=== PATIENT | female | born 1945 | race Caucasian/White ===

== ENCOUNTER 2016-09-24 19:54 | Emergency (ER) | payer OTHER, MEDICARE ==
[~2016-09-24] VITALS: Ht 157.5 cm; Wt 79.6 kg
[~2016-09-24 19:54] MED LIST: ASCA500 PO; ASPCH81 PO; CALCTAB5 PO; HYDR25TA5 PO; LISI-725 PO; LPT40 PO; MULT-506 PO; PLV75 PO; PRT/40 PO; VITA400C15 PO
[2016-09-24 20:00] VITALS: TEMP 36.4; Ht 157.5 cm; Wt 79.6 kg
[2016-09-24] MEDS ORDERED: SODIUM CHLORIDE 0.9% 1000ML 1,000 ML IV SCH (20:15)
[2016-09-24 20:25] VITALS: O2SAT 98
[2016-09-24 20:59] LABS: BASO % 0.5 %; BASO ABS # 0.03 K/uL (0-0.2); COMPLETE YES; EOS % 3.1 %; HEMATOCRIT 34.8 % (37-47); IG% 0.2 %; LYMPH % 27.2 %; LYMPH ABS # 1.51 K/uL (1.2-3.4); MEAN CELL VOLUME 88.8 fL (80-100); MEAN CORPUSCULAR HEMOGLOBIN 31.1 pg (25-34); MEAN CORPUSCULAR HGB CONC 35.1 g/dl (32-36); MEAN PLATELET VOLUME 9.2 fL (7.4-10.4); MONO % 11.9 %; NEUT % 57.1 %; PLATELET COUNT 200 K/uL (130-400); RED BLOOD COUNT 3.92 M/uL (4.2-5.4); WHITE BLOOD COUNT 5.56 K/uL (4.8-10.8)
[2016-09-24 21:12] LABS: INR 0.9 (0.9-1.1); PARTIAL THROMBOPLASTIN RATIO 0.9
[2016-09-24 21:17] LABS: BLOOD UREA NITROGEN 23 mg/dl (7-18); BUN/CREATININE RATIO 24.4 (10-20); CALCIUM 8.7 mg/dl (8.5-10.1); CARBON DIOXIDE 26 mmol/L (21-32); CHLORIDE 105 mmol/L (98-107); CREATININE 0.96 mg/dl (0.60-1.20); GLUCOSE 143 mg/dl (70-99); POTASSIUM 3.4 mmol/L (3.5-5.1); SODIUM 141 mmol/L (136-145)
--- NOTE | 2016-09-24 21:17 | DIAGNOSTIC IMAGING REPORT ---
HEAD CT NONCONTRAST CT DOSE: 601.98 mGy.cm HISTORY: Stroke symptoms. TECHNIQUE: Multiaxial CT images of the head were performed without the use of intravenous contrast. Automated exposure control was utilized for this study. Comparison: Head CT and brain MRI 09/06/2016. Findings: A few partially opacified ethmoid air cells. No fluid levels within the paranasal sinuses. The mastoid air cells are clear. The calvarium and skull base are intact. There is no mass, hematoma, midline shift, acute infarct. White matter hypodensity is nonspecific but suggestive of microvascular ischemic change. The ventricles and sulci demonstrate mild age-related involutional changes. Old small infarct seen within the left cerebellar hemisphere and right ospina radiata. These remain unchanged. Impression: No significant change compared to the prior study. No acute intracranial abnormality. Old small infarcts as described above. Electronically signed by: Aung Glover M.D. 09/24/2016 9:15 PM Dictated Date/Time: 09/24/2016 9:09 PM
[2016-09-24 21:22] LABS: CKMB/CK RATIO 1.4 (0-3.0)
--- NOTE | 2016-09-24 21:40 | EMERGENCY ROOM VISIT NOTE ---
History Report prepared by Donte: Campbell Foreman Under the Supervision of: Dr. Ramesh Moncada M.D. First contact with patient: 20:15 Chief Complaint: NEURO SYMPTOMS Stated Complaint: NECK PAIN,NUMBNESS IN FINGERS,TWINGE IN HEAD History of Present Illness The patient is a 71 year old female who presents to the Emergency Room with complaints of constant neurologic symptoms beginning 2.5 hours ago. She has a history of multiple ischemic strokes, and has had two diagnosed within the past month. The first stroke was diagnosed with MRI on August 25, and the second by MRI on September 06. She complained of left arm, hand and face weakness and numbness at the time of her most recent stroke. The patient's current symptoms include intermittent left sided neck pain, constant left third and fourth finger pain and numbness, and an episode of a "fluttering" pain sensation in the left side of her scalp. She denies any weakness. She states that her current symptoms feel different from her previous strokes. The patient is on Plavix and Aspirin. She has no history of narrowing arteries in her neck. She notes that she was helping her friend move today, and may have strained her muscles doing this. Source of History: patient Onset: 2.5 hours ago Position: head (left scalp), neck (left side), finger(s) (left third and fourth) Quality: other (neurologic symptoms ) Associated Symptoms: + neck pain (intermittent left side), + numbness (left third and fourth), No weakness Note: The patient has associated episode of "fluttering" pain in the left scalp. Review of Systems See HPI for pertinent positives & negatives. A total of 10 systems reviewed and were otherwise negative. Past Medical & Surgical Medical Problems: (1) Acute gallstone pancreatitis (2) Hypertension (3) Indigestion (4) Left hand weakness (5) Numbness and tingling in left arm (6) Stroke Family History Diabetes mellitus Gallbladder disease Heart disease Hypertension Social History Smoking Status: Former Smoker Alcohol Use: occasionally Drug Use: none Marital Status: in relationship Housing Status: lives with family Occupation Status: unemployed Current/Historical Medications Scheduled Ascorbic Acid (Vitamin C), 500 MG PO DAILY Aspirin (Aspirin Low Strength), 81 MG PO QAM Atorvastatin (Atorvastatin Calcium), 40 MG PO QAM Calcium (Caltrate), 600 MG PO DAILY Clopidogrel Bisulfate (Clopidogrel), 75 MG PO QAM Hydrochlorothiazide (Hydrochlorothiazide), 25 MG PO QAM Lisinopril (Zestril), 20 MG PO DAILY Multivitamin (Multivitamin), 1 TAB PO DAILY Pantoprazole (Pantoprazole Sodium), 40 MG PO DAILY Tocopheryl Acet,Dl-Alpha (Vitamin E), 400 INTER.UNIT PO DAILY Allergies Coded Allergies: Codeine (Verified Allergy, Unknown, UPSET STOMACH/NAUSEA, 09/24/16) Physical Exam Vital Signs Date Time Temp Pulse Resp B/P Pulse Ox O2 Delivery O2 Flow Rate FiO2 09/24/16 23:46 72 20 129/67 97 Room Air 09/24/16 22:52 79 18 117/73 98 Room Air 09/24/16 21:55 78 20 120/60 98 Room Air 09/24/16 20:25 98 Room Air 09/24/16 20:25 77 09/24/16 20:00 36.4 85 18 157/73 99 Room Air Physical Exam GENERAL: Patient is in no acute distress. HEENT: No acute trauma, normocephalic atraumatic, mucous membranes moist, no nasal congestion, no scleral icterus. NECK: No stridor, no adenopathy, no meningismus, trachea is midline. Tender along the left posterior and lateral neck musculature. No bruits heard. Equal carotid upstrokes. LUNGS: Clear to auscultation bilaterally, no wheeze, no rhonchi, breath sounds equal. HEART: Without murmurs gallops or rubs, regular rate and rhythm. ABDOMEN: Soft, nontender, bowel sounds positive, no hernias, no peritonitis. EXTREMITIES: No cyanosis or edema, full range of motion of all the joints without pain or difficulty, no signs for acute trauma. Strong left radial pulse felt. NEUROLOGIC: Oriented x 3, no acute motor or sensory deficits, no focal weakness. No cerebellar dysfunction or pronator drift. No speech slur or facial droop. SKIN: No rash, no jaundice, no diaphoresis. Medical Decision & Procedures ER Provider Diagnostic Interpretation: CT/US results as stated below per my review and radiologist interpretation: HEAD CT NONCONTRAST Findings: A few partially opacified ethmoid air cells. No fluid levels within the paranasal sinuses. The mastoid air cells are clear. The calvarium and skull base are intact. There is no mass, hematoma, midline shift, acute infarct. White matter hypodensity is nonspecific but suggestive of microvascular ischemic change. The ventricles and sulci demonstrate mild age-related involutional changes. Old small infarct seen within the left cerebellar hemisphere and right ospina radiata. These remain unchanged. Impression: No significant change compared to the prior study. No acute intracranial abnormality. Old small infarcts as described above. Electronically signed by: Aung Glover M.D. BILATERAL CAROTID DOPPLER STUDY FINDINGS: Antegrade flow is seen in the left vertebral artery. No significant flow within the right vertebral artery. The brachial pressures are hemodynamically similar. Mild calcified plaque within the bilateral carotid arteries. The peak systolic velocity within the right ICA is 88 cm/s. The right systolic ratio is 0.9. The peak systolic velocity within the left ICA is 116 centers per second. The left systolic ratio is 1.3. IMPRESSION: No hemodynamically significant stenosis seen within the carotid arteries. No significant flow within the right vertebral artery. This corresponds to the prior neck CTA/MRA findings. Electronically signed by: Aung Glover M.D. Laboratory Results 09/24/16 20:47 Red Blood Count 3.92, Mean Corpuscular Volume 88.8, Mean Corpuscular Hemoglobin 31.1, Mean Corpuscular Hemoglobin Concent 35.1, Mean Platelet Volume 9.2, Neutrophils (%) (Auto) 57.1, Lymphocytes (%) (Auto) 27.2, Monocytes (%) (Auto) 11.9, Eosinophils (%) (Auto) 3.1, Basophils (%) (Auto) 0.5, Neutrophils # (Auto ) 3.18, Lymphocytes # (Auto) 1.51, Monocytes # (Auto) 0.66, Eosinophils # (Auto ) 0.17, Basophils # (Auto) 0.03 09/24/16 20:47 Test 09/24/16 20:47 White Blood Count 5.56 K/uL (4.8-10.8) Red Blood Count 3.92 M/uL (4.2-5.4) Hemoglobin 12.2 g/dL (12.0-16.0) Hematocrit 34.8 % (37-47) Mean Corpuscular Volume 88.8 fL (80-100) Mean Corpuscular Hemoglobin 31.1 pg (25-34) Mean Corpuscular Hemoglobin Concent 35.1 g/dl (32-36) Platelet Count 200 K/uL (130-400) Mean Platelet Volume 9.2 fL (7.4-10.4) Neutrophils (%) (Auto) 57.1 % Lymphocytes (%) (Auto) 27.2 % Monocytes (%) (Auto) 11.9 % Eosinophils (%) (Auto) 3.1 % Basophils (%) (Auto) 0.5 % Neutrophils # (Auto) 3.18 K/uL (1.4-6.5) Lymphocytes # (Auto) 1.51 K/uL (1.2-3.4) Monocytes # (Auto) 0.66 K/uL (0.11-0.59) Eosinophils # (Auto) 0.17 K/uL (0-0.5) Basophils # (Auto) 0.03 K/uL (0-0.2) RDW Standard Deviation 41.2 fL (36.4-46.3) RDW Coefficient of Variation 12.8 % (11.5-14.5) Immature Granulocyte % (Auto) 0.2 % Immature Granulocyte # (Auto) 0.01 K/uL (0.00-0.02) Prothrombin Time 10.0 SECONDS (9.0-12.0) Prothromb Time International Ratio 0.9 (0.9-1.1) Activated Partial Thromboplast Time 24.6 SECONDS (21.0-31.0) Partial Thromboplastin Ratio 0.9 Anion Gap 10.0 mmol/L (3-11) Est Creatinine Clear Calc Drug Dose 54.1 ml/min Estimated GFR () 69.9 Estimated GFR (Non- 60.3 BUN/Creatinine Ratio 24.4 (10-20) Calcium Level 8.7 mg/dl (8.5-10.1) Total Creatine Kinase 76 U/L (26-192) Creatine Kinase MB 1.1 ng/ml (0.5-3.6) Creatine Kinase MB Ratio 1.4 (0-3.0) Troponin I < 0.015 ng/ml (0-0.045) Laboratory results reviewed by me. Medications Administered Medications (Trade) Dose Ordered Sig/Sushil Route Start Time Stop Time Status Last Admin Dose Admin Sodium Chloride (Nss 1000ml) 1,000 ml @ 50 mls/hr Q20H IV 09/24/16 20:15 10/24/16 20:14 09/24/16 20:56 50 MLS/HR ECG Indication: other (neuro symptoms) Rate (beats per minute): 76 Rhythm: normal sinus Findings: no acute ischemic change, no ectopy, other (Poor R-wave progression) ED Course 2014: Ordered NSS 1000 mL @ 50 mL/hr IV. 2022: The patient was evaluated in room B10. A complete history and physical exam was performed. 2130: I checked in on the patient. She is resting comfortably. 5: Reevaluated the patient. Discussed results and discharge instructions: she verbalized understanding and agreement. The patient is ready for discharge. Medical Decision The patient is a 71 year old female who presents to the ED with complaints of intermittent left neck pain, and constant left third and fourth finger numbness and pain. Differential diagnoses considered include stroke, carotid dissection, musculoskeletal pain, nerve impingement, electrolyte imbalance, neurovascular compromise, anemia, and cervical disc disease. There is no leukocytosis or concerning anemia. No significant electrolyte abnormality, kidney failure. EKG shows a normal sinus rhythm, no acute ischemia. Cardiac enzyme testing times one is not suggestive of acute cardiac injury. Brain CT shows some older infarcts, no acute bleed or mass effect. Carotid ultrasound shows no carotid dissection, the findings appear stable compared to her recent testing. On my exam, the patient had no focal neurologic deficits. She was not toxic. The patient presents with some left neck, left shoulder discomfort as well as some left third and fourth finger discomfort. She has no focal neurologic deficits on exam. The left neck pain is reproducible and I think musculoskeletal. She has been doing some lifting today and certainly, she may have aggravated this musculature. I find no evidence for acute stroke. The patient was reassured. She is being discharged home with conservative measures. Impression Primary Impression: Neck pain on left side Additional Impressions: Left hand pain, History of CVA (cerebrovascular accident) Scribe Attestation The scribe's documentation has been prepared under my direction and personally reviewed by me in its entirety. I confirm that the note above accurately reflects all work, treatment, procedures, and medical decision making performed by me. Departure Information Dispostion Home / Self-Care Referrals Tom Pineda M.D. (PCP) Forms HOME CARE DOCUMENTATION FORM, IMPORTANT VISIT INFORMATION, WORK / SCHOOL INSTRUCTIONS Patient Instructions A Signature Page, My [facility] Additional Instructions all meds as before massage to the left neck and muscles may help use tylenol for pain ice to the area for 30 minutes at a time into tomorrow, switch to using heat tomorrow afternoon return for worsening symptoms
--- NOTE | 2016-09-24 23:17 | DIAGNOSTIC IMAGING REPORT ---
BILATERAL CAROTID DOPPLER STUDY HISTORY: Left arm weakness and numbness. poss dissec, left neck COMPARISON: Neck MRA 09/06/2016. TECHNIQUE: Real-time, grayscale, and color Doppler sonography of the carotid arteries was performed. Imaging reviewed in the transverse and longitudinal planes. All measurements were calculated based on NASCET criteria. FINDINGS: Antegrade flow is seen in the left vertebral artery. No significant flow within the right vertebral artery. The brachial pressures are hemodynamically similar. Mild calcified plaque within the bilateral carotid arteries. The peak systolic velocity within the right ICA is 88 cm/s. The right systolic ratio is 0.9. The peak systolic velocity within the left ICA is 116 centers per second. The left systolic ratio is 1.3. IMPRESSION: No hemodynamically significant stenosis seen within the carotid arteries. No significant flow within the right vertebral artery. This corresponds to the prior neck CTA/MRA findings. Electronically signed by: Aung Glover M.D. 09/24/2016 11:15 PM Dictated Date/Time: 09/24/2016 11:08 PM
[2016-09-24 23:46] VITALS: BP 129/67; PULSE 72; O2SAT 97
== END 2016-09-25 00:04 | disposition home or self-care (01) ==
LOC: C.EDB 19:55
DX: M54.2 Cervicalgia (principal); M79.642 Pain in left hand; Z86.73 Personal history of transient ischemic attack (TIA), and cerebral infarction without residual deficits; I10 Essential (primary) hypertension; Z87.891 Personal history of nicotine dependence; Z83.3 Family history of diabetes mellitus; Z82.49 Family history of ischemic heart disease and other diseases of the circulatory system; Z79.02 Long term (current) use of antithrombotics/antiplatelets; Z79.82 Long term (current) use of aspirin; Z79.899 Other long term (current) drug therapy

== ENCOUNTER 2017-02-20 19:35 | Emergency (ER) | payer OTHER, MEDICARE ==
[~2017-02-20] VITALS: Ht 165.1 cm; Wt 2.0 kg
[~2017-02-20 19:35] MED LIST changes: +PANT40TA2 PO; -PRT/40 PO
[2017-02-20 19:40] VITALS: TEMP 36.5; Ht 165.1 cm; Wt 2.0 kg
[2017-02-20 20:58] LABS: BASO % 0.4 %; BASO ABS # 0.02 K/uL (0-0.2); COMPLETE YES; EOS % 1.3 %; HEMATOCRIT 36.9 % (37-47); IG% 0.2 %; LYMPH % 29.4 %; LYMPH ABS # 1.61 K/uL (1.2-3.4); MEAN CORPUSCULAR HEMOGLOBIN 31.9 pg (25-34); MEAN CORPUSCULAR HGB CONC 34.7 g/dl (32-36); MEAN PLATELET VOLUME 9.1 fL (7.4-10.4); MONO % 12.8 %; NEUT % 55.9 %; PLATELET COUNT 225 K/uL (130-400); RED BLOOD COUNT 4.01 M/uL (4.2-5.4); WHITE BLOOD COUNT 5.48 K/uL (4.8-10.8)
[2017-02-20 21:02] LABS: URINE APPEARANCE CLEAR (CLEAR); URINE BILIRUBIN NEG (NEG); URINE COLOR YELLOW; URINE NITRITE NEG (NEG); URINE SPECIFIC GRAVITY 1.018 (1.000-1.030); UROBILINOGEN NEG (NEG)
[2017-02-20 21:03] LABS: MANUAL MICROSCOPIC REQUIRED? NO; REVIEW REQ? NO
[2017-02-20 21:07] LABS: POINT OF CARE TROPONIN I 0.01 ng/ml (0-0.045)
[2017-02-20 21:14] LABS: INR 0.9 (0.9-1.1); PROTHROMBIN TIME (PATIENT) 9.7 SECONDS (9.0-12.0)
[2017-02-20 21:27] LABS: BUN/CREATININE RATIO 19.6 (10-20); CREATININE 0.94 mg/dl (0.60-1.20); POTASSIUM 3.8 mmol/L (3.5-5.1)
--- NOTE | 2017-02-20 21:28 | DIAGNOSTIC IMAGING REPORT ---
LEFT RIBS UNILATERAL WITH PA CHEST CLINICAL HISTORY: left sided pain eval for pna/fx/ptx pain COMPARISON STUDY: None FINDINGS: Negative left ribs. Cortical margins are intact. Lungs are clear. No evidence for focal infiltrate. IMPRESSION: 1. Negative left ribs. 2. Negative chest Electronically signed by: Ankit Felton M.D. 02/20/2017 9:27 PM Dictated Date/Time: 02/20/2017 9:24 PM
[2017-02-20] MEDS ORDERED: KETOROLAC TROMETHAMINE 30 MG/ML VIAL IV STA (21:46)
[2017-02-20 22:00] LABS: CALCIUM 8.7 mg/dl (8.5-10.1)
[2017-02-20 22:15] VITALS: BP 137/72; PULSE 66; O2SAT 95
--- NOTE | 2017-02-21 01:54 | EMERGENCY ROOM VISIT NOTE ---
History Report prepared by Donte: Ashley Aparicio Under the Supervision of: Dr. Peter Thompson M.D. First contact with patient: 20:14 Chief Complaint: BACK PAIN Stated Complaint: CHEST PAIN History of Present Illness The patient is a 71 year old female who presents to the Emergency Room with complaints of persistent back pain starting yesterday. Two days ago, she did some gardening work. She spent some time yanking on the cord to start a roto- tiller which would not start. The next day, she started having pain in her mid back on the left side. She thought it might be muscle pain from her work the previous day. Today the pain spread around her left side and under her breast. She describes the pain as sharp and jabbing. The pain worsens with movement. She has had looser stools since she had her gallbladder removed. She denies any worsening diarrhea. She has left sided numbness from a stroke. The numbness is mostly in her left fingers, but has spread up into her hand yesterday. She denies any cough, SOB, fever, vomiting, abdominal pain, difficulty urinating, hematuria, black or bloody stools, arm pain, leg pain, or swelling in the legs. She took her blood pressure medications today. She notes that she used to get spasms in her neck which feels similar to her current pain. Source of History: patient Onset: yesterday Position: back Quality: sharp, other (jabbing) Timing: other (persistent) Modifying Factors (Worsening): movement Associated Symptoms: + numbness, No fevers, No cough, No SOB, No vomiting, No abdominal pain, No melena, No hematochezia, No urinary symptoms Note: Pt denies arm pain, leg swelling, leg pain. Review of Systems See HPI for pertinent positives & negatives. A total of 10 systems reviewed and were otherwise negative. Past Medical & Surgical Medical Problems: (1) Acute gallstone pancreatitis (2) Hypertension (3) Indigestion (4) Left hand weakness (5) Numbness and tingling in left arm (6) Stroke Family History Diabetes mellitus Gallbladder disease Heart disease Hypertension Social History Smoking Status: Never Smoker Alcohol Use: occasionally Drug Use: none Marital Status: in relationship Housing Status: lives with family Occupation Status: unemployed Current/Historical Medications Scheduled Ascorbic Acid (Vitamin C), 500 MG PO DAILY Aspirin (Aspirin Low Strength), 81 MG PO QAM Atorvastatin (Atorvastatin Calcium), 40 MG PO QAM Calcium (Caltrate), 600 MG PO DAILY Clopidogrel Bisulfate (Clopidogrel), 75 MG PO QAM Hydrochlorothiazide (Hydrochlorothiazide), 25 MG PO QAM Lisinopril (Zestril), 20 MG PO DAILY Multivitamin (Multivitamin), 1 TAB PO DAILY Pantoprazole (Pantoprazole Sodium), 40 MG PO DAILY Tocopheryl Acet,Dl-Alpha (Vitamin E), 400 INTER.UNIT PO DAILY Allergies Coded Allergies: Codeine (Verified Adverse Reaction, Unknown, UPSET STOMACH/NAUSEA, 01/11/17 ) Physical Exam Vital Signs Date Time Temp Pulse Resp B/P (MAP) Pulse Ox O2 Delivery O2 Flow Rate FiO2 02/20/17 22:15 66 137/72 95 Room Air 02/20/17 21:51 67 02/20/17 20:37 71 20 147/61 98 Room Air 02/20/17 19:57 70 02/20/17 19:40 36.5 72 18 159/88 98 Room Air Physical Exam Constitutional: Vital signs reviewed. Eyes: Pupils are equal round reactive to light. Conjunctiva are noninjected. ENT: Pharynx is clear without erythema or exudate. Mucous membranes are moist. Neck supple without meningeal signs. Respiratory: Clear to auscultation bilaterally. Breath sounds are equal bilaterally. Cardiovascular: Regular rate and rhythm. No rubs or gallops. GI: Soft, nondistended with minimal left upper quadrant tenderness to palpation. Bowel sounds are present. Musculoskeletal: No peripheral edema. No lower extremity tenderness. Integumentary: No cyanosis. Neurological: The patient is awake and alert. Cranial nerves II-XII are intact. Motor is 5 out of 5 all extremities. Sensation is intact to light touch all extremities. No loss of sensation or diminished sensation in the left hand. Normal speech. No pronator drift. No limb ataxia. Psychiatric: Normal affect. Medical Decision & Procedures ER Provider Diagnostic Interpretation: X-ray results as stated below per interpretation by me and the radiologist: LEFT RIBS UNILATERAL WITH PA CHEST CLINICAL HISTORY: left sided pain eval for pna/fx/ptx pain COMPARISON STUDY: None FINDINGS: Negative left ribs. Cortical margins are intact. Lungs are clear. No evidence for focal infiltrate. IMPRESSION: 1. Negative left ribs. 2. Negative chest Electronically signed by: Ankit Felton M.D. 02/20/2017 9:27 PM Dictated Date/Time: 02/20/2017 9:24 PM Laboratory Results 02/20/17 20:45 Red Blood Count 4.01, Mean Corpuscular Volume 92.0, Mean Corpuscular Hemoglobin 31.9, Mean Corpuscular Hemoglobin Concent 34.7, Mean Platelet Volume 9.1, Neutrophils (%) (Auto) 55.9, Lymphocytes (%) (Auto) 29.4, Monocytes (%) (Auto) 12.8, Eosinophils (%) (Auto) 1.3, Basophils (%) (Auto) 0.4, Neutrophils # (Auto ) 3.07, Lymphocytes # (Auto) 1.61, Monocytes # (Auto) 0.70, Eosinophils # (Auto ) 0.07, Basophils # (Auto) 0.02 02/20/17 20:45 Test 02/20/17 20:30 02/20/17 20:45 02/20/17 20:47 Urine Color YELLOW Urine Appearance CLEAR (CLEAR) Urine pH 5.0 (4.5-7.5) Urine Specific [place] 1.018 (1.000-1.030) Urine Protein NEG (NEG) Urine Glucose (UA) NEG (NEG) Urine Ketones NEG (NEG) Urine Occult Blood NEG (NEG) Urine Nitrite NEG (NEG) Urine Bilirubin NEG (NEG) Urine Urobilinogen NEG (NEG) Urine Leukocyte Esterase SMALL (NEG) Urine WBC (Auto) 1-5 /hpf (0-5) Urine RBC (Auto) 0-4 /hpf (0-4) Urine Hyaline Casts (Auto) 1-5 /lpf (0-5) Urine Epithelial Cells (Auto) 10-20 /lpf (0-5) Urine Bacteria (Auto) NEG (NEG) White Blood Count 5.48 K/uL (4.8-10.8) Red Blood Count 4.01 M/uL (4.2-5.4) Hemoglobin 12.8 g/dL (12.0-16.0) Hematocrit 36.9 % (37-47) Mean Corpuscular Volume 92.0 fL (80-100) Mean Corpuscular Hemoglobin 31.9 pg (25-34) Mean Corpuscular Hemoglobin Concent 34.7 g/dl (32-36) Platelet Count 225 K/uL (130-400) Mean Platelet Volume 9.1 fL (7.4-10.4) Neutrophils (%) (Auto) 55.9 % Lymphocytes (%) (Auto) 29.4 % Monocytes (%) (Auto) 12.8 % Eosinophils (%) (Auto) 1.3 % Basophils (%) (Auto) 0.4 % Neutrophils # (Auto) 3.07 K/uL (1.4-6.5) Lymphocytes # (Auto) 1.61 K/uL (1.2-3.4) Monocytes # (Auto) 0.70 K/uL (0.11-0.59) Eosinophils # (Auto) 0.07 K/uL (0-0.5) Basophils # (Auto) 0.02 K/uL (0-0.2) RDW Standard Deviation 42.9 fL (36.4-46.3) RDW Coefficient of Variation 12.7 % (11.5-14.5) Immature Granulocyte % (Auto) 0.2 % Immature Granulocyte # (Auto) 0.01 K/uL (0.00-0.02) Prothrombin Time 9.7 SECONDS (9.0-12.0) Prothromb Time International Ratio 0.9 (0.9-1.1) Activated Partial Thromboplast Time 24.9 SECONDS (21.0-31.0) Partial Thromboplastin Ratio 1.0 Anion Gap 5.0 mmol/L (3-11) Est Creatinine Clear Calc Drug Dose 1.8 ml/min Estimated GFR () 71.7 Estimated GFR (Non- 61.9 BUN/Creatinine Ratio 19.6 (10-20) Calcium Level 8.7 mg/dl (8.5-10.1) Total Bilirubin 0.4 mg/dl (0.2-1) Direct Bilirubin 0.1 mg/dl (0-0.2) Aspartate Amino Transf (AST/SGOT) 13 U/L (15-37) Alanine Aminotransferase (ALT/SGPT) 20 U/L (12-78) Alkaline Phosphatase 66 U/L (45-117) Total Protein 7.2 gm/dl (6.4-8.2) Albumin 3.8 gm/dl (3.4-5.0) Lipase 755 U/L (73-393) Bedside D-Dimer 304 ng/mlFEU (0-450) Bedside Troponin I 0.010 ng/ml (0-0.045) Laboratory results as reviewed by me. Medications Administered Medications (Trade) Dose Ordered Sig/Sushil Route Start Time Stop Time Status Last Admin Dose Admin Ketorolac Tromethamine (Toradol Inj) 10 mg NOW STAT IV 02/20/17 21:46 02/20/17 21:47 DC 02/20/17 22:16 10 MG ECG Indication: chest pain Rate (beats per minute): 67 Rhythm: normal sinus Findings: no acute ischemic change, no ectopy ED Course 2016: The patient was evaluated in room C3. A complete history and physical exam was performed. 2137: I reevaluated the patient. She is still having some pain. She notes that she has a prior history of pancreatitis. We are waiting for the lipase to come back. 2145: Toradol Inj 10 mg IV. 2222: I reevaluated the patient. She is feeling better now after the Toradol. I discussed the results and treatment plan with her. She verbalized understanding and agreement. Her lipase was 755, but she notes that the last time she had pancreatitis her lipase was higher. I advised her to stay on a clear liquid diet. She has an appointment in 3 days with her PCP. She will be discharged home. Medical Decision This is a 71-year-old female who presents with left-sided flank pain. Differential diagnoses considered include strain, intervertebral disc disease, pneumothorax, pneumonia, kidney stone, pancreatitis, pulmonary embolism. I did perform a limited focused review of portions of the patient's old chart on the electronic medical record. The patient has a prior history of stroke with left sided weakness. Medication Reconciliation: I attest that I have personally reviewed the patient' s current medication list. Blood Pressure Screening: Patient was found to have an elevated blood pressure and was referred to their primary doctor for recheck and further treatment. I did evaluate the patient as noted above. IV access was established. The patient was placed on a continuous traffic monitor specialist. I did order and personally review the patient's 12-lead EKG and chest/rib x-rays as described above. I did order and review the patient's blood work as noted in the electronic medical record. Troponin and d-dimer negative. Lipase is mildly elevated. I did treat patient with Toradol 10 mg IV. I did reassess the patient. She states she is feeling better. I did discuss the test results with the patient. I did recommend close follow up with her doctor for reevaluation. She does state she has a appointment in 3 days. She was told to return should she have any worsening symptoms. She was discharged in good condition. Impression Primary Impression: Left flank pain Additional Impression: Elevated lipase Scribe Attestation The scribe's documentation has been prepared under my direct and personally reviewed by me in its entirety. I confirm that the note above accurately reflects all work, treatment, procedures, and medical decision making performed by me. Departure Information Dispostion Home / Self-Care Referrals Tom Pineda M.D. (PCP) Forms HOME CARE DOCUMENTATION FORM, IMPORTANT VISIT INFORMATION Patient Instructions ED Flank Pain Uncertain Cause, My [facility] Additional Instructions You have been examined and treated today on an emergency basis only. This is not a substitute for, or an effort to provide, complete comprehensive medical care. It is impossible to recognize and treat all injuries or illnesses in a single emergency department visit. It is therefore important that you follow up closely with your physician per your appointment. Return for worsening symptoms or if you develop fever, vomiting, black or tarry stools, chest pain or shortness of breath or any other concerning symptoms. Problem Qualifiers
== END 2017-02-20 22:41 | disposition home or self-care (01) ==
LOC: C.EDB 19:35 → C.EDC 22:41
DX: R10.30 Lower abdominal pain, unspecified (principal); R78.89 Finding of other specified substances, not normally found in blood; I10 Essential (primary) hypertension; K86.1 Other chronic pancreatitis; Z87.19 Personal history of other diseases of the digestive system; Z86.73 Personal history of transient ischemic attack (TIA), and cerebral infarction without residual deficits; Z79.82 Long term (current) use of aspirin; Z79.899 Other long term (current) drug therapy; Z88.5 Allergy status to narcotic agent; Z83.3 Family history of diabetes mellitus; Z83.79 Family history of other diseases of the digestive system; Z82.49 Family history of ischemic heart disease and other diseases of the circulatory system

== ENCOUNTER → 2017-02-22 | Outpatient (CLI) | payer OTHER, MEDICARE ==
[~2017-02-22] MED LIST changes: +ACET-1256 PO; +ATOR-24 PO; +CLOP1TAB15 PO; +DOCU-94 PO; +HYDR-5688 PO; +HYDR25TA4 PO; +VTME400 PO
[2017-02-22 17:29] LABS: HEMATOCRIT 39.8 % (37-47); MEAN CELL VOLUME 92.3 fL (80-100); MEAN CORPUSCULAR HEMOGLOBIN 31.6 pg (25-34); MEAN CORPUSCULAR HGB CONC 34.2 g/dl (32-36); MEAN PLATELET VOLUME 9.7 fL (7.4-10.4); PLATELET COUNT 233 K/uL (130-400); RED BLOOD COUNT 4.31 M/uL (4.2-5.4); WHITE BLOOD COUNT 5.65 K/uL (4.8-10.8)
[2017-02-22 18:03] LABS: ALT/SGPT 20 U/L (12-78); AMYLASE 136 U/L (25-115); AST/SGOT 13 U/L (15-37); BLOOD UREA NITROGEN 14 mg/dl (7-18); BUN/CREATININE RATIO 14.1 (10-20); CALCIUM 9.7 mg/dl (8.5-10.1); CARBON DIOXIDE 28 mmol/L (21-32); CHLORIDE 101 mmol/L (98-107); CREATININE 0.96 mg/dl (0.60-1.20); GLUCOSE 124 mg/dl (70-99); POTASSIUM 4.3 mmol/L (3.5-5.1); SODIUM 139 mmol/L (136-145)
[2017-02-22 18:07] LABS: ALB/GLOB RATIO 1.1 (0.9-2); ALKALINE PHOSPHATASE 68 U/L (45-117); CHOLESTEROL 150 mg/dl (0-200); CHOLESTEROL/HDL RATIO 1.9; HDL CHOLESTEROL 77 mg/dl; LDL CHOLESTEROL CALCULATED 57 mg/dl; TRIGLYCERIDES 79 mg/dl (0-150); VERY LOW DENSITY LIPOPROT CALC 16 mg/dl
== END | disposition home or self-care (01) ==
LOC: C.LABBFT 12:45
PROVIDERS: ATTEND Internal Medicine
DX: I63.9 Cerebral infarction, unspecified (principal); R74.8 Abnormal levels of other serum enzymes

== ENCOUNTER 2017-03-06 15:42 | Emergency (ER) | payer OTHER, MEDICARE ==
[~2017-03-06] VITALS: Ht 167.6 cm; Wt 79.9 kg
[~2017-03-06 15:42] MED LIST changes: -ACET-1256 PO; -ATOR-24 PO; -CLOP1TAB15 PO; -DOCU-94 PO; -HYDR-5688 PO; -HYDR25TA4 PO; -VTME400 PO
[2017-03-06 15:56] VITALS: TEMP 36.6; Ht 167.6 cm; Wt 79.9 kg
--- NOTE | 2017-03-06 16:34 | EMERGENCY ROOM VISIT NOTE ---
History Report prepared by Donte: Javid Morales Under the Supervision of: Dr. Faisal Carreon M.D. First contact with patient: 15:57 Chief Complaint: CONSTIPATION Stated Complaint: ABD PAIN / SHINGLES Nursing Triage Summary: pt arrives via EMS reports unable to have a BM since Mon and today took 4 dulcolax pills , fleet enema, 2 glycerin supp, cont with abdominal cramping pt reports currently being tx for shingles pt currently on toilet attempting to have a BM History of Present Illness The patient is a 71 year old female who presents to the Emergency Room with complaints of persistent constipation starting 3 days ago. Her last normal bowel movement was 3 days ago. She currently complains of rectal pain and states that it feels as though stool is stuck in her rectum. She has been having pain with attempting to have a bowel movement. She has tried 4 Dulcolax tabs, 2 glycerin suppositories, and 2 fleet enemas without relief. She denies fevers, chills, nausea, vomiting, abdominal pain, or any other complaints. The patient was recently started on Vicodin and Zofran. She was not placed on any stool softeners. Source of History: patient Onset: 3 days ago Position: other (global) Quality: other (constipation) Timing: other (persistent) Modifying Factors (Relieving): other (tried 4 Dulcolax tabs, 2 glycerin suppositories, and 2 fleet enemas without relief) Associated Symptoms: No fevers, No chills, No nausea, No vomiting, No abdominal pain Review of Systems All systems have been listed, reviewed, and are negative other than those previously mentioned. Please see Additional Medical History Sheet. Past Medical & Surgical Medical Problems: (1) Acute gallstone pancreatitis (2) Hypertension (3) Indigestion (4) Left hand weakness (5) Numbness and tingling in left arm (6) Stroke Family History Diabetes mellitus Gallbladder disease Heart disease Hypertension Social History Smoking Status: Former Smoker Alcohol Use: occasionally Drug Use: none Marital Status: in relationship Housing Status: lives with family Occupation Status: unemployed Current/Historical Medications Scheduled Ascorbic Acid (Vitamin C), 500 MG PO DAILY Atorvastatin (Lipitor), 40 MG PO DAILY Calcium Carbonate (Caltrate 600), 1 TAB PO QAM Clopidogrel (Plavix), 75 MG PO DAILY Docusate Sodium (Colace), 100 MG PO BID Hydrochlorothiazide (Hctz), 25 MG PO QAM Lisinopril (Zestril), 20 MG PO DAILY Multivitamin (Multivitamin), 1 TAB PO DAILY Pantoprazole (Pantoprazole Sodium), 40 MG PO DAILY Tocopheryl Acet,Dl-Alpha (Vitamin E/Dl-Alpha), 400 UNITS PO QAM Scheduled PRN Hydrocodone/Acetaminophen 5MG/325MG ([place] 5MG/325MG), 1 TAB PO TID PRN for Pain Allergies Coded Allergies: Codeine (Verified Adverse Reaction, Unknown, UPSET STOMACH/NAUSEA, 03/06/17 ) Physical Exam Vital Signs Date Time Temp Pulse Resp B/P (MAP) Pulse Ox O2 Delivery O2 Flow Rate FiO2 03/06/17 20:44 88 20 147/65 99 03/06/17 19:44 78 18 147/65 99 Room Air 03/06/17 18:21 84 03/06/17 18:06 82 20 113/44 100 Room Air 03/06/17 17:42 100 Nasal Cannula 2.0 03/06/17 17:21 78 18 106/53 100 03/06/17 15:56 36.6 81 20 128/64 100 Room Air Physical Exam GENERAL: Patient awake, alert, oriented x 3. Patient follows commands. Patient does not appear toxic. Patient is adequately hydrated and well- nourished. SKIN: Crusting lesions on the left side of the abdomen extending around the back , consistent with shingles. HEENT: Normal head, pupils equal, reactive to light and accommodation. Ears normal. Oral cavity and posterior pharynx appear normal. Neck: Without adenopathy, no neck vein distention. LUNGS: Clear to auscultation. No wheezes, no rales, no rhonchi. HEART: No murmurs. No gallops. No rubs ABDOMEN: Soft, slightly tender. RECTAL: Large amount of hard, stuart-like stool. Stool is brown but guaiac positive. EXTREMITIES: No signs of trauma. No pedal or pretibial edema. No calf or thigh tenderness. NEUROLOGIC: Cranial nerves II-XII within normal limits. No gross motor sensory function deficits. Medical Decision & Procedures ER Provider Diagnostic Interpretation: X ray results are stated below per my interpretation and the radiologist's interpretation. CHEST ONE VIEW PORTABLE CLINICAL HISTORY: Atypical chest pain. Abdominal pain. Shingles. COMPARISON STUDY: 08/24/2016 FINDINGS: The cardiac and mediastinal contours are normal. There is no evidence of focal pulmonary consolidation. There is no evidence of failure. No pleural effusions are visualized.[ IMPRESSION: No active disease in the chest. Electronically signed by: Catracho Jay M.D. 03/06/2017 7:34 PM Dictated Date/Time: 03/06/2017 7:34 PM Laboratory Results 03/06/17 18:30 03/06/17 18:30 Test 03/06/17 18:30 Red Blood Count 4.21 M/uL (4.2-5.4) Mean Corpuscular Volume 89.5 fL (80-100) Mean Corpuscular Hemoglobin 32.5 pg (25-34) Mean Corpuscular Hemoglobin Concent 36.3 g/dl (32-36) RDW Standard Deviation 40.7 fL (36.4-46.3) RDW Coefficient of Variation 12.9 % (11.5-14.5) Mean Platelet Volume 9.2 fL (7.4-10.4) Anion Gap 13.0 mmol/L (3-11) Est Creatinine Clear Calc Drug Dose 40.4 ml/min Estimated GFR () 44.3 Estimated GFR (Non- 38.2 BUN/Creatinine Ratio 16.9 (10-20) Calcium Level 10.1 mg/dl (8.5-10.1) Troponin I < 0.015 ng/ml (0-0.045) Lipase 239 U/L (73-393) Laboratory results as stated above per my review. Medications Administered Medications (Trade) Dose Ordered Sig/Sushil Route Start Time Stop Time Status Last Admin Dose Admin Ondansetron HCl (Zofran Inj) 4 mg STK-MED ONCE .ROUTE 03/06/17 18:53 03/06/17 18:54 DC 03/06/17 18:56 4 MG Procedure Digital exam was extremely painful but I was able to breakup a large amount of stool in the rectum. ECG Indication: chest pain, SOB/dyspnea Rate (beats per minute): 74 Rhythm: normal sinus Findings: no acute ischemic change, no ectopy ED Course 1557: Past medical records reviewed. The patient was evaluated in room B10. A complete history and physical examination was performed. 1724: Upon reevaluation, the patient appeared to have improvement of her symptoms. She is feeling much better after she had a large bowel movement. I discussed today's findings with her. She verbalized agreement of the treatment plan. She was discharged home. 1756: I reevaluated the patient who is now complaining of chest pain and shortness of breath. 2017: Upon reevaluation, the patient appeared to have improvement of her symptoms. She had another large bowel movement and feels much better. I discussed today's findings with her. She verbalized agreement of the treatment plan. She was discharged home. Medical Decision Differential diagnosis includes but is not limited to constipation, impaction, recent history of shingles and narcotic use for pain control . The patient was found to have a fecal impaction. She was disimpacted by me and then was able to have a large bowel movement. The patient remains sore around the rectal/anal area. The patient was reevaluated and then began complaining of some chest pain. Additional blood work and EKG were performed. Please see above. White count is elevated but I believe this is related to stress and not due to infection. The patient later had a second large bowel movement and then felt significantly better. Blood work and EKG are not consistent with an acute cardiac problem. Patient was felt safe to return home. Medication Reconciliation: I attest that I have personally reviewed the patient' s current medication list. Blood pressure Screening: Patient was found to have normal blood pressure on screening and does not require follow up. Impression Primary Impression: Fecal impaction Additional Impressions: Constipation History of shingles Scribe Attestation The scribe's documentation has been prepared under my direction and personally reviewed by me in its entirety. I confirm that the note above accurately reflects all work, treatment, procedures, and medical decision making performed by me. Departure Information Dispostion Home / Self-Care Prescriptions Docusate Sodium (COLACE) 100 Mg Cap 100 MG PO BID, #60 CAP Prov: Faisal aCrreon M.D. 03/06/17 Referrals Tom Pineda M.D. (PCP) Forms HOME CARE DOCUMENTATION FORM, IMPORTANT VISIT INFORMATION Patient Instructions My [facility] Additional Instructions 1 Colace twice a day. Continue all of your current medications as prescribed. Follow-up with your family physician. Drink extra fluids. Problem Qualifiers
[2017-03-06] MEDS ORDERED: HYDR25TA4 PO (17:03)
[2017-03-06] MEDS ORDERED: CALCTAB5 PO (17:03)
[2017-03-06] MEDS ORDERED: ATOR-24 PO (17:03)
[2017-03-06] MEDS ORDERED: VTME400 PO (17:03)
[2017-03-06] MEDS ORDERED: CLOP1TAB15 PO (17:03)
[2017-03-06] MEDS ORDERED: HYDR-5688 PO (17:03)
[2017-03-06] MEDS ORDERED: DOCU-94 PO (17:35)
[2017-03-06 17:42] VITALS: O2SAT 100
[2017-03-06 18:41] LABS: HEMATOCRIT 37.7 % (37-47); MEAN CELL VOLUME 89.5 fL (80-100); MEAN CORPUSCULAR HEMOGLOBIN 32.5 pg (25-34); MEAN CORPUSCULAR HGB CONC 36.3 g/dl (32-36); MEAN PLATELET VOLUME 9.2 fL (7.4-10.4); PLATELET COUNT 260 K/uL (130-400); RED BLOOD COUNT 4.21 M/uL (4.2-5.4); WHITE BLOOD COUNT 18.15 K/uL (4.8-10.8)
[2017-03-06] MEDS ORDERED: ONDANSETRON INJ 2 MG/ML 2 ML VIAL ONE (18:53)
[2017-03-06] MEDS ORDERED: ONDANSETRON INJ 2 MG/ML 2 ML VIAL IV PRN (19:00)
[2017-03-06 19:02] LABS: BLOOD UREA NITROGEN 24 mg/dl (7-18); BUN/CREATININE RATIO 16.9 (10-20); CALCIUM 10.1 mg/dl (8.5-10.1); CARBON DIOXIDE 24 mmol/L (21-32); CHLORIDE 99 mmol/L (98-107); GLUCOSE 139 mg/dl (70-99); POTASSIUM 3.8 mmol/L (3.5-5.1); SODIUM 136 mmol/L (136-145)
--- NOTE | 2017-03-06 19:36 | DIAGNOSTIC IMAGING REPORT ---
CHEST ONE VIEW PORTABLE CLINICAL HISTORY: Atypical chest pain. Abdominal pain. Shingles. COMPARISON STUDY: 08/24/2016 FINDINGS: The cardiac and mediastinal contours are normal. There is no evidence of focal pulmonary consolidation. There is no evidence of failure. No pleural effusions are visualized.[ IMPRESSION: No active disease in the chest. Electronically signed by: Catracho Jay M.D. 03/06/2017 7:34 PM Dictated Date/Time: 03/06/2017 7:34 PM
[2017-03-06 20:44] VITALS: BP 147/65; PULSE 88; O2SAT 99
== END 2017-03-06 20:45 | disposition home or self-care (01) ==
LOC: EDBD 15:42 → C.EDA 15:43
DX: K56.41 Fecal impaction (principal); I10 Essential (primary) hypertension; B02.9 Zoster without complications; Z86.73 Personal history of transient ischemic attack (TIA), and cerebral infarction without residual deficits; Z83.3 Family history of diabetes mellitus; Z82.49 Family history of ischemic heart disease and other diseases of the circulatory system; Z87.891 Personal history of nicotine dependence; Z79.01 Long term (current) use of anticoagulants; Z79.899 Other long term (current) drug therapy

== ENCOUNTER → 2017-03-17 | Outpatient (CLI) | payer OTHER, MEDICARE ==
[~2017-03-17] MED LIST changes: +ACET-1256 PO; -ASPCH81 PO; +ATOR-24 PO; +CLOP1TAB15 PO; +DOCU-94 PO; +HYDR-5688 PO; +HYDR25TA4 PO; -HYDR25TA5 PO; -LPT40 PO; -PANT40TA2 PO; -PLV75 PO; +PRT/40 PO; -VITA400C15 PO; +VTME400 PO
[2017-03-17 17:04] LABS: AMYLASE 142 U/L (25-115)
== END | disposition home or self-care (01) ==
LOC: C.LABBFT 11:39
PROVIDERS: ATTEND Internal Medicine
DX: R74.8 Abnormal levels of other serum enzymes (principal); R10.9 Unspecified abdominal pain

== ENCOUNTER → 2017-03-22 | Outpatient (CLI) | payer OTHER, MEDICARE ==
[~2017-03-22] MED LIST changes: +OPTIRAY 320 IV PRN
--- NOTE | 2017-03-22 12:00 | DIAGNOSTIC IMAGING REPORT ---
ABDOMEN CT WITH IV AND ORAL CONTRAST CT DOSE: 518.33 mGy.cm HISTORY: Pain R10.9 Abdominal [id number] TECHNIQUE: Multiaxial CT images of the abdomen was performed following the use of intravenous and oral contrast. COMPARISON STUDY: None. FINDINGS: The lung bases are clear. The liver, spleen, gallbladder, pancreas, kidneys, and adrenal glands are within normal limits. No bowel wall thickening or obstruction. No suspicious lytic or blastic osseous lesions. Prior cholecystectomy IMPRESSION: No significant abnormality identified within the abdomen. Prior cholecystectomy Electronically signed by: Ankit Felton M.D. 03/22/2017 11:59 AM Dictated Date/Time: 03/22/2017 11:57 AM
== END | disposition home or self-care (01) ==
LOC: C.CTS 10:37
PROVIDERS: ATTEND Internal Medicine
DX: R10.9 Unspecified abdominal pain (principal)

== ENCOUNTER → 2017-04-20 | Outpatient (CLI) | payer OTHER, MEDICARE ==
[~2017-04-20] MED LIST changes: -OPTIRAY 320 IV PRN
--- NOTE | 2017-04-20 12:32 | DIAGNOSTIC IMAGING REPORT ---
CHEST 2 VIEWS ROUTINE HISTORY: R06.09 Dyspnea on [id number] COMPARISON: Chest 03/06/2017. FINDINGS: The lungs are clear. Cardiac silhouette is normal in size. No pleural effusions. No pneumothorax. Cholecystectomy. IMPRESSION: No acute process. Electronically signed by: Aung Glover M.D. 04/20/2017 12:31 PM Dictated Date/Time: 04/20/2017 12:29 PM
[2017-04-20 13:11] LABS: HEMATOCRIT 38.7 % (37-47); MEAN CELL VOLUME 91.7 fL (80-100); MEAN CORPUSCULAR HEMOGLOBIN 31.5 pg (25-34); MEAN CORPUSCULAR HGB CONC 34.4 g/dl (32-36); MEAN PLATELET VOLUME 9.6 fL (7.4-10.4); PLATELET COUNT 257 K/uL (130-400); RED BLOOD COUNT 4.22 M/uL (4.2-5.4); WHITE BLOOD COUNT 5.44 K/uL (4.8-10.8)
[2017-04-20 13:53] LABS: ALT/SGPT 22 U/L (12-78); AMYLASE 138 U/L (25-115); AST/SGOT 15 U/L (15-37); BLOOD UREA NITROGEN 27 mg/dl (7-18); BUN/CREATININE RATIO 22.4 (10-20); CALCIUM 9.9 mg/dl (8.5-10.1); CARBON DIOXIDE 28 mmol/L (21-32); CHLORIDE 100 mmol/L (98-107); GLUCOSE 111 mg/dl (70-99); POTASSIUM 4.5 mmol/L (3.5-5.1); SODIUM 134 mmol/L (136-145)
[2017-04-20 13:55] LABS: ALB/GLOB RATIO 0.9 (0.9-2); ALKALINE PHOSPHATASE 68 U/L (45-117)
== END | disposition home or self-care (01) ==
LOC: C.LAB 11:51
PROVIDERS: ATTEND Physician Assistant Medical
DX: R06.09 Other forms of dyspnea (principal); R10.9 Unspecified abdominal pain

== ENCOUNTER → 2017-04-25 | Outpatient (CLI) | payer OTHER, MEDICARE ==
--- NOTE | 2017-04-25 15:41 | EXERCISE STRESS ECHO ---
*NOTICE TO RECEIVING LIBERTARIAN AGENCY This information is strictly Confidential and protected under [place] law. [place] law prohibits you from making any further disclosure of this information unless further disclosure is expressly permitted by the written consent of the person to whom it pertains or is authorized by law. A general authorization for the release of medical or other information is not sufficient for this purpose. Hospital accepts no responsibility if the information is made available to any other person, INCLUDING THE PATIENT. Interpretation Summary * Name: NORMAN JUNG Study Date: 04/25/2017 09:41 AM BP: 106/54 mmHg * Patient Location: [facility] HR: 67 * : 1945 (M/d/yyyy) Gender: Female Height: 62 in * Age: 72 yrs Ethnicity: [place] Weight: 166 lb * Ordering Physician: Rafaela Perla * Referring Physician: Rafaela Perla * Performed By: France Kay [facility] * * Reason For Study: H/O CVA * BSA: 1.8 m2 * Low normal resting left ventricular systolic function. * Mild concentric left ventricular treated. * Class 1 left ventricular diastolic dysfunction. * Normal chamber dimensions. * Trace tricuspid regurgitation. * Mild mitral regurgitation. * Trace tricuspid and pulmonic regurgitation. * The exercise echocardiographic examination is normal without resting left ventricular wall motion abnormalities or inducible ischemia. * The left ventricular ejection fraction increases normally with stress. The left ventricular end-systolic cavity size reduces post-stress (normal response). The left ventricular wall motion with stress is normal. * The stress ECG response was normal * Stress wall motion was normal. * -- Conclusions -- * No segmental left ventricular wall motion abnormalities are noted. * Aortic valve sclerosis mild, without significant aortic valvular stenosis. Procedure Details * ECHOEX, CPT #[id number] * ECHO COLOR FLOW, CPT #[id number] * ECHO DOPPLER, CPT #[id number] Left Ventricle * The left ventricle is normal in size. * There is mild concentric left ventricular hypertrophy. * Ejection Fraction = 50-55%. * The left ventricular ejection fraction increases normally with stress. The left ventricular end-systolic cavity size reduces post-stress (normal response). The left ventricular wall motion with stress is normal. * No segmental left ventricular wall motion abnormalities are noted. * A full diastolic examination was done with clinical findings of Class I diastolic dysfunction. * Left ventricular systolic function is low normal. * No regional wall motion abnormalities noted. Right Ventricle * The right ventricle is normal in size and function. Atria * The left atrial size is normal. * Right atrial size is normal. * No ASD detected; PFO is not assessed. Mitral Valve * The mitral valve leaflets appear thickened, but open well. * No significant mitral valve stenosis. * There is mild mitral regurgitation. Tricuspid Valve * The tricuspid valve is not well visualized, but is grossly normal. * There is trace tricuspid regurgitation. * Right ventricular systolic pressure is normal. Aortic Valve * The aortic valve is trileaflet. * The aortic valve opens well. * Aortic valve sclerosis mild, without significant aortic valvular stenosis. * No aortic regurgitation is present. Pulmonic Valve * The pulmonic valve is not well visualized. * Pulmonic stenosis is absent. * Trace pulmonic valvular regurgitation. Great Vessels * The aortic root is normal size. Pericardium * There is no pericardial effusion. Stress Parameters * Normal baseline electrocardiogram. * The baseline ECG displays normal ST segments. * The stress ECG response was normal * Arrhythmia noted in recovery: occasional PVC's. * The stress portion of this study was personally supervised by the undersigned interpreting physician. * Rest heart rate was '67' BPM. * Rest blood pressure was '106/54' * Maximum heart rate achieved was 160 bpm. * Maximum heart rate was 106 % of maximum age-predicted heart rate. * Maximum blood pressure was '157/53' * Total exercise time was '02:49' * Maximum exercise MET level achieved was '4.60' METS * Maximum treadmill speed was '1.70' miles per hour. * Maximum treadmill elevation was '10.00'% grade. * Exercise was terminated due to 'fatigue' MMode 2D Measurements and Calculations IVSd 1.4 cm IVSs 1.7 cm LVIDd 3.5 cm LVIDs 2.6 cm LVPWd 1.4 cm LVPWs 1.7 cm IVS/LVPW 1.0 FS 26.0 % EDV(Teich) 50.9 ml ESV(Teich) 24.3 ml EF(Teich) 52.2 % EDV(cubed) 42.9 ml ESV(cubed) 17.4 ml EF(cubed) 59.6 % % IVS thick 17.7 % % LVPW thick 20.2 % LV mass(C)d 180.5 grams LV mass(C)dI 102.2 grams/m\S\2 LV mass(C)s 166.6 grams LV mass(C)sI 94.4 grams/m\S\2 SV(Teich) 26.5 ml SI(Teich) 15.0 ml/m\S\2 SV(cubed) 25.6 ml SI(cubed) 14.5 ml/m\S\2 Ao root diam 3.0 cm Ao root area 7.1 cm\S\2 ACS 1.8 cm LA dimension 2.6 cm LA/Ao 0.87 LVOT diam 1.8 cm LVOT area 2.6 cm\S\2 LVAd ap4 30.7 cm\S\2 LVLd ap4 7.9 cm EDV(MOD-sp4) 97.6 ml EDV(sp4-el) 101.3 ml LVAs ap4 21.4 cm\S\2 LVLs ap4 7.3 cm ESV(MOD-sp4) 54.0 ml ESV(sp4-el) 53.0 ml EF(MOD-sp4) 44.7 % EF(sp4-el) 47.6 % LVAd ap2 31.4 cm\S\2 LVLd ap2 8.1 cm EDV(MOD-sp2) 100.6 ml EDV(sp2-el) 103.7 ml LVAs ap2 22.3 cm\S\2 LVLs ap2 7.4 cm ESV(MOD-sp2) 56.3 ml ESV(sp2-el) 57.6 ml EF(MOD-sp2) 44.0 % EF(sp2-el) 44.5 % LVLd %diff 2.2 % EDV(MOD-bp) 98.8 ml LVLs %diff 0.67 % ESV(MOD-bp) 54.9 ml EF(MOD-bp) 44.5 % SV(MOD-sp4) 43.6 ml SI(MOD-sp4) 24.7 ml/m\S\2 SV(MOD-sp2) 44.3 ml SI(MOD-sp2) 25.1 ml/m\S\2 SV(MOD-bp) 43.9 ml SI(MOD-bp) 24.9 ml/m\S\2 SV(sp4-el) 48.2 ml SI(sp4-el) 27.3 ml/m\S\2 SV(sp2-el) 46.2 ml SI(sp2-el) 26.1 ml/m\S\2 Doppler Measurements and Calculations MV E max jose 98.1 cm/sec MV A max jose 161.8 cm/sec MV E/A 0.61 MV P1/2t max jose 124.8 cm/sec MV P1/2t 74.6 msec MVA(P1/2t) 2.9 cm\S\2 MV dec slope 490.0 cm/sec\S\2 MV dec time 0.34 sec Ao V2 max 128.8 cm/sec Ao max PG 6.6 mmHg Ao max PG (full) 4.4 mmHg LEONARDO(V,A) 1.5 cm\S\2 LEONARDO(V,D) 1.5 cm\S\2 LV V1 max PG 2.2 mmHg LV V1 max 74.4 cm/sec PA V2 max 82.4 cm/sec PA max PG 2.7 mmHg PI max jose 148.3 cm/sec PI max PG 8.8 mmHg PI dec slope 125.9 cm/sec\S\2 PI P1/2t 345.1 msec TR max jose 211.3 cm/sec
== END | disposition home or self-care (01) ==
LOC: C.CPL 09:09
PROVIDERS: ATTEND Physician Assistant Medical
DX: I63.9 Cerebral infarction, unspecified (principal); M62.81 Muscle weakness (generalized)

== ENCOUNTER 2017-04-26 17:00 | Inpatient (IN) | payer OTHER, MEDICARE ==
[~2017-04-26] VITALS: Ht 157.5 cm; Wt 76.9 kg
[~2017-04-26 17:00] MED LIST changes: -ACET-1256 PO
[2017-04-26] MEDS ORDERED: SODIUM CHLORIDE 0.9% 1000ML 1,000 ML IV SCH (17:21)
--- NOTE | 2017-04-26 17:41 | DIAGNOSTIC IMAGING REPORT ---
CT HEAD WITHOUT CONTRAST (CT) CLINICAL HISTORY: Stroke LEFT-SIDED NUMBNESS COMPARISON STUDY: 09/24/2016 TECHNIQUE: Axial CT of the brain is performed from the vertex to the skull base. IV contrast was not administered for this examination. A dose lowering technique was utilized adhering to the principles of ALARA. CT DOSE: 569.73 mGy.cm FINDINGS: No intra or extra-axial mass lesions are visualized. There is no CT evidence of acute cortical infarction. There is no evidence of midline shift. There is no acute hemorrhage. No calvarial fractures are visualized. There are patchy white matter hypodensities likely on a small vessel basis. There is an old deep white matter infarct within the right parietal lobe. There are old cerebellar lacunar infarcts. There is no evidence of pathologic ventricular dilatation. There is no evidence of acute sinusitis IMPRESSION: No acute intracranial findings Electronically signed by: Catracho Jay M.D. 04/26/2017 5:40 PM Dictated Date/Time: 04/26/2017 5:38 PM
--- NOTE | 2017-04-26 17:56 | DIAGNOSTIC IMAGING REPORT ---
CHEST ONE VIEW PORTABLE CLINICAL HISTORY: Stroke COMPARISON STUDY: 04/20/2017 FINDINGS: The cardiac and mediastinal contours are normal. There is no evidence of focal pulmonary consolidation. There is no evidence of failure. No pleural effusions are visualized.[ IMPRESSION: No active disease in the chest. Electronically signed by: Catracho Jay M.D. 04/26/2017 5:55 PM Dictated Date/Time: 04/26/2017 5:55 PM
[2017-04-26] MEDS ORDERED: ACET-1256 PO (17:58)
[2017-04-26 18:25] LABS: BASO % 0.4 %; BASO ABS # 0.03 K/uL (0-0.2); COMPLETE YES; EOS % 0.4 %; HEMATOCRIT 35.9 % (37-47); IG% 0.3 %; LYMPH % 28.9 %; LYMPH ABS # 1.94 K/uL (1.2-3.4); MEAN CELL VOLUME 89.5 fL (80-100); MEAN CORPUSCULAR HEMOGLOBIN 31.7 pg (25-34); MEAN CORPUSCULAR HGB CONC 35.4 g/dl (32-36); MEAN PLATELET VOLUME 9.2 fL (7.4-10.4); MONO % 12.5 %; NEUT % 57.5 %; PLATELET COUNT 314 K/uL (130-400); RED BLOOD COUNT 4.01 M/uL (4.2-5.4); WHITE BLOOD COUNT 6.71 K/uL (4.8-10.8)
[2017-04-26 18:44] LABS: BLOOD UREA NITROGEN 20 mg/dl (7-18); BUN/CREATININE RATIO 15.4 (10-20); CALCIUM 9.5 mg/dl (8.5-10.1); CARBON DIOXIDE 24 mmol/L (21-32); CHLORIDE 98 mmol/L (98-107); GLUCOSE 102 mg/dl (70-99); POTASSIUM 4.3 mmol/L (3.5-5.1); SODIUM 134 mmol/L (136-145)
[2017-04-26 18:54] LABS: PROTHROMBIN TIME (PATIENT) 10.3 SECONDS (9.0-12.0)
[2017-04-26] MEDS ORDERED: MAGNESIUM HYDROXIDE SUSP 30 ML UDC PO PRN (19:45)
[2017-04-26] MEDS ORDERED: PHARMACIST DISCHARGE MED REC CONSULT PRN (19:45)
[2017-04-26] MEDS ORDERED: ONDANSETRON INJ 2 MG/ML 2 ML VIAL IV PRN (19:45)
[2017-04-26] MEDS ORDERED: ALUMINUM/MAGNESIUM/SIMETH (MAALOX MAX) 30 ML UDC PO PRN (19:45)
--- NOTE | 2017-04-26 19:52 | History and Physical ---
History & Physical Date & Time of Service: Apr 26, 2017 at 19:52 Chief Complaint: Dizziness, Numbness L Arm & Leg Primary Care Physician: Tom Pineda M.D. History of Present Illness Source: patient, spouse Mrs Tarango is a 72 yo F with hx of stroke in Aug 2016, which had residual left hand numbness, who presented w/stroke like symptoms again today. She reports she was out getting her oil changed and noticed a facial droop, bilateral arm numbness and leg weakness. She drove herself to the ED. She reports the symptoms have mostly resolved now. She reports she has persistent left hand numbness from her old stroke. She was on Aspirin and Plavix after her first stroke, but the Aspirin was stopped a few months ago since she was bruising so much on it. She also reports feeling overall lightheaded and fatigued since April 14 specifically. She reports she was at a convention prior to that and thinks she did too much. Upon returning home on the she became very lightheaded. This occurs both at rest and with doing activities. Nothing makes it better or worse. She had a stress test completed yesterday and reports her heart rate went up to its max about 3 minutes into the test. She was told she just needs to exercise more, which upset her, but she overall agreed because she feels she has not been doing as much since feeling lightheaded. Past Medical/Surgical History Medical Problems: (1) Hypertension Status: Chronic (2) Indigestion Status: Chronic Family History Diabetes mellitus Gallbladder disease Heart disease Hypertension Social History Smoking Status: Former Smoker Smokeless Tobacco Use: No Alcohol Use: none Drug Use: none Marital Status: in relationship Housing status: lives alone Occupational Status: unemployed Immunizations History of Influenza Vaccine: Unknown History of Tetanus Vaccine?: Unknown History of Pneumococcal: Unknown History of Hepatitis B Vaccine: Unknown Multi-Drug Resistant Organisms History of MDRO: No Allergies Coded Allergies: Acetaminophen (Unverified Adverse Reaction, Unknown, nausea, 04/26/17) Codeine (Verified Adverse Reaction, Unknown, UPSET STOMACH/NAUSEA, 04/26/17) Oxycodone (Unverified Adverse Reaction, Unknown, nausea, 04/26/17) Home Medications Scheduled Ascorbic Acid (Vitamin C), 500 MG PO DAILY Atorvastatin (Lipitor), 40 MG PO DAILY Calcium Carbonate (Caltrate 600), 1 TAB PO QAM Clopidogrel (Plavix), 75 MG PO DAILY Hydrochlorothiazide (Hctz), 25 MG PO QAM Lisinopril (Zestril), 20 MG PO DAILY Multivitamin (Multivitamin), 1 TAB PO DAILY Pantoprazole (Pantoprazole Sodium), 40 MG PO DAILY Tocopheryl Acet,Dl-Alpha (Vitamin E/Dl-Alpha), 400 UNITS PO QAM Scheduled PRN Acetaminophen (Tylenol), 1,000 MG PO DAILY PRN for Pain Review of Systems See HPI for pertinent positives & negatives. A total of 10 systems reviewed and were otherwise negative. Physical Exam Vital Signs Date Time Temp Pulse Resp B/P (MAP) Pulse Ox O2 Delivery O2 Flow Rate FiO2 04/26/17 19:02 76 18 124/59 98 Room Air 04/26/17 17:55 73 20 123/51 100 Room Air 04/26/17 17:28 80 18 107/52 100 Room Air 04/26/17 17:28 100 Room Air 04/26/17 17:14 71 General Appearance: WD/WN, no apparent distress, + thin Head: normocephalic, atraumatic Eyes: normal inspection, PERRL ENT: hearing grossly normal Neck: supple, no JVD Respiratory/Chest: lungs clear, normal breath sounds, no respiratory distress Cardiovascular: regular rate, rhythm, no murmur, normal peripheral pulses Abdomen/GI: non tender, soft Back: no CVA tenderness, no muscle spasm Extremities/Musculoskelatal: no calf tenderness, no pedal edema Neurologic/Psych: alert, normal mood/affect, normal reflexes, oriented x 3 Skin: no rash Diagnostics Laboratory Results Results Past 24 Hours Test 04/26/17 17:21 04/26/17 17:46 04/26/17 17:47 04/26/17 17:57 Range/Units Bedside Glucose 106 70-90 mg/dl Bedside Prothrombin Time INR 0.9 0.9-1.1 White Blood Count 6.71 4.8-10.8 K/uL Red Blood Count 4.01 4.2-5.4 M/uL Hemoglobin 12.7 12.0-16.0 g/dL Hematocrit 35.9 37-47 % Mean Corpuscular Volume 89.5 80-100 fL Mean Corpuscular Hemoglobin 31.7 25-34 pg Mean Corpuscular Hemoglobin Concent 35.4 32-36 g/dl Platelet Count 314 130-400 K/uL Mean Platelet Volume 9.2 7.4-10.4 fL Neutrophils (%) (Auto) 57.5 % Lymphocytes (%) (Auto) 28.9 % Monocytes (%) (Auto) 12.5 % Eosinophils (%) (Auto) 0.4 % Basophils (%) (Auto) 0.4 % Neutrophils # (Auto) 3.85 1.4-6.5 K/uL Lymphocytes # (Auto) 1.94 1.2-3.4 K/uL Monocytes # (Auto) 0.84 0.11-0.59 K/uL Eosinophils # (Auto) 0.03 0-0.5 K/uL Basophils # (Auto) 0.03 0-0.2 K/uL RDW Standard Deviation 41.1 36.4-46.3 fL RDW Coefficient of Variation 12.6 11.5-14.5 % Immature Granulocyte % (Auto) 0.3 % Immature Granulocyte # (Auto) 0.02 0.00-0.02 K/uL Prothrombin Time 10.3 9.0-12.0 SECONDS Prothromb Time International Ratio 1.0 0.9-1.1 Activated Partial Thromboplast Time 26.3 21.0-31.0 SECONDS Partial Thromboplastin Ratio 1.0 Sodium Level 134 136-145 mmol/L Potassium Level 4.3 3.5-5.1 mmol/L Chloride Level 98 98-107 mmol/L Carbon Dioxide Level 24 21-32 mmol/L Anion Gap 12.0 3-11 mmol/L Blood Urea Nitrogen 20 7-18 mg/dl Creatinine 1.30 0.60-1.20 mg/dl Est Creatinine Clear Calc Drug Dose 38.3 ml/min Estimated GFR () 48.1 Estimated GFR (Non- 41.5 BUN/Creatinine Ratio 15.4 10-20 Random Glucose 102 70-99 mg/dl Calcium Level 9.5 8.5-10.1 mg/dl Total Creatine Kinase 62 26-192 U/L Creatine Kinase MB < 0.5 0.5-3.6 ng/ml Creatine Kinase MB Ratio 0-3.0 Troponin I < 0.015 0-0.045 ng/ml Test 04/26/17 19:44 Range/Units Diagnostic Radiology ECHO 04/25/17 * Low normal resting left ventricular systolic function. * Mild concentric left ventricular treated. * Class 1 left ventricular diastolic dysfunction. * Normal chamber dimensions. * Trace tricuspid regurgitation. * Mild mitral regurgitation. * Trace tricuspid and pulmonic regurgitation. * The exercise echocardiographic examination is normal without resting left ventricular wall motion abnormalities or inducible ischemia. * The left ventricular ejection fraction increases normally with stress. The left ventricular end-systolic cavity size reduces post-stress (normal response) . The left ventricular wall motion with stress is normal. CXR normal Normal EKG, No change from prior EKG Impression Assessment and Plan 72 yo F with HTN and hx of stroke, on plavix for secondary prevention, who presents w/further stroke like symptoms Potential CVA - MRI Brain - Neuro consult, Dr Perez is aware - Previously had neck MRA so will hold off for now - Neuro checks - Telemetry monitoring - Screening for secondary risk factors - Monitor for aspiration HTN - Continue Lisinopril 20mg - Hold HCTZ for now Dyslipidemia - Continue Lipitor 40mg VTE: SCDs Code Status: Full Dispo: Admit to Tele Attending Addendum: I have physically seen and examined this patient, have supervised the medical residents activities, and agree with the H&P as noted above with the following exceptions: NONE The patient is awake, well-developed and adequately nourished, alert and oriented 3, normocephalic and atraumatic, lying in bed and in no acute distress. HEENT--PERRL, EOMI, mucous membranes and oropharynx dry. Neck--supple, no JVD or bruits, thyroid normal, trachea midline, no adenopathy. Heart--normal S1 and S2, no extra beats, no murmurs, rubs or gallops. Lungs--clear bilaterally with good air movement, no respiratory distress, no accessory muscle use. Abdomen--normal bowel sounds and soft, nontender and nondistended, no hernias or masses, no organomegaly. Extremities--no cyanosis, clubbing or edema. There are good distal pulses b/l. Dermatologic--normal skin turgor, normal color, warm and dry, no abnormal lymph nodes, no rash. Neurologic--cranial nerves II through XII grossly intact. Decreased strength left arm, and numbness left arm along dorsal aspect of forearm into hand. Rheumatologic--normal range of motion, nontender, muscles and joints. Psychiatric--normal affect. Assessment and Plan: 1. Cerebrovascular disease/residual left upper extremity numbness/resolved facial droop and right arm numbness, leg weakness, but persistent left upper extremity numbness is worse than her baseline. Admit to telemetry, monitor for arrhythmia and order a 2-D echocardiogram with Dopplers. Order MRI brain combo. Continue Plavix 75 mg by mouth daily, and would resume aspirin 81 mg by mouth daily, but will leave that up to Dr. Perez. Neuro checks every 4 hours. Hypercoagulable workup. For dyslipidemia continue Lipitor 40 mg daily. Level of Care Telemetry Advanced Directives Existing Advance Directive: No Existing Living Will: Yes Existing Power of Senior Software Architect: Yes Resuscitation Status FULL RESUSCITATION VTE Prophylaxis VTE Risk Assessment Done? Y/N: Yes Risk Level: Moderate Given or contraindicated: SCD's Social Service Consult None Apply Resident Tracking Resident Involvement: Resident Care Provided Care Provided: Adult Hospital Medicine
[2017-04-26 20:04] VITALS: Ht 157.5 cm; Wt 76.9 kg
--- NOTE | 2017-04-26 21:03 | DIAGNOSTIC IMAGING REPORT ---
MRI OF THE BRAIN WITHOUT AND WITH IV CONTRAST CLINICAL HISTORY: Stroke LEFT ARM NUMBNESS AND TINGLING. LEFT FACIAL NUMBNESS. MINOR HEADACHES. DIZZINESS. COMPARISON STUDY: Head CT dated 04/26/2017, MRI the brain dated 09/06/2016 TECHNIQUE: MRI of the brain was performed from the vertex to the skull base utilizing various T1 and T2 weighted sequences. Following the IV administration of 7.5 mL of Gadavist contrast, additional enhanced images were obtained. FINDINGS: Sagittal T1, axial diffusion, proton density and T2 weighted axial, coronal FLAIR, and pre and post axial T1-weighted images were acquired. These were supplemented with post gadolinium coronal T1 weighted images. No intra or extra-axial mass lesions are visualized. There is a partially empty sella. Axial diffusion-weighted images reveal no evidence of acute or subacute infarction. There is no evidence of ventricular dilatation. Proton density T2-weighted and FLAIR images reveal scattered foci of increased T2 signal within the white matter, likely on a small vessel basis. There are old cerebellar lacunar infarcts. There is an old right hemispheric ventricular deep white matter infarct. There are no abnormal flow voids. There is no evidence of pathologic enhancement. IMPRESSION: 1. No acute intracranial findings 2. No evidence of acute or subacute infarction 3. No evidence of intracranial mass 4. Multiple old cerebellar lacunar infarcts. Old right periventricular deep white matter infarct. Electronically signed by: Catracho Jay M.D. 04/26/2017 9:02 PM Dictated Date/Time: 04/26/2017 8:57 PM
[2017-04-26 21:08] VITALS: BP 150/68; PULSE 75; PULSE 77; TEMP 36.5; O2SAT 97
[2017-04-26] MEDS ORDERED: PNEUMOCOCCAL ADMINISTRATION CHARGE ONE (21:15)
[2017-04-26] MEDS ORDERED: PNEUMOCOCCAL POLYSACCHARIDES 25 MCG/0.5 ML VIAL/SYR IM. ONE (21:15)
[2017-04-26] MEDS: SODIUM CHLORIDE 0.9% 1000ML 1,000 ML IV SCH (22:12)
[2017-04-27] VITALS (8 sets, daily range): BP systolic 95–111; BP diastolic 52–65; PULSE 70–80; TEMP 36.7–36.9; O2SAT 94–100
--- NOTE | 2017-04-27 00:19 | EMERGENCY ROOM VISIT NOTE ---
History Report prepared by Donte: Flora Degroot Under the Supervision of: Dr. Que Plaza M.D. First contact with patient: 17:16 Chief Complaint: STROKE SYMPTOMS Stated Complaint: DIZZINESS, NUMBNESS L ARM & LEG History of Present Illness The patient is a 72 year old female who presents to the Emergency Room with complaints of persistent stroke symptoms beginning 2 hours ago. The patient states that she was getting her oil changed today when she began feeling lightheaded and noticed that she had left hand numbness that was going up her arm. She reports that she started having numbness in the left side of her face and became nervous as she has a previous history of a stroke 9 months ago. She complains of bilateral hand numbness, bilateral leg weakness, and numbness on the back side of her head. The patient states that she drove home after her oil change and was feeling woozy.She states that her symptoms with her previous stroke were similar to her symptoms today. She reports that her symptoms have improved since they began but she is still having some residual tingling in the left arm and weakness in both of her legs. She notes that she has been lightheaded for about 10 days and had a stress test recently. Pt denies LOC, headache, fevers, chills, diaphoresis, visual changes, neck pain, chest pain, breathing difficulties, nausea, vomiting, abdominal pain, back pain, melena, hematochezia, urinary symptoms, lymphadenopathy, rash, or other complaints. She notes a history of shingles on her abdomen and back 2 months ago. Source of History: patient Onset: 2 hours ago Position: other (global) Quality: other (stroke symptoms) Timing: constant Review of Systems See HPI for pertinent positives and negatives. A total of ten systems were reviewed and were otherwise negative. Past Medical & Surgical Medical Problems: (1) Acute gallstone pancreatitis (2) Hypertension (3) Indigestion (4) Left hand weakness (5) Numbness and tingling in left arm (6) Stroke (7) Stroke-like symptoms Family History Diabetes mellitus Gallbladder disease Heart disease Hypertension Social History Smoking Status: Former Smoker Alcohol Use: occasionally Drug Use: none Marital Status: in relationship Housing Status: lives with family Occupation Status: unemployed Current/Historical Medications Scheduled Ascorbic Acid (Vitamin C), 500 MG PO DAILY Atorvastatin (Lipitor), 40 MG PO DAILY Calcium Carbonate (Caltrate 600), 1 TAB PO QAM Clopidogrel (Plavix), 75 MG PO DAILY Hydrochlorothiazide (Hctz), 25 MG PO QAM Lisinopril (Zestril), 20 MG PO DAILY Multivitamin (Multivitamin), 1 TAB PO DAILY Pantoprazole (Pantoprazole Sodium), 40 MG PO DAILY Tocopheryl Acet,Dl-Alpha (Vitamin E/Dl-Alpha), 400 UNITS PO QAM Scheduled PRN Acetaminophen (Tylenol), 1,000 MG PO DAILY PRN for Pain Allergies Coded Allergies: Acetaminophen (Unverified Adverse Reaction, Unknown, nausea, 04/26/17) Codeine (Verified Adverse Reaction, Unknown, UPSET STOMACH/NAUSEA, 04/26/17) Oxycodone (Unverified Adverse Reaction, Unknown, nausea, 04/26/17) Physical Exam Vital Signs Date Time Temp Pulse Resp B/P (MAP) Pulse Ox O2 Delivery O2 Flow Rate FiO2 04/26/17 19:02 76 18 124/59 98 Room Air 04/26/17 17:55 73 20 123/51 100 Room Air 04/26/17 17:28 80 18 107/52 100 Room Air 04/26/17 17:28 100 Room Air 04/26/17 17:14 71 Physical Exam GENERAL: Awake, alert, well appearing, no distress HENT: Normocephalic, atraumatic. TM's normal. Oropharynx unremarkable. EYES: PERRL. EOMI. Normal conjunctiva. Sclera non-icteric. NECK: Supple. No nuchal rigidity. FROM. No JVD or bruit. RESPIRATORY: CTA CARDIAC: RRR. No murmur. ABDOMEN: Soft, non distended. No tenderness to palpation. No rebound or guarding. No masses. RECTAL: Deferred. MUSCULOSKELETAL: Unremarkable. No edema. No discoloration. Gross motor strength symmetric. NEURO: Cranial nerves 2-12 grossly intact. Normal sensorium. No sensory or motor deficits noted. Speech normal. No pronator drift. Subjective tingling in both hands, 4.5/5 strength in extremities bilaterally. SKIN: No rash or jaundice noted. LYMPH: No adenopathy. Medical Decision & Procedures ER Provider Diagnostic Interpretation: Radiology results as stated below per my review and radiologist interpretation: CT HEAD WITHOUT CONTRAST (CT) FINDINGS: No intra or extra-axial mass lesions are visualized. There is no CT evidence of acute cortical infarction. There is no evidence of midline shift. There is no acute hemorrhage. No calvarial fractures are visualized. There are patchy white matter hypodensities likely on a small vessel basis. There is an old deep white matter infarct within the right parietal lobe. There are old cerebellar lacunar infarcts. There is no evidence of pathologic ventricular dilatation. There is no evidence of acute sinusitis IMPRESSION: No acute intracranial findings Electronically signed by: Catracho Jay M.D. 04/26/2017 5:40 PM Dictated Date/Time: 04/26/2017 5:38 PM CHEST ONE VIEW PORTABLE FINDINGS: The cardiac and mediastinal contours are normal. There is no evidence of focal pulmonary consolidation. There is no evidence of failure. No pleural effusions are visualized.[ IMPRESSION: No active disease in the chest. Electronically signed by: Catracho Jay M.D. 04/26/2017 5:55 PM Dictated Date/Time: 04/26/2017 5:55 PM Laboratory Results 04/26/17 17:57 Red Blood Count 4.01, Mean Corpuscular Volume 89.5, Mean Corpuscular Hemoglobin 31.7, Mean Corpuscular Hemoglobin Concent 35.4, Mean Platelet Volume 9.2, Neutrophils (%) (Auto) 57.5, Lymphocytes (%) (Auto) 28.9, Monocytes (%) (Auto) 12.5, Eosinophils (%) (Auto) 0.4, Basophils (%) (Auto) 0.4, Neutrophils # (Auto ) 3.85, Lymphocytes # (Auto) 1.94, Monocytes # (Auto) 0.84, Eosinophils # (Auto ) 0.03, Basophils # (Auto) 0.03 04/26/17 17:57 Test 04/26/17 17:46 04/26/17 17:47 04/26/17 17:57 Bedside Glucose 106 mg/dl (70-90) Bedside Prothrombin Time INR 0.9 (0.9-1.1) White Blood Count 6.71 K/uL (4.8-10.8) Red Blood Count 4.01 M/uL (4.2-5.4) Hemoglobin 12.7 g/dL (12.0-16.0) Hematocrit 35.9 % (37-47) Mean Corpuscular Volume 89.5 fL (80-100) Mean Corpuscular Hemoglobin 31.7 pg (25-34) Mean Corpuscular Hemoglobin Concent 35.4 g/dl (32-36) Platelet Count 314 K/uL (130-400) Mean Platelet Volume 9.2 fL (7.4-10.4) Neutrophils (%) (Auto) 57.5 % Lymphocytes (%) (Auto) 28.9 % Monocytes (%) (Auto) 12.5 % Eosinophils (%) (Auto) 0.4 % Basophils (%) (Auto) 0.4 % Neutrophils # (Auto) 3.85 K/uL (1.4-6.5) Lymphocytes # (Auto) 1.94 K/uL (1.2-3.4) Monocytes # (Auto) 0.84 K/uL (0.11-0.59) Eosinophils # (Auto) 0.03 K/uL (0-0.5) Basophils # (Auto) 0.03 K/uL (0-0.2) RDW Standard Deviation 41.1 fL (36.4-46.3) RDW Coefficient of Variation 12.6 % (11.5-14.5) Immature Granulocyte % (Auto) 0.3 % Immature Granulocyte # (Auto) 0.02 K/uL (0.00-0.02) Prothrombin Time 10.3 SECONDS (9.0-12.0) Prothromb Time International Ratio 1.0 (0.9-1.1) Activated Partial Thromboplast Time 26.3 SECONDS (21.0-31.0) Partial Thromboplastin Ratio 1.0 Anion Gap 12.0 mmol/L (3-11) Est Creatinine Clear Calc Drug Dose 38.3 ml/min Estimated GFR () 48.1 Estimated GFR (Non- 41.5 BUN/Creatinine Ratio 15.4 (10-20) Calcium Level 9.5 mg/dl (8.5-10.1) Total Creatine Kinase 62 U/L (26-192) Creatine Kinase MB < 0.5 ng/ml (0.5-3.6) Creatine Kinase MB Ratio (0-3.0) Troponin I < 0.015 ng/ml (0-0.045) Hepatitis C Antibody Screen NEG (NEG) Laboratory results reviewed by me Medications Administered Medications (Trade) Dose Ordered Sig/Sushil Route Start Time Stop Time Status Last Admin Dose Admin Sodium Chloride 1,000 ml @ 50 mls/hr Q20H IV 04/26/17 17:21 04/26/17 21:16 DC 04/26/17 17:55 50 MLS/HR ECG Indication: weakness Rate (beats per minute): 69 Rhythm: sinus rhythm Findings: PVC, no acute ischemic change, no ectopy ED Course 1716: The patient was evaluated in room C9. A complete history and physical exam was performed. 1721: Sodium Chloride 1000 ml @ 50 mls/hr IV. 1840: I spoke to Dr Montoya of neurology. He recommends that the patient continue her current medications and be evaluated inpatient for an MRI and stroke workup. 1854: Discussed the patient's case with Dr. Cordoba of [facility]. The patient will be evaluated for further treatment and disposition. 1907: Upon reexamination, the patient was doing well. I discussed the test results and treatment plan with the patient. The patient will be evaluated for further management. Medical Decision Triage Nursing notes reviewed. The patient's presentation and history were concerning for stroke like symptoms which are much improved. Etiologies such as metabolic, infection, hypo/hyperglycemia, electrolyte abnormalities, cardiac sources, intracerebral event, toxicologic, neurologic, as well as others were entertained. The patient was evaluated. Her time of onset was roughly 2 hours prior to arrival. She notes improvement of symptoms. She was concerned as this felt similar to prior CVA events. Record review indicates patient had 2 CVAs in the end of last year. She is currently taking Plavix. The patient was quickly taken to CT for neuroimaging and this was normal. EKG and blood work were performed. The patient has a resolution of symptoms. Because of her minor symptoms, negative CT, and near resolution I do not believe TPA is appropriate at this time. I did consult with neurology, Dr. Fagan. She recommended maintaining the patient's current medications and having the patient admitted for additional neuroimaging and consultation. I consulted with the hospitalist. The patient was evaluated in the Emergency Room and admitted for further management. Medication Reconcilliation Current Medication List: was personally reviewed by me Blood Pressure Screening Patient's blood pressure: Normal blood pressure Blood pressure disposition: Did not require urgent referral Consults Time Called: 1830 Consulting Physician: Dr. Fagan - Neurology Returned Call: [address] Montoya of neurology. He recommends that the patient continue her current medications and be evaluated inpatient for an MRI and stroke workup. Additional Consults: Time Called: 1845 Consulted Physician: Dr. Cordoba - [facility] Returned Call: 1853 Additional Comments: Discussed the patient's case with Dr. Cordoba of [facility] [place]. The patient will be evaluated for further treatment and disposition. Impression Primary Impression: Stroke-like symptoms Scribe Attestation The scribe's documentation has been prepared under my direction and personally reviewed by me in its entirety. I confirm that the note above accurately reflects all work, treatment, procedures, and medical decision making performed by me. Departure Information Dispostion Being Evaluated By Hospitalist Referrals Tom Pineda M.D. (PCP) Patient Instructions My [facility]
[2017-04-27 06:09] LABS: BASO % 0.5 %; BASO ABS # 0.03 K/uL (0-0.2); COMPLETE YES; EOS % 1.5 %; HEMATOCRIT 33.6 % (37-47); IG% 0.2 %; LYMPH % 34.4 %; LYMPH ABS # 1.88 K/uL (1.2-3.4); MEAN CELL VOLUME 90.3 fL (80-100); MEAN CORPUSCULAR HEMOGLOBIN 30.9 pg (25-34); MEAN CORPUSCULAR HGB CONC 34.2 g/dl (32-36); MEAN PLATELET VOLUME 9.2 fL (7.4-10.4); MONO % 14.8 %; NEUT % 48.6 %; PLATELET COUNT 276 K/uL (130-400); RED BLOOD COUNT 3.72 M/uL (4.2-5.4); WHITE BLOOD COUNT 5.46 K/uL (4.8-10.8)
[2017-04-27 06:18] LABS: ESTIMATED AVERAGE GLUCOSE 128 mg/dl; HA1C FLAG Normal (Normal)
[2017-04-27 06:52] LABS: BUN/CREATININE RATIO 20.9 (10-20); CALCIUM 8.4 mg/dl (8.5-10.1); POTASSIUM 3.5 mmol/L (3.5-5.1)
--- NOTE | 2017-04-27 08:32 | Family Medicine Progress Note ---
Progress Note Date of Service Apr 27, 2017. Subjective Pt evaluation today including: conversation w/ patient, physical exam, chart review, lab review Pt resting comfortably in bed. Pt describes yesterday's stroke-like symptoms as being numbness going up her LT arm, and some numbness in her jaw b/l. Pt denies any weakness or facial droop. Pt has no complaints at this time. Constitutional: No fever, No chills Respiratory: No cough, No sputum, No shortness of breath Cardiovascular: No chest pain, No orthopnea, No edema Objective Physical Exam General Appearance: WD/WN, no apparent distress Eyes: normal inspection, PERRL, EOMI Respiratory/Chest: chest non-tender, lungs clear, normal breath sounds, no respiratory distress Cardiovascular: regular rate, rhythm, no edema, no JVD Abdomen: normal bowel sounds, non tender, soft Extremities: normal range of motion, non-tender, normal inspection Neurologic/Psychiatric: wax blender II-XII nml as tested, no motor/sensory deficits, alert, normal mood/affect, oriented x 3 Skin: normal color, warm/dry, no rash Assessment and Plan 72F with sig H stroke 2016, on Plavix for secondary prevention, admitted for stroke-like symptoms Potential CVA - facial droop, b/l arm and leg numbness - CT brain shows: No intra or extra-axial mass lesions are visualized. There is no CT evidence of acute cortical infarction. There is no evidence of midline shift. There is no acute hemorrhage. No calvarial fractures are visualized. There are patchy white matter hypodensities likely on a small vessel basis. There is an old deep white matter infarct within the right parietal lobe. There are old cerebellar lacunar infarcts. There is no evidence of pathologic ventricular dilatation. There is no evidence of acute sinusitis IMPRESSION: No acute intracranial findings - MRI Brain shows: 1. No acute intracranial findings 2. No evidence of acute or subacute infarction 3. No evidence of intracranial mass 4. Multiple old cerebellar lacunar infarcts. Old right periventricular deep white matter infarct. - Neuro consult, Dr Perez is aware - Previously had neck MRA so will hold off for now - Neuro checks - Telemetry monitoring - Screening for secondary risk factors - Monitor for aspiration HTN - Continue Lisinopril 20mg - Hold HCTZ for now Dyslipidemia - Continue Lipitor 40mg VTE: SCDs Code Status: Full Dispo: Tele. Resident Tracking Resident Involvement: Resident Care Provided Care Provided: Adult Hospital Medicine
[2017-04-27] MEDS: SODIUM CHLORIDE 0.9% 1000ML 1,000 ML IV SCH ×2 (08:36→17:00)
--- NOTE | 2017-04-27 08:38 | Medical Student: [facility] ---
Med Student History & Physical Date & Time of Service: Apr 27, 2017 at 08:30 Chief Complaint: Stroke-Like Symptoms Primary Care Physician: Tom Pineda M.D. History of Present Illness Source: patient, clinic records, hospital records 72 year old female with a past history of a stroke presents with a chief complaint of numbness and tingling in her right arm that spread to her left face and her left leg. She has a previous history of a stroke 8 months ago which she states also presented with similar symptoms to yesterday's incident. She states that the numbness feels like her leg has gone to sleep At baseline, she still has numbness and tingling in her left index finger as a residual finding from the stroke. It started yesterday while she was in the car, driving home. Initially she felt the symptoms in her left hand and by the time she had gotten home, the numbness and tingling had spread up her arms. Then slowly she noticed it spreading to her left face and her left leg. She tested herself in the mirror and was still able to smile, stick out her tongue and raise her eyebrows. She denies any muscle weakness or change in strength in these affected areas. She denies any speech changes, vision and hearing changes, fever , chills, nausea, vomiting, urinary incontinence, headaches, neck stiffness or loss of consciousness. She has been diligently taking Plavix since her last stroke in August. For the past 3 weeks, she has been feeling lightheaded and increased fatigue. She has been fighting a URI and has been feeling a decreased stamina. She also had a case of Shingles earlier in the summer in February. She admits that she has not been drinking very much water and sometimes also feels dehydrated. She saw her PCP recently who did a work up for her lightheadedness. They did an echo, CXR and EXG studies which all came back unremarkable. She also had a halter monitor for 29 days earlier in the year which showed some PVCs but nothing else. Past Medical/Surgical History Past Medical History (1) Left arm, leg, face paresthesias Status: Acute (2) History of CVA (cerebrovascular accident) Status: Acute (3) History of shingles Status: Acute (4) Fecal impaction Status: Resolved (5) Cholelithiasis Status: Resolved Past Surgical History: (1) Cholecystectomy August 2015 Family History Mother at the age of 97 from old age. She had an aortic valve replacement and pacemaker to help with arrhythmias. 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 She quit smoking 7 years ago but prior to that she was smoking about 1 pack per day for close to about 30 years. She drinks alcohol occasionally, about 2 glasses of wine or beers per week She denies any recreational drug use. Smoking Status: Former Smoker Smokeless Tobacco Use: No Alcohol Use: none Drug Use: none Marital Status: in relationship Housing status: lives alone Occupational Status: retired Immunizations History of Influenza Vaccine: Unknown History of Tetanus Vaccine?: Unknown History of Pneumococcal: Unknown History of Hepatitis B Vaccine: Unknown Allergies Coded Allergies: Acetaminophen (Unverified Adverse Reaction, Unknown, nausea, 04/26/17) Codeine (Verified Adverse Reaction, Unknown, UPSET STOMACH/NAUSEA, 04/26/17) Oxycodone (Unverified Adverse Reaction, Unknown, nausea, 04/26/17) Medications Acetaminophen (Tylenol), 1,000 MG PO DAILY PRN for Pain Ascorbic Acid (Vitamin C), 500 MG PO DAILY Atorvastatin (Lipitor), 40 MG PO DAILY Calcium Carbonate (Caltrate 600), 1 TAB PO QAM Clopidogrel (Plavix), 75 MG PO DAILY Hydrochlorothiazide (Hctz), 25 MG PO QAM Lisinopril (Zestril), 20 MG PO DAILY Multivitamin (Multivitamin), 1 TAB PO DAILY Pantoprazole (Pantoprazole Sodium), 40 MG PO DAILY Tocopheryl Acet,Dl-Alpha (Vitamin E/Dl-Alpha), 400 UNITS PO QAM Review of Systems Constitutional: + weight loss (She has lost about 5 lbs but atttributes this to her recent illness), No fever, No chills, No sweats Eyes: No worsening of vision ENT: No hearing loss Cardiovascular: No chest pain Abdomen: + diarrhea (Has had loose bowels since cholecystectomy), No nausea, No vomiting Neurologic: + numbness/tingling, No memory loss, No paralysis, No weakness Psychiatric: + problem reported (She states that she has been feeling more emotional lately ) Physical Exam Vital Signs (24 Hours) Date Time Temp Pulse Resp B/P (MAP) Pulse Ox O2 Delivery O2 Flow Rate FiO2 04/27/17 07:45 36.8 72 16 106/64 (78) 97 Room Air 04/27/17 04:00 36.9 70 20 95/59 (71) 98 Room Air 04/27/17 04:00 Room Air 04/27/17 00:17 36.9 80 20 100/52 (68) 94 Room Air 04/27/17 00:00 Room Air 04/26/17 21:08 Room Air 04/26/17 21:08 36.5 77 18 150/68 (95) 97 Room Air 04/26/17 21:08 36.5 75 18 150/68 (95) 97 Room Air 04/26/17 20:04 Room Air 04/26/17 20:01 72 20 113/65 97 Room Air 04/26/17 19:02 76 18 124/59 98 Room Air 04/26/17 17:55 73 20 123/51 100 Room Air 04/26/17 17:28 80 18 107/52 100 Room Air 04/26/17 17:28 100 Room Air 04/26/17 17:14 71 General Appearance: WD/WN, no apparent distress Head: normocephalic, atraumatic Eyes: PERRL, funduscopic exam normal Respiratory/Chest: lungs clear Cardiovascular: regular rate, rhythm 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 She was able to accurately answer all questions and follow commands. Cranial Nerves: CN I-not tested CN II-PERRL, funduscopic exam was unremarkable. Optic disc was observed without any blurry margins or hemorrhages CN III, IV, -extraocular movements intact CN V-facial sensation in the frontal, maxillary, and mandibular regions was intact. CN VII-patient was able to raise her eyebrows, puff her cheeks, and smile in a symmetrical manner. CN VIII-hearing was intact and equal on both sides CN IX, X-palate raised symmetrically when she says "ah" CN XI-raises shoulders against resistance and can turn head against resistance CN XII-tongue protrudes at midline. Can push tongue against resistance on both sides Motor: 5/5 R upper extremity including deltoids, biceps, triceps, extensor digitorum and flexor digitalis superficialis. 5/5 L upper extremity including deltoids, biceps, triceps, extensor digitorum and flexor digitalis superficialis. 5/5 R lower extremity including hip flexors, quadriceps, hamstrings, flexor digitorum longus and extensor digitorum longus. 5/5 L lower extremity including hip flexors, quadriceps, hamstrings, flexor digitorum longus and extensor digitorum longus Reflexes: Brachioradialis: 2+ bilaterally Biceps: 2+ bilaterally Triceps: 2+ bilaterally Patellar: 2+ bilaterally Achilles: 2+ bilaterally Cerebellar function: Heel to casas test and finger to nose testing was normal. No nystagmus was observed. Gait: gait was not tested as the patient was not ambulatory. Patient is right handed Diagnostics Laboratory Results Results Past 24 Hours Test 04/26/17 17:46 04/26/17 17:47 04/26/17 17:57 04/27/17 05:38 Range/Units Bedside Glucose 106 70-90 mg/dl Bedside Prothrombin Time INR 0.9 0.9-1.1 White Blood Count 6.71 5.46 4.8-10.8 K/uL Red Blood Count 4.01 3.72 4.2-5.4 M/uL Hemoglobin 12.7 11.5 12.0-16.0 g/dL Hematocrit 35.9 33.6 37-47 % Mean Corpuscular Volume 89.5 90.3 80-100 fL Mean Corpuscular Hemoglobin 31.7 30.9 25-34 pg Mean Corpuscular Hemoglobin Concent 35.4 34.2 32-36 g/dl Platelet Count 314 276 130-400 K/uL Mean Platelet Volume 9.2 9.2 7.4-10.4 fL Neutrophils (%) (Auto) 57.5 48.6 % Lymphocytes (%) (Auto) 28.9 34.4 % Monocytes (%) (Auto) 12.5 14.8 % Eosinophils (%) (Auto) 0.4 1.5 % Basophils (%) (Auto) 0.4 0.5 % Neutrophils # (Auto) 3.85 2.65 1.4-6.5 K/uL Lymphocytes # (Auto) 1.94 1.88 1.2-3.4 K/uL Monocytes # (Auto) 0.84 0.81 0.11-0.59 K/uL Eosinophils # (Auto) 0.03 0.08 0-0.5 K/uL Basophils # (Auto) 0.03 0.03 0-0.2 K/uL RDW Standard Deviation 41.1 42.7 36.4-46.3 fL RDW Coefficient of Variation 12.6 12.9 11.5-14.5 % Immature Granulocyte % (Auto) 0.3 0.2 % Immature Granulocyte # (Auto) 0.02 0.01 0.00-0.02 K/uL Prothrombin Time 10.3 9.0-12.0 SECONDS Prothromb Time International Ratio 1.0 0.9-1.1 Activated Partial Thromboplast Time 26.3 21.0-31.0 SECONDS Partial Thromboplastin Ratio 1.0 Sodium Level 134 137 136-145 mmol/L Potassium Level 4.3 3.5 3.5-5.1 mmol/L Chloride Level 98 102 98-107 mmol/L Carbon Dioxide Level 24 26 21-32 mmol/L Anion Gap 12.0 9.0 3-11 mmol/L Blood Urea Nitrogen 20 21 7-18 mg/dl Creatinine 1.30 1.00 0.60-1.20 mg/dl Est Creatinine Clear Calc Drug Dose 38.3 50.0 ml/min Estimated GFR () 48.1 66.1 Estimated GFR (Non- 41.5 57.0 BUN/Creatinine Ratio 15.4 20.9 10-20 Random Glucose 102 104 70-99 mg/dl Estimated Average Glucose 128 mg/dl Hemoglobin A1c 6.1 4.5-5.6 % Calcium Level 9.5 8.4 8.5-10.1 mg/dl Total Creatine Kinase 62 26-192 U/L Creatine Kinase MB < 0.5 0.5-3.6 ng/ml Creatine Kinase MB Ratio 0-3.0 Troponin I < 0.015 0-0.045 ng/ml Hepatitis C Antibody Screen NEG NEG Triglycerides Level 49 0-150 mg/dl Cholesterol Level 112 0-200 mg/dl HDL Cholesterol 55 mg/dl LDL Cholesterol, Calculated 47 mg/dl VLDL Cholesterol, Calculated 10 mg/dl Cholesterol/HDL Ratio 2.0 Test 04/27/17 07:32 Range/Units Bedside Glucose 104 70-90 mg/dl Diagnostic Radiology MRI of the brain: shows old periventricular infarct but no new lesions CT Scan of the head: unremarkable CXR normal Impression Assessment and Plan Assessment: Paresthesias of the left side 72 year old female presents with paresthesias in the left side of her body, including arms, legs and face. She did not feel that there was any motor weakness at any point during the episode. Currently her strength was at her baseline. The patient also states that she has been ill for the past 3 weeks and may have been dehydrated. Furthermore, she recently had an episode of Shingles. While these signs could be a concern for a stroke or TIA, the fact that they are in the exact same distribution of her previous stroke also raises suspicion for a reoccurrence of symptoms due to underlying stress on her body from her recent illnesses. Additionally, MRI of the brain showed no acute lesions of the brain since her stroke in August. Other etiologies that were considered include: Multiple Sclerosis-the MRI of her brain came back without any white matter, demyelinating lesions. Furthermore, other than the original stroke, she has not had any other neurological episodes. Stroke reoccurrence or TIA-there were no acute lesions on the MRI. Work up to look for cardiac cause of stroke came back negative. There was no evidence of any atrial fibrillation. Seizure-An EEG was done post stroke and did not show any evidence of epileptiform changes. Lightheadedness She has been complaining of lightheadedness and decreased stamina for the last couple weeks. She admits that she has not been hydrating well. Additionally, she has been working with her PCP to evaluate for causes of her stroke. Thus far , EKG, Echo, and CXR have all come back negative. It is unlikely that her lightheadedness is related to her stroke-like symptoms. It is possible that her recent sickness and lack of appropriate hydration could be contributing to symptoms. Consider other etiologies such as: medication side effect, orthostatic hypotension, or dehydration. Plan: 1. Order lyme titers (patient states this was supposed to be done today from PCP ) 2. Follow up if she experiences any facial droop, slurred speech, or muscle weakness in addition to paresthesias. 3. Encourage proper hydration and follow up with PCP if lightheadedness continues Neurology attending addendum: Patient was seen and evaluated with medical student. Please see my separate neurology consult note for full evaluation and recommendations. -Jennifer Perez, DO Advanced Directives Existing Advance Directive: No Existing Living Will: Yes Existing Power of Etl Developer: Yes
[2017-04-27] MEDS ORDERED: ATORVASTATIN 40 MG TAB PO SCH (09:00)
[2017-04-27] MEDS ORDERED: PANTOprazole SOD 40 MG TAB PO SCH (09:00)
[2017-04-27] MEDS ORDERED: LISINOPRIL 20 MG TAB PO SCH (09:00)
[2017-04-27] MEDS ORDERED: CLOPIDOGREL BISULFATE 75 MG TAB PO SCH (09:00)
--- NOTE | 2017-04-27 10:13 | Neurology Consultation ---
Neurology Consultation Date of Consultation: Apr 27, 2017. Attending Physician: Sean Levy D.O. Primary Care Physician: Tom Pineda M.D. Reason for Consultation: Strokelike symptoms History of Present Illness Source: patient, clinic records, hospital records This is an 72-year-old right-handed female who presents for recurrence of previous strokelike symptoms. Patient was initially evaluated for an ischemic periventricular stroke in early August 2016 with evidence of previous cerebellar stroke. Patient was seen back in August couple weeks later due to recurrence of symptoms with evolution of her stroke but no new strokes. Patient presents today due to increased numbness and tingling on the left side. She reports that her left index finger is always numb and tingly but yesterday it started to spread upper arm and into her face and then down her left lower extremity. She had a sense of leg weakness at that time as well. She does admit that if she is ever tired or fatigued she does seem to have more numbness and tingling in the left upper extremity. Patient reports that she hasn't been feeling well for the past 3 weeks. May have had an upper respiratory infection type symptoms. She's also been feeling lightheaded and dizzy. She doesn't that she has a hard time keeping adequately hydrated. She has been following up with her primary care doctor regarding symptoms of lightheadedness. She also reports having an episode of shingles in February which has resolved. She denies any totally new numbness or weakness compared to her previous stroke symptoms. No loss of vision. No changes in speech. No changes in walking or gait. No chest pain or shortness of breath. No change in level of consciousness or confusion. No associated headaches. Patient did get a 29 day as that monitor done earlier this year which noted PVCs but no A. fib or other arrhythmias. Patient also had a stress echo on the eighth. Was noted to have some diastolic dysfunction and PVCs but otherwise unremarkable. EEG done in August was also unremarkable with no signs of epileptiform discharges. Past Medical/Surgical History Medical Problems: (1) Cholelithiasis Status: Acute (2) Constipation Status: Acute (3) CVA (cerebral vascular accident) Status: Acute (4) Fecal impaction Status: Acute (5) History of CVA (cerebrovascular accident) Status: Acute (6) History of shingles Status: Acute (7) Left arm weakness Status: Acute Hypertension Family History Family history for diabetes and hypertension Social History The patient is normally independent in her activities of daily living. Of format tobacco use. No current tobacco use. Walks unassisted. Smokeless Tobacco Use: No Alcohol Use: none Drug Use: none Marital Status: in relationship Housing Status: lives with family Occupation Status: retired Allergies Coded Allergies: Acetaminophen (Unverified Adverse Reaction, Unknown, nausea, 04/26/17) Codeine (Verified Adverse Reaction, Unknown, UPSET STOMACH/NAUSEA, 04/26/17) Oxycodone (Unverified Adverse Reaction, Unknown, nausea, 04/26/17) Current Inpatient Medications Current Inpatient Medications Medications (Trade) Dose Ordered Sig/Sushil Route Start Time Stop Time Status Last Admin Dose Admin Miscellaneous Information (Pharmacist Discharge Med Rec Consult) 1 ea UD PRN N/A 04/26/17 19:45 05/26/17 19:44 Sodium Chloride 1,000 ml @ 100 mls/hr Q10H IV 04/26/17 21:00 04/28/17 02:59 04/27/17 08:36 100 MLS/HR Al Hydrox/Mg Hydrox/Simethicone (Maalox Max Susp) 15 ml Q4H PRN PO 04/26/17 19:45 05/26/17 19:44 Magnesium Hydroxide (Milk Of Magnesia Susp) 30 ml Q12H PRN PO 04/26/17 19:45 05/26/17 19:44 Ondansetron HCl (Zofran Inj) 4 mg Q6H PRN IV 04/26/17 19:45 05/26/17 19:44 Atorvastatin Calcium (Lipitor Tab) 40 mg DAILY PO 04/27/17 09:00 05/27/17 08:59 04/27/17 08:36 40 MG Clopidogrel Bisulfate (plAVix TAB) 75 mg DAILY PO 04/27/17 09:00 05/27/17 08:59 04/27/17 08:35 75 MG Lisinopril (Zestril Tab) 20 mg DAILY PO 04/27/17 09:00 05/27/17 08:59 04/27/17 08:36 20 MG Pantoprazole Sodium (Protonix Tab) 40 mg DAILY PO 04/27/17 09:00 05/27/17 08:59 04/27/17 08:36 40 MG Review of Systems Except for the above noted, complete review of systems otherwise negative. Physical Exam Vital Signs (Past 24 Hrs): Date Time Temp Pulse Resp B/P (MAP) Pulse Ox O2 Delivery O2 Flow Rate FiO2 04/27/17 07:45 36.8 72 16 106/64 (78) 97 Room Air 04/27/17 04:00 36.9 70 20 95/59 (71) 98 Room Air 04/27/17 04:00 Room Air 04/27/17 00:17 36.9 80 20 100/52 (68) 94 Room Air 04/27/17 00:00 Room Air 04/26/17 21:08 Room Air 04/26/17 21:08 36.5 77 18 150/68 (95) 97 Room Air 04/26/17 21:08 36.5 75 18 150/68 (95) 97 Room Air 04/26/17 20:04 Room Air 04/26/17 20:01 72 20 113/65 97 Room Air 04/26/17 19:02 76 18 124/59 98 Room Air 04/26/17 17:55 73 20 123/51 100 Room Air 04/26/17 17:28 80 18 107/52 100 Room Air 04/26/17 17:28 100 Room Air 04/26/17 17:14 71 Gen.: Patient is alert and sitting in bed, in no acute distress. HEENT: Normocephalic /atraumatic, no scleral icterus Heart: Regular rate and rhythm Extremities: No gross deformities or rashes noted Neurological examination: Mental status: Patient is alert and oriented x3. Attention and concentration normal for the situation. Good fund of knowledge. Able to give her own history. Speech is fluent without any dysarthria or aphasia noted Cranial nerve: Visual culver intact. Funduscopic examination was unremarkable. No papilledema. Pupils equally round and reactive to light. Extraocular muscles intact without nystagmus. No facial asymmetry noted. Facial sensation intact. Tongue is midline. Good palatal elevation. Good shoulder shrug bilaterally. Strength: 5/5 both proximal and distally in all extremities. There is no arm drift. Tone is normal. Sensation: Grossly intact to light touch in all extremities. Deep tendon reflexes: +2 in bilateral biceps, brachioradialis and patellar. Coordination: Patient had good finger to nose without dysmetria Station within the bed was normal Laboratory Results Past 24 Hours: 04/27/17 05:38 Red Blood Count 3.72, Mean Corpuscular Volume 90.3, Mean Corpuscular Hemoglobin 30.9, Mean Corpuscular Hemoglobin Concent 34.2, Mean Platelet Volume 9.2, Neutrophils (%) (Auto) 48.6, Lymphocytes (%) (Auto) 34.4, Monocytes (%) (Auto) 14.8, Eosinophils (%) (Auto) 1.5, Basophils (%) (Auto) 0.5, Neutrophils # (Auto ) 2.65, Lymphocytes # (Auto) 1.88, Monocytes # (Auto) 0.81, Eosinophils # (Auto ) 0.08, Basophils # (Auto) 0.03 04/27/17 05:38 Test 04/26/17 17:47 04/26/17 17:57 04/27/17 05:38 04/27/17 07:32 Bedside Prothrombin Time INR 0.9 (0.9-1.1) Prothrombin Time 10.3 SECONDS (9.0-12.0) Prothromb Time International Ratio 1.0 (0.9-1.1) Activated Partial Thromboplast Time 26.3 SECONDS (21.0-31.0) Partial Thromboplastin Ratio 1.0 Estimated Average Glucose 128 mg/dl Hemoglobin A1c 6.1 % (4.5-5.6) Total Creatine Kinase 62 U/L (26-192) Creatine Kinase MB < 0.5 ng/ml (0.5-3.6) Creatine Kinase MB Ratio (0-3.0) Troponin I < 0.015 ng/ml (0-0.045) Hepatitis C Antibody Screen NEG (NEG) White Blood Count 5.46 K/uL (4.8-10.8) Red Blood Count 3.72 M/uL (4.2-5.4) Hemoglobin 11.5 g/dL (12.0-16.0) Hematocrit 33.6 % (37-47) Mean Corpuscular Volume 90.3 fL (80-100) Mean Corpuscular Hemoglobin 30.9 pg (25-34) Mean Corpuscular Hemoglobin Concent 34.2 g/dl (32-36) Platelet Count 276 K/uL (130-400) Mean Platelet Volume 9.2 fL (7.4-10.4) Neutrophils (%) (Auto) 48.6 % Lymphocytes (%) (Auto) 34.4 % Monocytes (%) (Auto) 14.8 % Eosinophils (%) (Auto) 1.5 % Basophils (%) (Auto) 0.5 % Neutrophils # (Auto) 2.65 K/uL (1.4-6.5) Lymphocytes # (Auto) 1.88 K/uL (1.2-3.4) Monocytes # (Auto) 0.81 K/uL (0.11-0.59) Eosinophils # (Auto) 0.08 K/uL (0-0.5) Basophils # (Auto) 0.03 K/uL (0-0.2) RDW Standard Deviation 42.7 fL (36.4-46.3) RDW Coefficient of Variation 12.9 % (11.5-14.5) Immature Granulocyte % (Auto) 0.2 % Immature Granulocyte # (Auto) 0.01 K/uL (0.00-0.02) Anion Gap 9.0 mmol/L (3-11) Est Creatinine Clear Calc Drug Dose 50.0 ml/min Estimated GFR () 66.1 Estimated GFR (Non- 57.0 BUN/Creatinine Ratio 20.9 (10-20) Calcium Level 8.4 mg/dl (8.5-10.1) Triglycerides Level 49 mg/dl (0-150) Cholesterol Level 112 mg/dl (0-200) HDL Cholesterol 55 mg/dl LDL Cholesterol, Calculated 47 mg/dl VLDL Cholesterol, Calculated 10 mg/dl Cholesterol/HDL Ratio 2.0 Bedside Glucose 104 mg/dl (70-90) Imaging MRI of the brain reported images were reviewed by myself and unremarkable. There is no acute strokes. Previous strokes noted. Impression This is a 72-year-old female who presents with recurrence of her previous stroke symptoms in the setting of recent three-week likely viral illness. In addition has also been having symptoms of lightheadedness and may be a component of dehydration. Does not appear to have a new stroke. Plan Discussed diagnosis with the patient and that I do not think that she had a new stroke or TIA. Discussed hydration. May follow with primary care physician if continues to feel lightheaded. Continue with current medications. No recommended changes. Patient reports that she was supposed to get a Lyme screen done today for a primary care physician regarding workup of her current symptoms. I have added this onto her morning labs. Think you for allowing me to participate in this patient's care. If there is any questions or concerns, feel free to call/page me.
[2017-04-27 12:37] LABS: LYME DISEASE AB IGG NEG (NEG); LYME DISEASE AB IGM NEG (NEG)
--- NOTE | 2017-04-27 13:59 | Clinical Documentation Query ---
CLINICAL DOCUMENTATION QUERY Dr. SCOTT, In your clinical opinion is this patient being managed for: ( ) mild Acute kidney injury in the setting of dehydration possibly causing presenting symptoms ( ) Other explanation of clinical findings (Please Explain) ( ) Unable to determine (Please Define) ( ) Need to Discuss ( ) Not Agree The medical record reflects the following clinical findings, treatment, and risk factors. Clinical Indicators:72 yo female presenting with lightheadedness and worsening L hand/L face weakness. Cr 1.30 with BUN 20. Cr has improved over the past 12 hrs, now Cr 1.0. Review of baseline Cr shows range of 0.70-0.96 over the past 8 months. Treatment: IV fluids, serial PRP's Risk Factors: age, HTN, Hx CVA Please clarify and document your clinical opinion in the progress notes and discharge summary. Terms such as "probable", "suspected", "likely", "questionable", "possible", or "still to be ruled out" are acceptable. IF IN AGREEMENT, YOU MUST DOCUMENT ABOVE DIAGNOSTIC STATEMENT IN DAILY PROGRESS NOTES AND DISCHARGE SUMMARY. This document is not part of the patient's record. Thank You, Chelsea Brock, RN [phone]
--- NOTE | 2017-04-27 14:00 | Clinical Documentation Query ---
CLINICAL DOCUMENTATION QUERY Dr. WILEY, In your clinical opinion is this patient being managed for: ( ) mild Acute kidney injury in the setting of dehydration possibly causing presenting symptoms ( ) Other explanation of clinical findings (Please Explain) ( ) Unable to determine (Please Define) ( ) Need to Discuss ( x ) Not Agree The medical record reflects the following clinical findings, treatment, and risk factors. Clinical Indicators:72 yo female presenting with lightheadedness and worsening L hand/L face weakness. Cr 1.30 with BUN 20. Cr has improved over the past 12 hrs, now Cr 1.0. Review of baseline Cr shows range of 0.70-0.96 over the past 8 months. Treatment: IV fluids, serial PRP's Risk Factors: age, HTN, Hx CVA Please clarify and document your clinical opinion in the progress notes and discharge summary. Terms such as "probable", "suspected", "likely", "questionable", "possible", or "still to be ruled out" are acceptable. IF IN AGREEMENT, YOU MUST DOCUMENT ABOVE DIAGNOSTIC STATEMENT IN DAILY PROGRESS NOTES AND DISCHARGE SUMMARY. This document is not part of the patient's record. Thank You, Chelsea Brock, RN [phone]
--- NOTE | 2017-04-27 17:21 | Discharge Instructions ---
Discharge Instructions Date of Service Apr 27, 2017. Admission Reason for Admission: Stroke-Like Symptoms Discharge Discharge Diagnosis / Problem: Stroke-like symptoms Discharge Goals Goal(s): Decrease discomfort, Diagnostic testing, Screening Activity Recommendations Activity Limitations: as noted below Lifting Limitations: gradually increase as tolerated Exercise/Sports Limitations: gradually increase as tolerated May Resume Sexual Activity: when tolerated Shower/Bathe: no limitations Driving or Machine Use: no limitations . Instructions / Follow-Up Instructions / Follow-Up You were admitted for stroke-like symptoms. With a CT scan, we found no new evidence of a stroke. We think your symptoms may have been due to a combination of improper hydration and your hypertension medications. We recommend that you stop taking the Hydrochlorathiazide for now. Take daily blood pressure readings and write them down. Bring these recorded readings with you to your next appointment with your PCP. We also recommend that you properly hydrate yourself, preferably with clear liquid or caffeine free liquid. Water is the best. Try to drink at least 1 liter a day, up to 2 liters if possible. We recommend you discuss this and your medications with your primary care physician at your next appointment in 1-2 weeks. Current Hospital Diet Patient's current hospital diet: AHA Diet (Heart Healthy) Discharge Diet Recommended Diet: AHA Diet (Heart Healthy) Procedures Procedures Performed: CT scan of brain Pending Studies Studies pending at discharge: no Laboratory Results Hemoglobin A1c Test 04/26/17 17:57 Range/Units Estimated Average Glucose 128 mg/dl Hemoglobin A1c 6.1 H 4.5-5.6 % Lipid Panel Test 04/27/17 05:38 Range/Units Triglycerides Level 49 0-150 mg/dl Cholesterol Level 112 0-200 mg/dl HDL Cholesterol 55 mg/dl Cholesterol/HDL Ratio 2.0 LDL Cholesterol, Calculated 47 mg/dl Medical Emergencies . Who to Call and When: Medical Emergencies: If at any time you feel your situation is an emergency, please call 911 immediately. . Non-Emergent Contact Non-Emergency issues call your: Primary Care Provider . Past History Medical & Surgical History: (1) Stroke . "Provider Documentation" section prepared by Jennifer Cheung. . VTE Core Measure Inpt VTE Proph given/why not?: SCD's
--- NOTE | 2017-04-27 17:24 | Discharge Summary ---
Discharge Summary Date of Service Apr 27, 2017. (Jennifer Cheung M.D.) Discharge Summary Admission Date: Apr 26, 2017 at 19:49 Discharge Date: Apr 27, 2017 Discharge Disposition: Home Principal Diagnosis: Stroke like symptoms Immunizations: Have You Had Influenza Vaccine: Unknown History of Tetanus Vaccine?: Unknown History of Pneumococcal: Unknown History of Hepatitis B Vaccine: Unknown (Jennifer Cheung M.D.) Medication Reconciliation Continued Medications: Acetaminophen (Tylenol) 500 Mg Tab 1000 MG PO DAILY PRN for Pain, TAB Ascorbic Acid (Vitamin C) 500 Mg Tab 500 MG PO DAILY Atorvastatin (Lipitor) 40 Mg Tab 40 MG PO DAILY, TAB Calcium Carbonate (Caltrate 600) 1,500 Mg Tab 1 TAB PO QAM Clopidogrel (Plavix) 75 Mg Tab 75 MG PO DAILY, TAB Lisinopril (Zestril) 20 Mg Tab 20 MG PO DAILY, TAB Multivitamin (Multivitamin) Tab 1 TAB PO DAILY, TAB Pantoprazole (Pantoprazole Sodium) 40 Mg Tab 40 MG PO DAILY Tocopheryl Acet,Dl-Alpha (Vitamin E/Dl-Alpha) 400 Unit Cap 400 UNITS PO QAM Discontinued Medications: Hydrochlorothiazide (Hctz) 25 Mg Tab 25 MG PO QAM, TAB Hospital Course 72F with sig PMH stroke 2016, on Plavix for secondary prevention, admitted for stroke-like symptoms Potential CVA - Pt reports numbness and tingling on LT arm, associated with numbness in her jaw and RT arm. - CT brain shows: No acute intracranial findings - No intra or extra-axial mass lesions visualized. - No evidence of acute cortical infarction, no midline shift, no acute hemorrhage. No calvarial fractures are visualized. - There are patchy white matter hypodensities likely on a small vessel basis. There is an old deep white matter infarct within the right parietal lobe. - There are old cerebellar lacunar infarcts. - There is no evidence of pathologic ventricular dilatation. There is no evidence of acute sinusitis. - MRI Brain shows: No acute intracranial findings - No evidence of acute or subacute infarction - No evidence of intracranial mass. Multiple old cerebellar lacunar infarcts. Old right periventricular deep white matter infarct. - Neuro consult, Dr Perez: - Telemetry monitored - Screening for secondary risk factors - Monitored for aspiration HTN - Continue Lisinopril 20mg - Held HCTZ during admission - Suspect pt's complaints of dizziness may be due to orthostasis and lack of proper hydration. - Educated pt on proper hydration 60 ozs water per day, and to discuss her hypertension medicine with her PCP at next appointment. Dyslipidemia - Continue Lipitor 40mg VTE: SCDs Code Status: Full Total Time Spent: Greater than 30 minutes This includes examination of the patient, discharge planning, medication reconciliation, and communication with other providers. (Jennifer Cheung M.D.) Resident Physician Supervision Note: I interviewed and examined the patient. Discussed with Dr. Cheung and agree with findings and plan as documented in the note. Any exceptions or clarifications are listed here: None Documented By: Sean Levy feeling better wants to go home, agree entirely w neuro assessment and plan and input appreciated vitals noted nad breathing unlabored no pallor or icterus no focal neuro deficits stroke like sx - likely dehydration/BP med side effects and some unmasking of prior stroke -no new lesions -hold HCTZ for now, encouraged to follow BP 5-6x/wk randomly and review w PCP next week -hydration -stable for home (Sean Levy, D.O.) Discharge Instructions Please refer to the electronic Patient Visit Report (Discharge Instructions) for additional information. (Jennifer Cheung M.D.) Additional Copies To Tom Pineda M.D. Resident Tracking Resident Involvement: Resident Care Provided Care Provided: Adult Hospital Medicine (Jennifer Cheung M.D.)
== END 2017-04-27 18:05 | disposition home or self-care (01) | DRG 640 ==
LOC: EDBD 17:00 → C.EDC 17:03 → C.MED 19:49 → ENRESERV 20:01
PROVIDERS: ADMIT Hospitalist; ATTEND Family Medicine
DX: E86.0 Dehydration (principal); T50.2X5A Adverse effect of carbonic-anhydrase inhibitors, benzothiadiazides and other diuretics, initial encounter; T46.4X5A Adverse effect of angiotensin-converting-enzyme inhibitors, initial encounter; R20.0 Anesthesia of skin; R29.810 Facial weakness; R53.1 Weakness; I95.1 Orthostatic hypotension; I11.9 Hypertensive heart disease without heart failure; E78.5 Hyperlipidemia, unspecified; Z23 Encounter for immunization; Z87.891 Personal history of nicotine dependence; Z79.02 Long term (current) use of antithrombotics/antiplatelets; Z79.899 Other long term (current) drug therapy; I63.9 Cerebral infarction, unspecified; M62.81 Muscle weakness (generalized)

== ENCOUNTER → 2017-09-25 | Outpatient (CLI) | payer OTHER, MEDICARE ==
[~2017-09-25] MED LIST changes: +ACET-1256 PO; -DOCU-94 PO; -HYDR-5688 PO; -HYDR25TA4 PO; +PANT40TA2 PO; -PRT/40 PO
[2017-09-25 18:24] LABS: BASO % 0.4 %; BASO ABS # 0.02 K/uL (0-0.2); EOS % 0.6 %; EOS ABS # 0.03 K/uL (0-0.5); HEMATOCRIT 40.8 % (37-47); HEMOGLOBIN 13.6 g/dL (12.0-16.0); IG# 0.01 K/uL (0.00-0.02); LYMPH % 33.8 %; LYMPH ABS # 1.77 K/uL (1.2-3.4); MEAN CELL VOLUME 91.5 fL (80-100); MEAN CORPUSCULAR HEMOGLOBIN 30.5 pg (25-34); MEAN CORPUSCULAR HGB CONC 33.3 g/dl (32-36); MEAN PLATELET VOLUME 9.7 fL (7.4-10.4); MONO % 9.2 %; MONO ABS # 0.48 K/uL (0.11-0.59); NEUT % 55.8 %; NEUT ABS # 2.92 K/uL (1.4-6.5); PLATELET COUNT 252 K/uL (130-400); RED CELL DISTRIBUTION WIDTH CV 14.3 % (11.5-14.5); RED CELL DISTRIBUTION WIDTH SD 47.5 fL (36.4-46.3); WHITE BLOOD COUNT 5.23 K/uL (4.8-10.8)
[2017-09-25 18:26] LABS: ALBUMIN 3.8 gm/dl (3.4-5.0); ALT/SGPT 21 U/L (12-78); BLOOD UREA NITROGEN 19 mg/dl (7-18); CARBON DIOXIDE 28 mmol/L (21-32); CHOLESTEROL 167 mg/dl (0-200); CREATININE 0.94 mg/dl (0.60-1.20); GLUCOSE 145 mg/dl (70-99); POTASSIUM 3.7 mmol/L (3.5-5.1); SODIUM 138 mmol/L (136-145)
[2017-09-25 18:29] LABS: ALKALINE PHOSPHATASE 69 U/L (45-117); AST/SGOT 12 U/L (15-37); LDL CHOLESTEROL CALCULATED 56 mg/dl; TOTAL PROTEIN 7.8 gm/dl (6.4-8.2)
[2017-09-25 18:38] LABS: HEMOGLOBIN A1C 6.3 % (4.5-5.6)
== END | disposition home or self-care (01) ==
LOC: C.LABBFT 15:11
PROVIDERS: ATTEND Internal Medicine
DX: R53.83 Other fatigue (principal); E78.5 Hyperlipidemia, unspecified; I63.9 Cerebral infarction, unspecified; R73.01 Impaired fasting glucose

== ENCOUNTER → 2017-10-03 | Outpatient (CLI) | payer OTHER, MEDICARE ==
--- NOTE | 2017-10-03 14:30 | MAMMOGRAPHY REPORT ---
BILATERAL DIGITAL SCREENING MAMMOGRAM TOMOSYNTHESIS WITH CAD: 10/03/2017 CLINICAL HISTORY: Routine screening. Patient has no complaints. TECHNIQUE: Breast tomosynthesis in addition to standard 2D mammography was performed. Current study was also evaluated with a Computer Aided Detection (CAD) system. COMPARISON: Comparison is made to exams dated: 10/01/2014 mammogram, 07/31/2013 mammogram, 07/06/2012 mammogram, 07/05/2011 mammogram, 06/28/2010 mammogram - [facility], and 07/03/2008 . BREAST COMPOSITION: There are scattered areas of fibroglandular density in both breasts. FINDINGS: There are stable focal asymmetries in the central right breast, lower inner left breast and upper outer middle to posterior left breast. No new suspicious mass, architectural distortion or cl uster of microcalcifications is seen. IMPRESSION: ACR BI-RADS CATEGORY 1: NEGATIVE There is no mammographic evidence of malignancy. A 1 year screening mammogram is recommended. The pa tient will receive written notification of the results. Approximately 10% of breast cancers are not detected with mammography. A negative mammographic report should not delay biopsy if a clinically suggestive mass is present. Stefany Linton M.D. ay/:10/03/2017 13:33:47 Councilman: Sophia Crow, [facility] letter sent: Normal 1/2 BI-RADS Code: ACR BI-RADS Category 1: Negative
== END | disposition home or self-care (01) ==
LOC: C.MAMM 11:32
PROVIDERS: ATTEND Internal Medicine
DX: Z12.31 Encounter for screening mammogram for malignant neoplasm of breast (principal)

== ENCOUNTER → 2018-04-06 | Outpatient (CLI) | payer OTHER, MEDICARE ==
--- NOTE | 2018-04-06 13:35 | DIAGNOSTIC IMAGING REPORT ---
CT LUNG SCREENING CHEST, LOW DOSE WITH COMPUTER-AIDED DETECTION (CAD) CLINICAL HISTORY: 73 years-old Female presenting with HX OF SMOKING. CT DOSE (mGy.cm): The estimated cumulative dose is unavailable. TECHNIQUE: Multidetector CT imaging of the chest was performed without the use of intravenous contrast. IV contrast: None. A dose lowering technique was used consistent with the principles of ALARA (as low as reasonably achievable). Additional postprocessing was performed on a separate [email or web address] workstation by the radiologist for computer-aided detection and 3-D volumetric segmentation of pulmonary nodules. COMPARISON: Chest x-ray from 04/26/2017. FINDINGS: Leather Tooler topogram: Cholecystectomy clips noted. On soft tissue windows, normal thyroid and thoracic inlet. No axillary, supraclavicular, or mediastinal lymphadenopathy. Evaluation of the rené limited without intravenous contrast. Atherosclerosis of the aorta. Mild multichamber enlargement of the heart. Coronary artery, aortic valve, and mitral annular calcification. No pericardial or pleural effusion. Upper abdomen normal. On lung windows, minimal dependent changes likely atelectasis. Punctate high density nodule in the left lower lobe (series 4 image 142), likely calcified granuloma rather than a solid nodule. No other focal nodule or infiltrate. Airways patent. On bone windows, degenerative changes of the spine. CAD FINDINGS: Overall Lung RADS Category: 1 Lung RADS Management Recommendation: Continue annual lung cancer screening. Lung RADS Follow Up Date: 2019-04-06 Lung RADS Nodule ID: IMPRESSION: 1. No suspicious pulmonary nodule. Continue annual lung cancer screening. Electronically signed by: Jonathan Diaz M.D. 04/06/2018 1:34 PM Dictated Date/Time: 04/06/2018 1:26 PM
== END | disposition home or self-care (01) ==
LOC: C.CTS 12:52
PROVIDERS: ATTEND Internal Medicine
DX: Z87.891 Personal history of nicotine dependence (principal); Z12.2 Encounter for screening for malignant neoplasm of respiratory organs

== ENCOUNTER 2024-03-18 12:21 | Observation (INO) ==
--- NOTE | 2024-03-18 12:47 | ED Triage Note ---
Date of Service March 18, 2024 Provider in Triage Author: Oscar Zhao History of Present Illness This patient was briefly evaluated while in triage. An abbreviated physical exam was performed. This patient is a 78-year-old Female who presents to the ED for evaluation Hx of HTN, lipids, CVA on Plavix, GERD fatigue/weak x 1.5 weeks, "I'm just so tired." mild headache called for an MD appointment this morning, they suggested she check her BP, and it was elevated(200/100) no CP or SOB Physical Exam GENERAL: NAD CARDIOVASCULAR: RRR RESPIRATORY: CTA ABDOMEN: BS x 4. Nontender to palpation. Initial orders for labs and / or imaging were placed and patient was placed in the waiting area until a bed is available. Please see further documentation for the full ED course.
--- NOTE | 2024-03-18 13:49 | XRay Report ---
XR chest 1V not portable CLINICAL HISTORY: hypertension TECHNIQUE: Single frontal radiograph of the chest was obtained. Comparison: Comparison is made to chest radiograph 05/26/2022 FINDINGS: No lines and tubes are seen. Calcified aortic knob is seen. The lungs are clear. No evidence of pleur al effusion or pneumothorax. IMPRESSION: No acute chest disease. ACT 112: Negative or not required by law. Electronically signed by: Han Loomis M.D. 03/18/2024 1:47 PM
[2024-03-18 14:04] LABS: Basophils # (auto) 0.04 K/uL (0.00-0.20); Basophils % (auto) 0.8 %; Eosinophils # (auto) 0.13 K/uL (0.00-0.50); Eosinophils % (auto) 2.6 %; Hematocrit (blood only) 40.4 % (37.0-47.0); Hemoglobin 13.7 g/dl (12.0-16.0); Immature Granulocytes # (auto) 0.01 K/uL (0.01-0.20); Immature Granulocytes % (auto) 0.2 %; Lymphocytes % (auto) 30.5 %; Mean Corpuscular Hemoglobin 30.6 pg (25.0-34.0); Mean Corpuscular Hgb Conc 33.9 g/dL (32.0-36.0); Mean Corpuscular Volume 90.4 fL (80.0-100.0); Mean Platelet Volume 9.8 fL (9.4-12.4); Monocytes # (auto) 0.43 K/uL (0.11-0.59); Monocytes % (auto) 8.7 %; Neutrophils # (auto) 2.81 K/uL (1.40-6.50); Neutrophils % (auto) 57.2 %; Platelet Count 231 K/uL (130-400); RDW Coefficient of Variation 12.7 % (11.5-14.5); RDW Standard Deviation 41.7 fL (36.4-46.3); Red Blood Count 4.47 M/uL (4.20-5.40); White Blood Count 4.92 K/ul (4.8-10.8)
[2024-03-18 14:22] LABS: Albumin Globulin Ratio 1.3 (0.9-2); Albumin Level 4.3 gm/dl (3.4-5.0); BUN Creatinine Ratio 13.7 (10-20); Bilirubin,Total 0.7 mg/dl (0.2-1.0); Calcium 9.4 mg/dl (8.6-10.3); Creatinine Clr Calc Pharmacy 62.7 ml/min; Est GFR (African American) 92.7 ml/min; Globulin 3.2 gm/dl (2.5-4.0); Potassium 3.8 mmol/L (3.5-5.1); Total Protein 7.5 gm/dl (6.0-8.3)
[2024-03-18 14:27] LABS: Troponin I High Sensitivity 15.5 pg/ml (0-14)
[2024-03-18 14:37] LABS: Polychromasia 1+
[2024-03-18] MEDS: ASPIRIN CHEW 324 MG PO STA (16:18)
--- NOTE | 2024-03-18 16:33 | CT Scan Report ---
CT head/brain wo con CLINICAL HISTORY: headache, HTN Technique: Contiguous axial CT images of the head were acquired from the base of the skull to the konrad concepción without intravenous contrast administration. Images were viewed in brain, subdural and bone [facility] . Automated dose lowering techniques and/or adjustment according to patient size were utilized for this exam. Comparison: Comparison is made to CT head 05/07/2020 Findings: The ventricles, basal cisterns, and cerebral sulci are normal. There is no acute intracranial hemorrh age or evidence of acute territorial infarction. Neither mass effect, shift of the midline structures , nor abnormal extra-axial fluid collections are shown. Interval development of an old infarct in th e left parietal lobe. Additional foci of encephalomalacia are unchanged. Imaged portions of the paranasal sinuses and mastoid air cells are clear. The orbits appear normal. There are no acute fractures of the calvaria or scalp swelling. Impression: No acute intracranial hemorrhage, no evidence of acute territorial infarction or other acute intracra nial disease process. Left parietal encephalomalacia is compatible with interval chronic infarct. ACT 112: Negative or not required by law. Electronically signed by: Han Loomis M.D. 03/18/2024 4:31 PM
[2024-03-18 16:49] LABS: Appearance Urine Clear (Clear); Bacteria Urine Automated None Seen (None Seen); Bilirubin Urine Negative (Negative); Blood Urine Negative (Negative); Cast Urine Automated 0-2 /lpf (0-2); Color Urine Yellow; Epithelial Cell Urine Auto 0-2 /hpf (0-2); Glucose Urine UA Negative (Negative); Ketones Urine Negative (Negative); Leukocyte Esterase Urine 1+ (Negative); Nitrite Urine Negative (Negative); Protein Urine Negative (Negative); RBC Urine Automated 0-2 /hpf (0-2); Specific Gravity Urine 1.007 (1.000-1.030); Urobilinogen Urine Negative (Negative); WBC Urine Automated 0-5 /hpf (0-5); pH Urine 7.5 (4.5-7.5)
[2024-03-18] MEDS ORDERED: hydrALAZINE HCL 25 MG TAB PO PRN (16:53)
[2024-03-18] MEDS ORDERED: POLYETHYLENE (MIRALAX) 17 GM PACK PO PRN (16:54)
[2024-03-18] MEDS ORDERED: ONDANSETRON INJ 2 MG/ML 2 ML VIAL IV PRN (16:54)
[2024-03-18] MEDS ORDERED: ALUMINUM/MAGNESIUM SUSP 30 ML UDC PO PRN (16:54)
[2024-03-18] MEDS ORDERED: ACETAMINOPHEN 325 MG TAB PO PRN (16:54)
[2024-03-18] MEDS: hydrALAZINE HCL 20 MG/ML VIAL IV ONE (16:54)
--- NOTE | 2024-03-18 17:02 | History & Physical Report ---
Date of Service March 18, 2024 Assessment & Plan (1) Hypertensive emergency: Plan: Systolic blood pressure in 200s, headache Will continue lisinopril, hydrochlorothiazide, will start Norvasc Hydralazine as needed for systolic blood pressure more than 160 Monitor on telemetry (2) H/O: CVA (cerebrovascular accident): Plan: Continue home medication, Plavix, statin, and will gradually bring her blood pr essure down Continue lisinopril, hydrochlorothiazide, start Norvasc (3) Acid reflux: Plan: Continue PPI (4) Hypercholesteremia: Plan: Continue statins History of Present Illness Chief Complaint: Headache, her blood pressure Primary Care Provider: Carol Barry MD This 78-year-old female with past medical history history significant for CVA 6 years, she is on Plavix, history of hypertension dyslipidemia, presents to the emergency room with complaints of headache and not feeling well, she takes lisinopril 40 mg daily as well as hydrochlorothiazide, her blood pressure usually well-controlled, she decided to check her blood pressure at home and was very elevated in the 200s, in the emergency room but still elevated, she will receive hydralazine, CT of the brain no acute strokes or hemorrhage, patient denies any numbness or weakness upper or lower extremity, no visual change, still has a mild headache. Denies chest pain or shortness of breath, no fever or cough, no nausea no vomiting Allergies Allergy/AdvReac Type Severity Reaction Status Date / Time codeine AdvReac Mild UPSET Verified 03/18/24 16:55 STOMACH/NAUSEA oxycodone AdvReac Mild nausea Verified 03/18/24 16:55 Home Medications Medication Instructions Recorded Confirmed Type ascorbic acid (vitamin C) 500 mg 500 mg PO QAM 03/19/19 03/18/24 History tablet calcium carbonate (Calcium 600) 600 mg PO QAM 03/19/19 03/18/24 History multivitamin 1 tab PO QAM 03/19/19 03/18/24 History coenzyme Q10 10 mg capsule 10 mg PO QAM 11/18/19 03/18/24 History vitamin E 268 mg (400 unit) capsule 400 unit PO QAM 05/07/20 03/18/24 History cholecalciferol (vitamin D3) 50 50 mcg PO QAM 06/20/22 03/18/24 History mcg (2,000 unit) capsule pantoprazole 20 mg tablet,delayed 20 mg PO Q OTHER DAY 06/05/23 03/18/24 History release lisinopril 40 mg tablet 40 mg PO QAM #90 tabs 06/20/23 03/18/24 Rx atorvastatin 40 mg tablet 40 mg PO QAM 90 days #90 tabs 07/29/23 03/18/24 Rx triamcinolone acetonide 0.1 % 1 applic topical BID 2 weeks #30 11/09/23 03/18/24 Rx topical ointment grams clopidogrel 75 mg tablet 75 mg PO QAM 90 days #90 tabs 03/05/24 03/18/24 Rx alendronate 70 mg tablet (Fosamax) 70 mg PO WK 03/18/24 03/18/24 History hydrochlorothiazide 12.5 mg tablet 0 mg PO QAM 03/18/24 03/18/24 History Past Med/Surg History Problem List (Updated 03/18/24 @ 17:00 by Daphne Kamara MD) Hypertensive emergency Rotator cuff tendinitis Medicare annual wellness visit, subsequent (Chronic) History of compression fracture of vertebral column (10/08/20) L3 and T12 H/O: CVA (cerebrovascular accident) August 2016, right frontal and temporal lobes Impaired fasting glucose (Chronic) Sensorineural hearing loss (SNHL) of right ear with restricted hearing of left ear Cervical radiculopathy at C6 Vitamin D deficiency Osteoporosis Acid reflux Tubular adenoma of colon Tinnitus, bilateral worse in right ear Hypercholesteremia Hypertension Medical History (Updated 03/18/24 @ 17:00 by Daphne Kamara MD) History of acute pancreatitis Plantar fasciitis of right foot History of cellulitis 07/2022- left upper arm infection at site from flu shot, completed antibiotics, resolved per pt Osteoporosis Osteoarthritis History of pancreatitis History of CVA (cerebrovascular accident) 2015 -- residual numbness to left hand - takes plavix Surgical History History of cataract surgery B/L History of wisdom tooth extraction History of colonoscopy History of laparoscopic cholecystectomy Family History Mother Diabetes Stage 3 chronic kidney disease Coronary heart disease Brother Colon cancer Father Myocardial infarction Other No family history of adverse response to anesthesia Denies family history of Ovarian cancer Prostate cancer Breast cancer Social History (Updated 01/02/24 @ 09:35 by KILO Hdz) Smoking Status: Former smoker Tobacco Type: Cigarettes Age Started Using Tobacco: 20; Age Quit Using Tobacco: 68; packs per day: 1; Second Hand Exposure: Yes ( A CHILD); Do You Dip or Chew Tobacco: No; Hx Alcohol Use: Yes Alcohol type: beer and wine Alcohol Intake Frequency: 2-3 x/Week Hx Substance Use: No Preferred Language: Armenian Communication Ability: Effective Visual Impairment: No Limitations Hearing Ability: Normal [employer] Consulting Architect Required: No Beliefs That Will Affect Care: None marital status: Single Current Living Situation: Significant Other current occupational status: retired 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 Feels Safe at Home: Yes Childhood Exposure to Second-Hand Smoke: Yes Diet: regular caffeine: Yes Dental Care, Regularly: Yes Physical Activity Frequency: Does not Exercise Seatbelt Use: always Sunscreen Use: Yes Assistive Devices: Glasses Review of Systems Review of Systems: All systems reviewed & are unremarkable except as noted in Subjective Physical Exam Physical Exam: Head atraumatic normocephalic Neck supple Lungs are to auscultation bilaterally Heart S1-S2 regular, no murmurs gallops or rubs appreciated Abdomen soft nontender nondistended Extremities no clubbing no cyanosis Neuro alert awake oriented x 3 Results & Data Results & Data Vital Signs (Past 12 Hours) Vital Signs Temp Pulse Pulse Resp BP BP Pulse Ox 03/18/24 15:14 62 22 151/110 H 98 03/18/24 14:55 69 03/18/24 12:48 84 20 97 03/18/24 12:46 36.7 C 77 18 196/83 H 97 O2 Del Method 03/18/24 15:14 Room Air 03/18/24 14:55 03/18/24 12:48 Room Air 03/18/24 12:46 Room Air Laboratory Results Abnormal lab results 03/18/24 03/18/24 Range/Units 13:30 16:20 Glucose 109 H (70-99(Fasting)) mg/dl Troponin I High Sens 15.5 H (0-14) pg/ml Ur Leukocyte Esterase 1+ H (Negative) Diagnostic Findings Chest X-Ray 03/18/24 12:47 XR chest 1V not portable CLINICAL HISTORY: hypertension TECHNIQUE: Single frontal radiograph of the chest was obtained. Comparison: Comparison is made to chest radiograph 05/26/2022 FINDINGS: No lines and tubes are seen. Calcified aortic knob is seen. The lungs are clear. No evidence of pleural effusion or pneumothorax. IMPRESSION: No acute chest disease. ACT 112: Negative or not required by law. Electronically signed by: aHn Loomis M.D. 03/18/2024 1:[address] 03/18/24 15:36 CT head/brain wo con CLINICAL HISTORY: headache, HTN Technique: Contiguous axial CT images of the head were acquired from the base of the skull to the vertex without intravenous contrast administration. Images were viewed in brain, subdural and bone windows. Automated dose lowering techniques and/or adjustment according to patient size were utilized for this exam. Comparison: Comparison is made to CT head 05/07/2020 Findings: The ventricles, basal cisterns, and cerebral sulci are normal. There is no acute intracranial hemorrhage or evidence of acute territorial infarction. Neither mass effect, shift of the midline structures, nor abnormal extra-axial fluid collections are shown. Interval development of an old infarct in the left parietal lobe. Additional foci of encephalomalacia are unchanged. Imaged portions of the paranasal sinuses and mastoid air cells are clear. The orbits appear normal. There are no acute fractures of the calvaria or scalp swelling. Impression: No acute intracranial hemorrhage, no evidence of acute territorial infarction or other acute intracranial disease process. Left parietal encephalomalacia is com patible with interval chronic infarct. ACT 112: Negative or not required by law. Electronically signed by: Han Loomis M.D. 03/18/2024 4:31 PM PG Care Time/CCT Total # of Minutes Spent Total Time Spent with Patient: Total time spent is greater than 50% in coordination of care (as documented) at patient's floor/unit and/or counseling patient: Coding Level of Care Code 43656 INT INP/OBS CARE 3/75MIN Diagnoses Hypertensive emergency I16.1 H/O: CVA (cerebrovascular accident) Z86.73 Acid reflux K21.9 Hypercholesteremia E78.00
[2024-03-18] MEDS: amLODIPine BESYLATE 5 MG TAB PO ONE ×2 (17:21→19:47)
[2024-03-18] MEDS ORDERED: cloNIDine HCL 0.1 MG TAB PO PRN (18:03)
--- NOTE | 2024-03-18 18:20 | Emergency Department Note ---
Impression & Plan Severe hypertension, Elevated troponin ED Provider Note NAME: NORMAN JUNG AGE: 78 SEX: Female INFORMANT: Patient ED PROVIDER(S): Que Plaza MD CHIEF COMPLAINT: Hypertension PLAN: Disposition: Admitted Outpatient prescription management: none Referral: None MEDICAL DECISION MAKING: Patient present because of fatigue and elevated blood pressure. She had a minimal headache that was improved without direct intervention. She has no fever or nuchal rigidity. The patient has no focal findings on examination. Tickborne labs were done and negative. CBC and chemistry panel was unremarkable. Patient has an elevated cardiac troponin albeit slightly. Patient's blood pressure improved slightly but then on monitoring did increase again to a significant level. Head CT imaging did not reveal any acute pathology. Given the elevated troponin and fatigue patient had an aspirin administered. She was given IV hydralazine for her blood pressure after discussion with Dr. Kamara, internal medicine. [facility] and admitted for further management. Care/management discussed with: manager bridge Level of care consideration(s): After review of the information above and other included data, I feel the patient requires escalation of care to admit Triage Nursing notes: reviewed and agree them. Vital Signs: reviewed and remarkable for significant hypertension Additional History obtained from: none Chronic Medical/Social Conditions affecting care: Hypertension Prior/ Outside/ External records reviewed: Prior blood pressure measurements reviewed. Patient is very labile with hypertension as well as hypotension noted. Differential Diagnosis: Benign hypertension, hypertensive emergency, cardiovascular pathology, toxicologic, pheochromocytoma, electrolyte abnormality, renal disease, endorgan damage, as well as other pathologies. Diagnostics, independently interpreted by me: ECG: Twelve-lead ECG reveals a normal sinus rhythm at 67 bpm LVH. Poor R wave progression. No ST elevation. Cardiac Monitoring: Cardiac monitoring ordered by me: The patient was placed on continuous cardiac monitoring and observed. It revealed a normal sinus rhythm at 85 beats per minute without ectopy or evidence of dysrhythmia. Medical decision rules: none Imaging studies: Head CT: A noncontrast CT scan of the head was performed and was negative for tumor, fracture, intracranial hemorrhage, or other acute pathology. Chest x-ray. Findings: A chest x-ray was performed and revealed no pneumothorax, effusion, infiltrate, pulmonary edema, free air under the diaphragm, or wide mediastinum. Impression: No acute disease. I refer you to the EMR for further details. HPI: 78 year old Female arrives for evaluation of fatigue and hypertension. This started about 2 weeks ago with fatigue and is progressive. The patient also notes the following associated symptoms, developing a headache today as well as having a blood pressure over 204/117. The patient has taken no medication for relieving factors. Current pain is rated as 3/10. Patient states that she has been more fatigued each day. She does do a lot of work outside. Denies any bug bites or tick bites. No flulike symptoms. Pt denies LOC, fevers, chills, diaphoresis, visual changes, neck pain, chest pain, breathing difficulties, nausea, vomiting, abdominal pain, back pain, melena, hematochezia, urinary symptoms, numbness, focal weakness, lymphadenopathy, rash, or other complaints. . PAST MEDICAL HISTORY: See Below, hypertension PAST SURGICAL HISTORY: See Below, SOCIAL HISTORY: See Below, former HOME MEDICATIONS: See Below ALLERGIES: See Below VITALS: See Below PHYSICAL EXAMINATION: GENERAL: Awake, alert, well-appearing, in no distress HENT: Normocephalic, atraumatic. Oropharynx unremarkable. EYES: Normal conjunctiva. Sclera non-icteric. PERRLA. EOMI. NECK: Inspection normal. Non-tender. Supple. No nuchal rigidity. FROM. No masses. RESPIRATORY: Clear to auscultation. No wheezes. No rales. Normal respiratory effort. CARDIAC: Normal rate. Normal rhythm. No murmurs. No rubs. Extremities warm and well perfused. Pulses equal. No JVD. GI: Soft, non-distended. No tenderness to palpation. No rebound or guarding. No masses. RECTAL: Deferred. MUSCULOSKELETAL: Atraumatic. Chest examination reveals no tenderness. The back is symmetrical on inspection without obvious abnormality. There is no CVA tenderness to palpation. No joint edema. LOWER EXTREMITIES: Calves are equal size bilaterally and non-tender. No edema. No discoloration. NEURO: Normal sensorium. No sensory or motor deficits noted. Speech normal. Cranial nerves II through XII intact. No drift. Normal rapid alternating movements. SKIN: No rash or jaundice noted. PROCEDURES: none CRITICAL CARE: none OBSERVATION NOTE: none Past Med/Surg History Problem List (Updated 03/18/24 @ 18:20 by Que Plaza MD) Elevated troponin (Acute) Severe hypertension (Acute) Hypertensive emergency Rotator cuff tendinitis Medicare annual wellness visit, subsequent (Chronic) History of compression fracture of vertebral column (10/08/20) L3 and T12 H/O: CVA (cerebrovascular accident) August 2016, right frontal and temporal lobes Impaired fasting glucose (Chronic) Sensorineural hearing loss (SNHL) of right ear with restricted hearing of left ear Cervical radiculopathy at C6 Vitamin D deficiency Osteoporosis Acid reflux Tubular adenoma of colon Tinnitus, bilateral worse in right ear Hypercholesteremia Hypertension Medical History (Updated 03/18/24 @ 18:20 by Que Plaza MD) History of acute pancreatitis Plantar fasciitis of right foot History of cellulitis 07/2022- left upper arm infection at site from flu shot, completed antibiotics, resolved per pt Osteoporosis Osteoarthritis History of pancreatitis History of CVA (cerebrovascular accident) 2015 -- residual numbness to left hand - takes plavix Surgical History History of cataract surgery B/L History of wisdom tooth extraction History of colonoscopy History of laparoscopic cholecystectomy Family History Mother Diabetes Stage 3 chronic kidney disease Coronary heart disease Brother Colon cancer Father Myocardial infarction Other No family history of adverse response to anesthesia Denies family history of Ovarian cancer Prostate cancer Breast cancer Social History (Updated 01/02/24 @ 09:35 by KILO Hdz) Smoking Status: Former smoker Tobacco Type: Cigarettes Age Started Using Tobacco: 20; Age Quit Using Tobacco: 68; packs per day: 1; Second Hand Exposure: Yes ( A CHILD); Do You Dip or Chew Tobacco: No; Hx Alcohol Use: Yes Alcohol type: beer and wine Alcohol Intake Frequency: 2-3 x/Week Hx Substance Use: No Preferred Language: Armenian Communication Ability: Effective Visual Impairment: No Limitations Hearing Ability: Normal Bi Application Developer Required: No Beliefs That Will Affect Care: None marital status: Single Current Living Situation: Significant Other current occupational status: retired 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 Feels Safe at Home: Yes Childhood Exposure to Second-Hand Smoke: Yes Diet: regular caffeine: Yes Dental Care, Regularly: Yes Physical Activity Frequency: Does not Exercise Seatbelt Use: always Sunscreen Use: Yes Assistive Devices: Glasses Allergies Allergies Allergy/AdvReac Type Severity Reaction Status Date / Time codeine AdvReac Mild UPSET Verified 03/18/24 16:55 STOMACH/NAUSEA oxycodone AdvReac Mild nausea Verified 03/18/24 16:55 Home Meds Home Medications Medication Instructions Recorded Confirmed ascorbic acid (vitamin C) 500 mg 500 mg PO QAM 03/19/19 03/18/24 tablet calcium carbonate (Calcium 600) 600 mg PO QAM 03/19/19 03/18/24 multivitamin 1 tab PO QAM 03/19/19 03/18/24 coenzyme Q10 10 mg capsule 10 mg PO QAM 11/18/19 03/18/24 vitamin E 268 mg (400 unit) capsule 400 unit PO QAM 05/07/20 03/18/24 cholecalciferol (vitamin D3) 50 50 mcg PO QAM 06/20/22 03/18/24 mcg (2,000 unit) capsule pantoprazole 20 mg tablet,delayed 20 mg PO Q OTHER DAY 06/05/23 03/18/24 release alendronate 70 mg tablet (Fosamax) 70 mg PO WK 03/18/24 03/18/24 hydrochlorothiazide 12.5 mg tablet 0 mg PO QAM 03/18/24 03/18/24 Previous Rx's Medication Instructions Recorded lisinopril 40 mg tablet 40 mg PO QAM #90 tabs 06/20/23 atorvastatin 40 mg tablet 40 mg PO QAM 90 days #90 tabs 07/29/23 triamcinolone acetonide 0.1 % 1 applic topical BID 2 weeks #30 11/09/23 topical ointment grams clopidogrel 75 mg tablet 75 mg PO QAM 90 days #90 tabs 03/05/24 Results & Data (ED) Vital Signs Vital Signs - 24 hr 03/18/24 12:46 03/18/24 12:48 03/18/24 14:55 Temperature 36.7 C Temperature Source Temporal Artery Scan Pulse Rate 77 84 69 Pulse Rate [Apical] Pulse Rhythm Regular Respiratory Rate 18 20 Respiratory Effort / Characteristics Non-Labored Spontaneous Respiratory Depth Normal Respiratory Pattern Blood Pressure 196/83 H Blood Pressure [Right Arm] Blood Pressure Mean 120 Blood Pressure Mean [Right Arm] Blood Pressure Position Sitting Pulse Oximetry 97 97 Oxygen Delivery Method Room Air Room Air Sepsis Recent Fever Within 48 Hours No Sepsis New/Unexplained Change in Mental Status No Sepsis Action Taken by Nursing No Action Required 03/18/24 15:14 03/18/24 17:04 03/18/24 17:23 Temperature Temperature Source Pulse Rate Pulse Rate [Apical] 62 72 81 Pulse Rhythm Respiratory Rate 22 18 21 Respiratory Effort / Characteristics Non-Labored Spontaneous Non-Labored Spontaneous Respiratory Depth Normal Normal Respiratory Pattern Regular Regular Blood Pressure Blood Pressure [Right Arm] 151/110 H 184/97 H 167/79 H Blood Pressure Mean Blood Pressure Mean [Right Arm] 123 126 108 Blood Pressure Position Pulse Oximetry 98 96 Oxygen Delivery Method Room Air Room Air Sepsis Recent Fever Within 48 Hours Sepsis New/Unexplained Change in Mental Status Sepsis Action Taken by Nursing 03/18/24 17:42 03/18/24 17:48 Temperature Temperature Source Pulse Rate Pulse Rate [Apical] 85 85 Pulse Rhythm Respiratory Rate 20 20 Respiratory Effort / Characteristics Non-Labored Spontaneous Non-Labored Spontaneous Respiratory Depth Normal Normal Respiratory Pattern Regular Regular Blood Pressure Blood Pressure [Right Arm] 173/87 H 207/83 H Blood Pressure Mean Blood Pressure Mean [Right Arm] 115 124 Blood Pressure Position Pulse Oximetry 96 97 Oxygen Delivery Method Room Air Room Air Sepsis Recent Fever Within 48 Hours Sepsis New/Unexplained Change in Mental Status Sepsis Action Taken by Nursing Laboratory Data 03/18/24 13:30 03/18/24 13:30 Lab Results 03/18/24 03/18/24 03/18/24 Range/Units 13:30 16:20 17:26 WBC 4.92 (4.8-10.8) K/ul RBC 4.47 (4.20-5.40) M/uL Hgb 13.7 (12.0-16.0) g/dl Hct 40.4 (37.0-47.0) % MCV 90.4 (80.0-100.0) fL MCH 30.6 (25.0-34.0) pg MCHC 33.9 (32.0-36.0) g/dL RDW Std Deviation 41.7 (36.4-46.3) fL RDW Coeff of Sana 12.7 (11.5-14.5) % Plt Count 231 (130-400) K/uL MPV 9.8 (9.4-12.4) fL Immature Gran % (Auto) 0.2 % Neut % (Auto) 57.2 % Lymph % (Auto) 30.5 % [place] % (Auto) 8.7 % Eos % (Auto) 2.6 % Baso % (Auto) 0.8 % Neut # (Auto) 2.81 (1.40-6.50) K/uL Lymph # (Auto) 1.50 (1.20-3.40) K/uL [place] # (Auto) 0.43 (0.11-0.59) K/uL Eos # (Auto) 0.13 (0.00-0.50) K/uL Baso # (Auto) 0.04 (0.00-0.20) K/uL Immature Gran # (Auto) 0.01 (0.01-0.20) K/uL Polychromasia 1+ Sodium 139 (136-145) mmol/L Potassium 3.8 (3.5-5.1) mmol/L Chloride 104 (98-107) mmol/L Carbon Dioxide 29 (21-32) mmol/L Anion Gap 6 (3-11) BUN 10 (6-23) mg/dl Creatinine 0.73 (0.6-1.2) mg/dl Est Cr Clr Drug Dosing 62.7 ml/min Est GFR ( Amer) 92.7 ml/min Est GFR (Non-Af Amer) 80.0 ml/min BUN/Creatinine Ratio 13.7 (10-20) Glucose 109 H (70-99(Fasting)) mg/dl Calcium 9.4 (8.6-10.3) mg/dl Total Bilirubin 0.7 (0.2-1.0) mg/dl AST 13 (13-39) U/L ALT 10 (7-52) U/L Alkaline Phosphatase 58 (34-104) U/L Troponin I High Sens 15.5 H 19.4 H (0-14) pg/ml Total Protein 7.5 (6.0-8.3) gm/dl Albumin 4.3 (3.4-5.0) gm/dl Globulin 3.2 (2.5-4.0) gm/dl Albumin/Globulin Ratio 1.3 (0.9-2) Urine Color Yellow Urine Appearance Clear (Clear) Urine pH 7.5 (4.5-7.5) Ur Specific [place] 1.007 (1.000-1.030) Urine Protein Negative (Negative) Urine Glucose (UA) Negative (Negative) Urine Ketones Negative (Negative) Urine Blood Negative (Negative) Urine Nitrite Negative (Negative) Urine Bilirubin Negative (Negative) Urine Urobilinogen Negative (Negative) Ur Leukocyte Esterase 1+ H (Negative) Urine WBC (Auto) 0-5 (0-5) /hpf Urine RBC (Auto) 0-2 (0-2) /hpf U Hyaline Cast (Auto) 0-2 (0-2) /lpf U Epithel Cells (Auto) 0-2 (0-2) /hpf Urine Bacteria (Auto) None Seen (None Seen) Anaplasma Smear See Comment Babesia Smear See Comment Lyme Disease Screen Negative (Negative) Administered Medications Discontinued Medications Amlodipine Besylate (Amlodipine Besylate 5 Mg Tab) 5 mg PO NOW ONE Stop: 03/18/24 16:52 Last Admin: 03/18/24 17:21 Dose: 5 mg Documented By: SAUL Aspirin (Aspirin Chew 324 Mg) 324 mg PO NOW STA Stop: 03/18/24 16:11 Last Admin: 03/18/24 16:18 Dose: 324 mg Documented By: LUCA Hydralazine HCl (Hydralazine Hcl 20 Mg/Ml Vial) 5 mg IV NOW ONE Stop: 03/18/24 16:39 Last Admin: 03/18/24 16:54 Dose: 5 mg Documented By: LUCA Imaging Data Radiologist's Impression: Chest X-Ray 03/18/24 12:47 XR chest 1V not portable CLINICAL HISTORY: hypertension TECHNIQUE: Single frontal radiograph of the chest was obtained. Comparison: Comparison is made to chest radiograph 05/26/2022 FINDINGS: No lines and tubes are seen. Calcified aortic knob is seen. The lungs are clear. No evidence of pleural effusion or pneumothorax. IMPRESSION: No acute chest disease. ACT 112: Negative or not required by law. Electronically signed by: Han Loomis M.D. 03/18/2024 1:[address] 03/18/24 15:36 CT head/brain wo con CLINICAL HISTORY: headache, HTN Technique: Contiguous axial CT images of the head were acquired from the base of the skull to the vertex without intravenous contrast administration. Images were viewed in brain, subdural and bone windows. Automated dose lowering techniques and/or adjustment according to patient size were utilized for this exam. Comparison: Comparison is made to CT head 05/07/2020 Findings: The ventricles, basal cisterns, and cerebral sulci are normal. There is no acute intracranial hemorrhage or evidence of acute territorial infarction. Neither mass effect, shift of the midline structures, nor abnormal extra-axial fluid collections are shown. Interval development of an old infarct in the left parietal lobe. Additional foci of encephalomalacia are unchanged. Imaged portions of the paranasal sinuses and mastoid air cells are clear. The orbits appear normal. There are no acute fractures of the calvaria or scalp swelling. Impression: No acute intracranial hemorrhage, no evidence of acute territorial infarction or other acute intracranial disease process. Left parietal encephalomalacia is compatible with interval chronic infarct. ACT 112: Negative or not required by law. Electronically signed by: Han Loomis M.D. 03/18/2024 4:31 PM Discharge Plan Visit Data Chief Complaint: Hypertension Stated Complaint: HYPERTENSION, HEADACHE ED Provider: Que Plaza Discharge Problem: Severe hypertension, Elevated troponin Patient Disposition: Admitted As Inpatient Discharge Instructions Interventions: ED Discharge Assessment Last Done: 03/18/24 18:15 Forms Stand Alone Forms: My [facility] [employer] Prescriptions Prescriptions: No Action lisinopril 40 mg tablet 40 mg PO QAM Qty: 90 3RF atorvastatin 40 mg tablet 40 mg PO QAM 90 Days Qty: 90 4RF clopidogrel 75 mg tablet 75 mg PO QAM 90 Days Qty: 90 4RF coenzyme Q10 10 mg capsule 10 mg PO QAM calcium carbonate [Calcium 600] 600 mg calcium (1,500 mg) tablet 600 mg PO QAM multivitamin tablet 1 tab PO QAM ascorbic acid (vitamin C) 500 mg tablet 500 mg PO QAM triamcinolone acetonide 0.1 % ointment 1 applic topical BID 14 Days Qty: 30 3RF vitamin E 400 unit Capsule 400 unit PO QAM cholecalciferol (vitamin D3) 50 mcg (2,000 unit) capsule 50 mcg PO QAM pantoprazole 20 mg tablet,delayed release (DR/EC) 20 mg PO Q OTHER DAY Rx Instructions: Take 20mg by mouth every other day alendronate [Fosamax] 70 mg tablet 70 mg PO WK Rx Instructions: Take 1 tablet, once weekly with plain water. Patient stated she takes every Wednesday hydrochlorothiazide 12.5 mg tablet 0 mg PO QAM Rx Instructions: Per pt, this has been on hold since 11/2023 but she does not want it removed from the list. Referrals Referrals: Carol Barry MD [Primary Care Provider] -
[2024-03-18] MEDS: TRIAMCINOLONE ACET 0.1% OINT 15 GM TUBE TOP SCH (21:01)
[2024-03-18] MEDS: PANTOprazole 40 MG TAB PO SCH (21:01)
[2024-03-18] MEDS: HEPARIN SOD 5,000 UNIT/0.5 ML VIAL SQ SCH (21:01)
[2024-03-19] MEDS ORDERED: NON-FORMULARY MEDICATION (Coenzyme Q10 10 mg capsule) PO SCH (09:00)
[2024-03-19] MEDS: TOCOPHERYL, DL-ALPHA 400 UNITS 180 MG CAP PO SCH (09:10)
[2024-03-19] MEDS: lisinopril 40 MG TAB PO SCH (09:10)
[2024-03-19] MEDS: hydroCHLOROthiazide 25 MG TAB PO SCH (09:10)
[2024-03-19] MEDS: CLOPIDOGREL BISULFATE 75 MG TAB PO SCH (09:10)
[2024-03-19] MEDS: amLODIPine BESYLATE 5 MG TAB PO SCH (09:11)
[2024-03-19] MEDS: ATORVASTATIN 40 MG TAB PO SCH (09:11)
[2024-03-19] MEDS: ASCORBIC ACID 500 MG TAB PO SCH (09:11)
[2024-03-19] MEDS: CALCIUM CARBONATE 1250MG TAB PO SCH (09:11)
[2024-03-19] MEDS: CHOLECALCIFEROL 25 MCG (1000 UNITS) TAB PO SCH (09:11)
[2024-03-19] MEDS: OPTIRAY 320 125ml IV ONE (10:42)
--- NOTE | 2024-03-19 11:02 | CT Scan Report ---
NECK CTA HISTORY: cerebrovascular disease TECHNIQUE: Multiaxial CT images of the neck were performed following the intravenous administration o f contrast to evaluate the major cervical vessels. 3D/MIP images were also obtained. Sagittal and cor onal reformats were reviewed. All measurements were calculated based on NASCET criteria. A dose low ering technique was utilized adhering to the principles of ALARA. COMPARISON STUDY: CTA neck 05/07/2020. FINDINGS: Moderate calcified plaque within the aortic arch and moderate to severe calcified plaque wi thin the proximal great vessels. Severe calcified plaque within the bilateral carotid bifurcations. M melina focal stenosis within the distal left vertebral artery on image 298. 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 This remains unchanged. [place] cified plaque results in up to 60% stenosis at the takeoff of the right internal carotid artery. This has slightly progressed. There is approximately 70% focal stenosis at the takeoff of the left strategy intern al carotid artery on image 218 due to the calcified plaque. This has also slightly progressed. There is approximately 75% focal stenosis at the takeoff of the left common carotid artery and left subclav reid artery due to the calcified plaque. This is also progressed in the interval. IMPRESSION: 1. No change in the chronic occlusion of the proximal to mid right vertebral artery with reconstituti on of flow at the C3 level. 2. Multifocal areas of stenosis within the carotid arteries as described above which has slightly pro gressed. ACT 112: Negative or not required by law. Electronically signed by: Aung Glover M.D. 03/19/2024 11:00 AM
--- NOTE | 2024-03-19 12:15 | CT Scan Report ---
CTA ANGIOGRAPHY OF THE HEAD CLINICAL HISTORY: Cerebrovascular disease. COMPARISON STUDY: CTA of the head May 07, 2020. MRI of the brain May 07, 2020. Head CT March 18, 2024. TECHNIQUE: Helical axial images of the head were obtained following uneventful intravenous administr ation of 118 cc of Optiray. Sagittal and coronal reconstructions were viewed as well as maximal inten sity projections on an independent 3-D workstation. Automated exposure control was utilized for the study. A dose lowering technique was utilized adhering to the principles of ALARA. FINDINGS: Brain parenchyma is better depicted on recent unenhanced head CT. Ventricular system is unr emarkable. Basal cisterns are patent. A small focus of encephalomalacia within the left parietal lobe suggests an old infarct. There are old small infarcts within the left cerebellar hemisphere. There i s mild stenosis of the intracranial portion of the left vertebral artery. The basilar artery and bila teral posterior cerebral arteries are patent. The bilateral M1, M2, A1 and A2 segments are patent. Th ere is moderate plaque within the bilateral cavernous carotids with mild stenosis. There is no intrac ranial aneurysm. No dissection within the intracranial vessels is identified. No vessel occlusion is noted. IMPRESSION: 1. No vessel occlusion. 2. Moderate calcified plaque within the cavernous carotids with mild stenosis. 3. Mild stenosis of the intracranial portion of the left vertebral artery. ACT 112: Negative or not required by law. Electronically signed by: Roque Dumont M.D. 03/19/2024 12:13 PM
--- NOTE | 2024-03-19 16:54 | XCELERA ---
[id number] \\[email or web address]\[id number]
--- NOTE | 2024-03-19 19:38 | Hospitalist Progress Note ---
Date of Service March 19, 2024 Assessment & Plan (1) Hypertensive emergency: Plan: Presented with systolic blood pressure of 200+ with headache and chest discomfort Both symptoms improved Minimal troponin elevation (see below) BPs significantly improved with adding amlodipine 5mg daily to her typical lisinopril and hydrochlorothiazide (2) Elevated troponin: Plan: minimal elevation peak trop - 19.4 repeat in am at minimum she had myocardial demand ischemia in setting of #1 above echo ordered/results pending EKG w/o ischemic changes [id number], she had chest pain yesterday in the setting of #1 and has had extreme fatigue for several weeks strong famhx CAD await echo to determine next steps (3) Fatigue: Plan: severe x 2-3+ weeks per spouse etiology? check TSH check B12 await echo await MRI brain (4) Cerebrovascular disease: Plan: prior h/o right-sided frontal lobe CVA several years ago multiple lacunes in addition to the right frontal lobe CVA seen on CT head yesterday there is a new appearing left-sided parietal lobe CVA - chronicity uncertain strongly advised repeat MRI brain to gather more information cont plavix cont meds for BP control check lipids am (5) H/O: CVA (cerebrovascular accident): Plan: Continue Plavix, statin Check lipids am Check TSH Cont BP meds including amlodipine see above/ below (6) Acid reflux: Plan: Continue PPI (7) Hypercholesteremia: Plan: Continue lipitor 40mg daily Check lipid profile am (8) Carotid artery stenosis: Plan: b/l on CTA neck today 60% on right, 70% on left await MRI brain to r/o acute or subacute CVA aggressive secondary prevention needed statin, plavix, etc depending on MRI findings may need to see vascular surgery to determine timing of any future procedure on her carotids (9) Vertebral artery stenosis: Plan: right-sided occluded Plan spouse updated at bedside extensively Admission and Anticipated Discharge Date Admission Date: March 18, 2024 Subjective patient lying in bed comfortably spouse at bedside had had headache yesterday at time of presentation - improved (not fully resolved but improved) she also had had a left-sided chest discomfort upon ER presentation that resolved yesterday no recurrent chest symptoms since no dyspnea no dyspnea on exertion spouse reports that Ms Tarango has been severely fatigued for 2+ weeks this is very unusual for her she typically is a very active person, gardens and cuts the lawn (push mower), etc no recent exertional chest pain or chest tightness denies exertional dyspnea on exertion we had lengthy discussion about her abnl CTA head/neck and abnl CT head +family history of CAD (mother, father) Review of Systems Review of Systems: gen - no fevers or chills cv - see HPI; no orthopnea or PND; no edema GI - no abd pain or N/V pulm - no cough Physical Exam Physical Exam: gen - NAD, pleasant, overweight neck - no JVD; +bruit on left heart - RRR, s1 s2, no murmur lungs - CTA b/l abd - soft NT ND BS+ ext - no edema, pulses 2+ b/l neuro - no facial droop; strength 5/5 x 4 exts; no pronator drift; speech clear/fluent Results & Data Results & Data Vital Signs (Past 12 Hours) Vital Signs Temp Pulse Pulse Resp BP BP Pulse Ox 03/19/24 16:01 84 03/19/24 15:59 36.7 C 82 18 117/76 94 03/19/24 12:28 36.7 C 72 18 135/74 96 03/19/24 08:36 36.8 C 75 18 115/61 98 03/19/24 07:56 77 O2 Del Method 03/19/24 16:01 03/19/24 15:59 Room Air 03/19/24 12:28 Room Air 03/19/24 08:36 Room Air 03/19/24 07:56 Laboratory Results Laboratory Results - last 48 hr 03/18/24 03/18/24 03/18/24 13:30 16:20 17:26 WBC 4.92 RBC 4.47 Hgb 13.7 Hct 40.4 MCV 90.4 MCH 30.6 MCHC 33.9 RDW Std Deviation 41.7 RDW Coeff of Sana 12.7 Plt Count 231 MPV 9.8 Immature Gran % (Auto) 0.2 Neut % (Auto) 57.2 Lymph % (Auto) 30.5 [place] % (Auto) 8.7 Eos % (Auto) 2.6 Baso % (Auto) 0.8 Neut # (Auto) 2.81 Lymph # (Auto) 1.50 [place] # (Auto) 0.43 Eos # (Auto) 0.13 Baso # (Auto) 0.04 Immature Gran # (Auto) 0.01 Polychromasia 1+ Sodium 139 Potassium 3.8 Chloride 104 Carbon Dioxide 29 Anion Gap 6 BUN 10 Creatinine 0.73 Est Cr Clr Drug Dosing 62.7 Est GFR ( Amer) 92.7 Est GFR (Non-Af Amer) 80.0 BUN/Creatinine Ratio 13.7 Glucose 109 H Calcium 9.4 Total Bilirubin 0.7 AST 13 ALT 10 Alkaline Phosphatase 58 Troponin I High Sens 15.5 H 19.4 H Total Protein 7.5 Albumin 4.3 Globulin 3.2 Albumin/Globulin Ratio 1.3 Urine Color Yellow Urine Appearance Clear Urine pH 7.5 Ur Specific [place] 1.007 Urine Protein Negative Urine Glucose (UA) Negative Urine Ketones Negative Urine Blood Negative Urine Nitrite Negative Urine Bilirubin Negative Urine Urobilinogen Negative Ur Leukocyte Esterase 1+ H Urine WBC (Auto) 0-5 Urine RBC (Auto) 0-2 U Hyaline Cast (Auto) 0-2 U Epithel Cells (Auto) 0-2 Urine Bacteria (Auto) None Seen Anaplasma Smear See Comment Babesia Smear See Comment Lyme Disease Screen Negative Diagnostic Findings Head CTA 03/19/24 09:33 CTA ANGIOGRAPHY OF THE HEAD CLINICAL HISTORY: Cerebrovascular disease. COMPARISON STUDY: CTA of the head May 07, 2020. MRI of the brain May 07, 2020. Head CT March 18, 2024. TECHNIQUE: Helical axial images of the head were obtained following uneventful intravenous administration of 118 cc of Optiray. Sagittal and coronal reconstructions were viewed as well as maximal intensity projections on an independent 3-D workstation. Automated exposure control was utilized for the study. A dose lowering technique was utilized adhering to the principles of ALARA. FINDINGS: Brain parenchyma is better depicted on recent unenhanced head CT. Ventricular system is unremarkable. Basal cisterns are patent. A small focus of encephalomalacia within the left parietal lobe suggests an old infarct. There are old small infarcts within the left cerebellar hemisphere. There is mild stenosis of the intracranial portion of the left vertebral artery. The basilar artery and bilateral posterior cerebral arteries are patent. The bilateral M1, M2, A1 and A2 segments are patent. There is moderate plaque within the bilateral cavernous carotids with mild stenosis. There is no intracranial aneurysm. No dissection within the intracranial vessels is identified. No vessel occlusion is noted. IMPRESSION: 1. No vessel occlusion. 2. Moderate calcified plaque within the cavernous carotids with mild stenosis. 3. Mild stenosis of the intracranial portion of the left vertebral artery. ACT 112: Negative or not required by law. Electronically signed by: Roque Dumont M.D. 03/19/2024 12:13 PM Neck CTA 03/19/24 09:33 NECK CTA HISTORY: cerebrovascular disease TECHNIQUE: Multiaxial CT images of the neck were performed following the intravenous administration of contrast to evaluate the major cervical vessels. 3D/MIP images were also obtained. Sagittal and coronal reformats were reviewed. All measurements were calculated based on NASCET criteria. A dose lowering technique was utilized adhering to the principles of ALARA. COMPARISON STUDY: CTA neck 05/07/2020. FINDINGS: Moderate calcified plaque within the aortic arch and moderate to severe calcified plaque within the proximal great vessels. Severe calcified plaque within the bilateral carotid bifurcations. Miles focal stenosis within the distal left vertebral artery on image 298. Chronic occlusion of the proximal to mid right vertebral artery with reconstitution at the C3 level. This remains unchanged. Calcified plaque results in up to 60% stenosis at the takeoff of the right internal carotid artery. This has slightly progressed. There is approximately 70% focal stenosis at the takeoff of the left internal carotid artery on image 218 due to the calcified plaque. This has also slightly progressed. There is approximately 75% focal stenosis at the takeoff of the left common carotid artery and left subclavian artery due to the calcified plaque. This is also progressed in the interval. IMPRESSION: 1. No change in the chronic occlusion of the proximal to mid right vertebral artery with reconstitution of flow at the C3 level. 2. Multifocal areas of stenosis within the carotid arteries as described above which has slightly progressed. ACT 112: Negative or not required by law. Electronically signed by: Aung Glover M.D. 03/19/2024 11:00 AM PG Care Time/CCT Total # of Minutes Spent Total Time Spent with Patient: Total time spent is greater than 50% in coordination of care (as documented) at patient's floor/unit and/or counseling patient: Coding Level of Care Code 15626 SUB INP/OBS CARE 3/50MIN Diagnoses Hypertensive emergency I16.1 Elevated troponin R79.89 Fatigue R53.83 Cerebrovascular disease I67.9 H/O: CVA (cerebrovascular accident) Z86.73 Acid reflux K21.9 Hypercholesteremia E78.00 Carotid artery stenosis I65.29 Vertebral artery stenosis I65.09
--- NOTE | 2024-03-19 21:30 | Magnetic Resonance Report ---
MR brain wo con CLINICAL HISTORY: ? new vs old L parietal lobe CVA TECHNIQUE: Multiplanar and multisequence MR images of the brain were obtained without intravenous con trast. Comparison: Comparison is made to CTA head and neck 03/19/2024 FINDINGS: No abnormal restricted diffusion is identified. Foci of T2 and FLAIR hyperintensity are noted in the paraventricular areas consistent with chronic small vessel ischemic disease. Ex vacuo ventriculomegal y and sulcal enlargement is noted compatible with diffuse volume loss. A few foci of encephalomalacia are seen compatible with prior infarct. There is no mass effect or midline shift. There is no eviden ce of acute intraparenchymal hemorrhage. No extra axial fluid collections are seen. The corpus callos um, pituitary gland, and cerebellar tonsils appear grossly unremarkable. Flow voids of the major intracranial arterial vessels are identified. The imaged portions of the para nasal sinuses, mastoid air cells, and orbits are unremarkable. IMPRESSION: No acute abnormality and in particular no evidence of acute infarct. In particular, the previously no kalina hypodensity in the left parietal lobe is compatible with encephalomalacia from chronic infarct. ACT 112: Negative or not required by law. Electronically signed by: Han Loomis M.D. 03/19/2024 9:29 PM
[2024-03-19] MEDS: ASPIRIN 81 MG ECTAB PO SCH (21:32)
--- NOTE | 2024-03-20 05:56 | Electrocardiogram Report ---
Test Reason : Blood Pressure : / mmHG Vent. Rate : 067 BPM Atrial Rate : 067 BPM P-R Int : 134 ms QRS Dur : 082 ms QT Int : 398 ms P-R-T Axes : 054 -06 033 degrees QTc Int : 420 ms Normal sinus rhythm Minimal voltage criteria for LVH, may be normal variant ( R in aVL ) Cannot rule out Anterior infarct (cited on or before 27-APR-2017) Abnormal ECG When compared with ECG of 26-MAY-2022 15:30, No significant change was found Confirmed by Tim De LaP az ([id number]) on 03/20/2024 5:55:50 AM Referred By: Confirmed By:Tim De La Paz
[2024-03-20] MEDS: ALENDRONATE SODIUM 70 MG TAB PO SCH (06:04)
--- NOTE | 2024-03-20 06:16 | Electrocardiogram Report ---
Test Reason : Blood Pressure : / mmHG Vent. Rate : 085 BPM Atrial Rate : 085 BPM P-R Int : 154 ms QRS Dur : 078 ms QT Int : 380 ms P-R-T Axes : 063 -09 015 degrees QTc Int : 452 ms Normal sinus rhythm Cannot rule out Anterior infarct (cited on or before 27-APR-2017) Abnormal ECG When compared with ECG of 18-MAR-2024 13:26, No significant change was found Confirmed by Tim De La Paz ([id number]) on 03/20/2024 6:15:35 AM Referred By: REFERRED SELF Confirmed By:Tim De La Paz
--- NOTE | 2024-03-20 06:32 | Electrocardiogram Report ---
Test Reason : Blood Pressure : / mmHG Vent. Rate : 082 BPM Atrial Rate : 082 BPM P-R Int : 144 ms QRS Dur : 076 ms QT Int : 392 ms P-R-T Axes : 058 -04 023 degrees QTc Int : 457 ms Normal sinus rhythm Cannot rule out Anterior infarct (cited on or before 27-APR-2017) Abnormal ECG When compared with ECG of 18-MAR-2024 17:48, No significant change was found Confirmed by Tim De La Paz ([id number]) on 03/20/2024 6:31:49 AM Referred By: REFERRED SELF Confirmed By:Tim De La Paz
[2024-03-20 09:10] LABS: Calcium 8.7 mg/dl (8.6-10.3); Magnesium 1.7 mg/dl (1.7-2.4); Potassium 3.7 mmol/L (3.5-5.1)
[2024-03-20 09:16] LABS: BUN Creatinine Ratio 18.3 (10-20); Creatinine Clr Calc Pharmacy 48.8 ml/min; Est GFR (African American) 69.2 ml/min; Est GFR (Non-African American) 59.7 ml/min
[2024-03-20 09:23] LABS: Troponin I High Sensitivity 13.9 pg/ml (0-14)
[2024-03-20 09:31] LABS: Thyroid Stimulating Hormone 2.783 uIu/ml (0.300-4.500)
--- NOTE | 2024-03-20 13:35 | Cardiology Consultation ---
Date of Consultation March 20, 2024 Assessment & Plan (1) Hypertensive emergency: (2) Elevated troponin: (3) Atypical chest pain: (4) Snores: (5) Mitral stenosis: (6) Abnormal echocardiogram: (7) Atherosclerosis: Plan ASSESSMENT/PLAN: 1. Hypertensive emergency: Blood pressure normal however it seems as though the elevated blood pressures were on the right upper extremity in the normal blood pressures have been on the left upper extremity with concern of subclavian ar deidre stenosis on the left. Checking bilateral upper extremities to see if blood pressure is symmetrical. Otherwise, continue calcium channel alex, HCTZ, DL inhibitor. Low-sodium diet. 2. Elevated troponin: High-sensitivity troponin only slightly elevated and peaking at 19.4. Likely due to demand ischemia in the setting of severe hypertension. Given risk factors for coronary artery disease, documented atherosclerosis, and probable dyskinetic apex. Ischemic evaluation recommended. Stress echo ordered. 3. Chest pain: Atypical. In the setting of severe hypertension. Has been exercising at the gym with a equestrian trainer and despite more exercise than usual, denies angina, chest pain, shortness of breath. Noninvasive ischemic evaluation recommended as above. She states that she can walk on a treadmill and thus exercise stress echo ordered. 4. Mitral stenosis: Mild. Outpatient surveillance. Echo findings discussed with patient. 5. Abnormal echo: [place] seemed dyskinetic on echo images enhanced with IV echo contrast. Has documented atherosclerosis. No angina. Treat for possible underlying coronary disease. Would recommend invasive ischemic evaluation for symptoms concerning for angina. Normal LV systolic function. Antiplatelet therapy. High intensity statin therapy. 6. Atherosclerosis: Continue high intensity statin therapy. LDL is excellent. Continue antiplatelet therapy. Blood pressure control. Risk factor modification. 7. Fatigue/snores: Recommend sleep study as an outpatient and treatment as appropriate. 8. Disposition: Patient care communicated with Dr. Napoles of the primary hospitalist service. If stress echo unremarkable, can be discharged home from a cardiology perspective. She would like to be followed up in the outpatient sett ing. Will arrange for hospital follow-up in the cardiology office. Addendum: Left upper extremity blood pressure 149/87 mmHg; right upper extremity 131/78 mmHg. Stress echo was negative for ischemic changes. Poor exercise tolerance. Continue new antihypertensive regimen and follow-up in the cardiology office for monitoring. Today's visit was 65 min in duration, including [id number] time, counseling patient, coordinating care, reviewing records, and completing documentation. Thank you for allowing me to participate in the care of your patient. Please call for any other questions or concerns. Sincerely, Kelechi De La Paz M.D. History of Present Illness Reason for Consultation: chest pain, abnormal echo, +trop Requesting Physician: Mark Napoles MD Attending Physician: Mark Napoles MD History of Present Illness Ms. Tarango is a very pleasant 78-year-old female with a history significant for hypertension, stroke (2016), dyslipidemia, and osteoporosis. She was admitted on 03/18/2024 with hypertensive emergency. Prior to presentation, she had left-sided chest pain described as a mild ache that persisted for approximately 2 hours at rest. She also had a headache and did not feel well in general. She took her blood pressure at home and it was elevated at 205/117 mmHg. It remained elevated when she presented to the ER. Amlodipine was added to her regimen and her blood pressure has been well- controlled for greater than 1 day. She has not had any further chest pain. Her headache has resolved. In general, she has been more tired over the past year. She does not feel well rested in the morning when she wakes up. Her partner, Ketty, accompanied her today and states that she can hear her snoring in the other room. She denies paroxysmal nocturnal dyspnea. She has not had a sleep study. Despite this, she started going to [employer] with a equestrian trainer for the past 2 months. She exercises 3 days/week for 30 minutes, 30 minutes, and 60 minutes. She does weight training and also cardiovascular exercise. She tolerates it well without chest pain or shortness of breath. Cardiovascular exercise includes steps, rowing machine for 20 minutes, and a recumbent elliptical for 20 minutes. She denies syncope, near syncope, palpitations, edema, or bleeding such as melena, hematochezia, or hematuria. She has had the following studies/procedures: 1. Echo 03/19/2024 [facility]: Normal LV size and systolic function. EF 55-60%. Small area of apical dyskinesis. Moderate LVH. Mild left atrial dilation. Mild mitral stenosis. RVSP 35. Compared to prior study on 04/25/2017, mitral transvalvular gradient has mildly increased. [place] better visualized on current study. Review of systems: As above. Review of systems otherwise negative/unremarkable. Family history: Father at 62 with [place]. Mother had valve replacement at 82 and at 97. Social history: Smoked 1 to 2 packs/day but quit at the age 68. Occasional alcohol. No drugs. 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 No children. She lives with her partner, Ketty, who is sitting at the bedside. Allergies Allergy/AdvReac Type Severity Reaction Status Date / Time codeine AdvReac Mild UPSET Verified 03/18/24 16:55 STOMACH/NAUSEA oxycodone AdvReac Mild nausea Verified 03/18/24 16:55 Home Medications Medication Instructions Recorded Confirmed Type ascorbic acid (vitamin C) 500 mg 500 mg PO QAM 03/19/19 03/18/24 History tablet calcium carbonate (Calcium 600) 600 mg PO QAM 03/19/19 03/18/24 History multivitamin 1 tab PO QAM 03/19/19 03/18/24 History coenzyme Q10 10 mg capsule 10 mg PO QAM 11/18/19 03/18/24 History vitamin E 268 mg (400 unit) capsule 400 unit PO QAM 05/07/20 03/18/24 History cholecalciferol (vitamin D3) 50 50 mcg PO QAM 06/20/22 03/18/24 History mcg (2,000 unit) capsule pantoprazole 20 mg tablet,delayed 20 mg PO Q OTHER DAY 06/05/23 03/18/24 History release lisinopril 40 mg tablet 40 mg PO QAM #90 tabs 06/20/23 03/18/24 Rx atorvastatin 40 mg tablet 40 mg PO QAM 90 days #90 tabs 07/29/23 03/18/24 Rx triamcinolone acetonide 0.1 % 1 applic topical BID 2 weeks #30 11/09/23 03/18/24 Rx topical ointment grams clopidogrel 75 mg tablet 75 mg PO QAM 90 days #90 tabs 03/05/24 03/18/24 Rx alendronate 70 mg tablet (Fosamax) 70 mg PO WK 03/18/24 03/18/24 History hydrochlorothiazide 12.5 mg tablet 0 mg PO QAM 03/18/24 03/18/24 History Problem List (Updated 03/20/24 @ 14:02 by Tim De La Paz MD) Atherosclerosis Abnormal echocardiogram Mitral stenosis Snores Atypical chest pain Fatigue Vertebral artery stenosis Carotid artery stenosis History of CVA (cerebrovascular accident) 2015 -- residual numbness to left hand - takes plavix Cerebrovascular disease Elevated troponin (Acute) Severe hypertension (Acute) Hypertensive emergency Rotator cuff tendinitis Medicare annual wellness visit, subsequent (Chronic) History of compression fracture of vertebral column (10/08/20) L3 and T12 H/O: CVA (cerebrovascular accident) August 2016, right frontal and temporal lobes Impaired fasting glucose (Chronic) Sensorineural hearing loss (SNHL) of right ear with restricted hearing of left ear Cervical radiculopathy at C6 Vitamin D deficiency Osteoporosis Acid reflux Tubular adenoma of colon Tinnitus, bilateral worse in right ear Hypercholesteremia Hypertension Patient History Medical History History of acute pancreatitis Plantar fasciitis of right foot History of cellulitis 07/2022- left upper arm infection at site from flu shot, completed antibiotics, resolved per pt Osteoporosis Osteoarthritis History of pancreatitis Surgical History History of cataract surgery B/L History of wisdom tooth extraction History of colonoscopy History of laparoscopic cholecystectomy Family History Mother Diabetes Stage 3 chronic kidney disease Coronary heart disease Brother Colon cancer Father Myocardial infarction Other No family history of adverse response to anesthesia Denies family history of Ovarian cancer Prostate cancer Breast cancer Social History (Updated 01/02/24 @ 09:35 by KILO Hdz) Smoking Status: Former smoker Tobacco Type: Cigarettes Age Started Using Tobacco: 20; Age Quit Using Tobacco: 68; packs per day: 1; Second Hand Exposure: No; Do You Dip or Chew Tobacco: No; Hx Alcohol Use: Yes Alcohol type: beer, wine and hard liquor Alcohol Intake Frequency: 2-3 x/Week Hx Substance Use: No Preferred Language: Taiwanese Communication Ability: Effective Visual Impairment: No Limitations Hearing Ability: Normal Service Center Coordinator Required: No Beliefs That Will Affect Care: None marital status: Single Current Living Situation: Significant Other current occupational status: retired 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 Alert and oriented. HEENT: Anicteric sclera. Neck: No JVD. No bruits. Normal carotid upstrokes bilaterally. Cardiac: Regular. Normal S1-S2. No murmurs, rubs, or gallops. Pulmonary: Clear to auscultation bilaterally without wheezes, rales, or rhonchi. Abdomen: Soft, nontender, nondistended, with normoactive bowel sounds. No bruits noted. Extremities: 2+ radial pulses bilaterally. 2+ posterior tibialis pulses bilaterally. No significant pitting edema or cyanosis. Psychiatric: Affect appears appropriate. Chest: Nontender. Results & Data Vital Signs (Past 12 Hours) Vital Signs Temp Pulse Pulse Resp BP Pulse Ox O2 Del Method 03/20/24 11:40 36.6 C 74 16 115/71 94 Room Air 03/20/24 07:47 68 03/20/24 06:41 36.5 C 71 18 111/69 96 Room Air 03/20/24 04:10 36.7 C 81 20 101/69 93 Room Air Laboratory Results Laboratory Results - last 24 hr 03/20/24 05:51 Sodium 136 Potassium 3.7 Chloride 101 Carbon Dioxide 23 Anion Gap 12 H BUN 17 Creatinine 0.93 Est Cr Clr Drug Dosing 48.8 Est GFR ( Amer) 69.2 Est GFR (Non-Af Amer) 59.7 BUN/Creatinine Ratio 18.3 Glucose 118 H Calcium 8.7 Magnesium 1.7 Troponin I High Sens 13.9 D Triglycerides 70 Cholesterol 132 LDL Cholesterol, Calc 52 VLDL Cholesterol, Calc 14 HDL Cholesterol 66 Cholesterol/HDL Ratio 2.0 Vitamin B12 455 TSH 2.783 Diagnostic Findings On 03/20/2024, chart, labs, echo report reviewed. History and physical report reviewed. ECGs personally reviewed: ECG 03/18/2024 at 1326: Sinus rhythm 67 bpm. Poor R wave progression. LVH. ECG 03/18/2024 at 1748: Sinus rhythm 85 bpm. Poor R wave progression. Possible LVH. ECG 03/18/2024 at 2202: Sinus rhythm 82 bpm. Poor R wave progression. Telemetry personally reviewed: Sinus rhythm. Episode of nonsustained SVT on 03/18/2024 at 2150. Labs notable for normal renal function, normal potassium, normal blood counts, excellent lipids, normal transaminase levels, normal TSH. Brain MRI 03/19/2024: No acute abnormality. Left parietal lobe chronic infarct with encephalomalacia. Neck CTA 03/19/2024: Chronic occlusion of proximal to mid right vertebral artery with reconstitution of flow at C3 level. Left ICA 70%. Approximately 75% stenosis at the takeoff of the left common carotid artery and left subclavian artery. Right ICA 60%. Chest x-ray 03/18/2024: No acute disease per radiology. Medications Administered Current Inpatient Medications Acetaminophen (Acetaminophen 325 Mg Tab) 650 mg PO Q4H PRN PRN Reason: pain/fever Stop: 04/17/24 16:53 Al Hydrox/Mg Hydrox/Simethicone (Aluminum/Magnesium Susp 30 Ml Udc) 30 ml PO Q6H PRN PRN Reason: Dyspepsia Stop: 04/17/24 16:53 Alendronate Sodium (Alendronate Sodium 70 Mg Tab) 70 mg PO We@0630 [facility] Stop: 04/19/24 06:29 Last Admin: 03/20/24 06:04 Dose: 70 mg Amlodipine Besylate (Amlodipine Besylate 5 Mg Tab) [facility] Stop: 04/18/24 08:59 Last Admin: 03/20/24 08:34 Dose: 5 mg Ascorbic Acid (Ascorbic Acid 500 Mg Tab) 500 mg PO [facility] Stop: 04/18/24 08:59 Last Admin: 03/20/24 08:33 Dose: 500 mg Aspirin (Aspirin 81 Mg Ectab) [facility] [place] Stop: 04/18/24 19:44 Last Admin: 03/20/24 08:35 Dose: 81 mg Atorvastatin Calcium (Atorvastatin 40 Mg Tab) [facility] [place] Stop: 04/18/24 08:59 Last Admin: 03/20/24 08:33 Dose: 40 mg Calcium Carbonate (Calcium Carbonate 1250mg Tab) 1 [facility] [place] Stop: 04/18/24 08:59 Last Admin: 03/20/24 08:34 Dose: 1 tab Clonidine HCl (Clonidine Hcl 0.1 Mg Tab) 0.1 mg PO Q8 PRN PRN Reason: sbp >185 or dbp >95 Stop: 04/17/24 18:02 Clopidogrel Bisulfate (Clopidogrel Bisulfate 75 Mg Tab) [facility] [place] Stop: 04/18/24 08:59 Last Admin: 03/20/24 08:34 Dose: 75 mg Heparin Sodium (Porcine) (Heparin Sod 5,000 Unit/0.5 Ml Vial) 5,000 units SQ Q8 [facility] Stop: 04/17/24 21:59 Last Admin: 03/20/24 06:04 Dose: 5,000 units Hydrochlorothiazide (Hydrochlorothiazide 25 Mg Tab) 25 [facility] [place] Stop: 04/18/24 08:59 Last Admin: 03/20/24 08:33 Dose: 25 mg Lisinopril (Lisinopril 40 Mg Tab) 40 mg PO [facility] Stop: 04/18/24 08:59 Last Admin: 03/20/24 08:34 Dose: 40 mg Ondansetron HCl (Ondansetron Inj 2 Mg/Ml 2 Ml Vial) 4 mg IV Q6H PRN PRN Reason: Nausea Stop: 04/17/24 16:53 Pantoprazole Sodium (Pantoprazole 40 Mg Tab) 40 mg PO Q2D@0900 [facility] Stop: 04/17/24 18:29 Last Admin: 03/20/24 08:33 Dose: 40 mg Polyethylene Glycol (Polyethylene (Miralax) 17 Gm Pack) 17 gm PO DAILY PRN PRN Reason: Constipation Stop: 04/17/24 16:53 Triamcinolone Acetonide (Triamcinolone Acet 0.1% Oint 15 Gm Tube) 1 appln TOP BID [facility] Stop: 04/17/24 20:59 Last Admin: 03/20/24 08:35 Dose: 1 appln Vitamin D (Cholecalciferol 25 Mcg (1000 Units) Tab) 50 mcg [facility] [place] Stop: 04/18/24 08:59 Last Admin: 03/20/24 08:33 Dose: 50 mcg Vitamin E (Tocopheryl, Dl-Alpha 400 Units 180 Mg Cap) 400 [facility] [place] Stop: 04/18/24 08:59 Last Admin: 03/20/24 08:34 Dose: 400 units PG Care Time/CCT Total # of Minutes Spent Total Time Spent with Patient: Total time spent is greater than 50% in coordination of care (as documented) at patient's floor/unit and/or counseling patient: Coding Level of Care Code 94287 INT INP/OBS CARE MIN Diagnoses Hypertensive emergency I16.1 Elevated troponin R79.89 Atypical chest pain R07.89 Snores R06.83 Mitral stenosis I05.0 Abnormal echocardiogram R93.1 Atherosclerosis I70.90 Time Spent (min) 65
--- NOTE | 2024-03-20 15:41 | XCELERA ---
[id number] [id number]
--- NOTE | 2024-03-20 17:45 | Discharge Summary ---
Date of Service March 20, 2024 Admission HPI Per Admitting Provider This 78-year-old female with past medical history history significant for CVA 6 years, she is on Plavix, history of hypertension dyslipidemia, presents to the emergency room with complaints of headache and not feeling well, she takes lisinopril 40 mg daily as well as hydrochlorothiazide, her blood pressure usually well-controlled, she decided to check her blood pressure at home and was very elevated in the 200s, in the emergency room but still elevated, she will receive hydralazine, CT of the brain no acute strokes or hemorrhage, patient denies any numbness or weakness upper or lower extremity, no visual change, s till has a mild headache. Denies chest pain or shortness of breath, no fever or cough, no nausea no vomiting Discharge Exam gen - NAD, pleasant, overweight neck - no JVD; +bruit on left heart - RRR, s1 s2, no murmur lungs - CTA b/l abd - soft NT ND BS+ ext - no edema, pulses 2+ b/l neuro - no facial droop; strength 5/5 x 4 exts; no pronator drift; speech clear/fluent Discharge Data Allergies Allergy/AdvReac Type Severity Reaction Status Date / Time codeine AdvReac Mild UPSET Verified 03/18/24 16:55 STOMACH/NAUSEA oxycodone AdvReac Mild nausea Verified 03/18/24 16:55 Consultations 03/18/24 16:36 ED Decision to Admit Stat 03/20/24 05:51 Consult Cardiology Routine 03/20/24 17:26 Burn CD for patient Stat Ordered Studies 03/18/24 15:36 CT head/brain wo con Stat 03/19/24 09:33 CT angio head w con Routine CT angio neck with con Routine 03/19/24 15:24 MR brain wo con Routine Hospital Course (1) Hypertensive emergency: Presented with systolic blood pressure of 200+ with headache and chest discomfort Both symptoms improved Minimal troponin elevation (see below) BPs significantly improved with adding amlodipine 5mg daily to her typical lisinopril and hydrochlorothiazide (2) Elevated troponin: minimal elevation peak trop - 19.4 repeat in am at minimum she had myocardial demand ischemia in setting of #1 above echo ordered/results pending EKG w/o ischemic changes [id number], she had chest pain yesterday in the setting of #1 and has had extreme fatigue for several weeks strong famhx CAD await echo to determine next steps (3) Fatigue: severe x 2-3+ weeks per spouse etiology? check TSH check B12 await echo await MRI brain (4) Cerebrovascular disease: prior h/o right-sided frontal lobe CVA several years ago multiple lacunes in addition to the right frontal lobe CVA seen on CT head yesterday there is a new appearing left-sided parietal lobe CVA - chronicity uncertain strongly advised repeat MRI brain to gather more information cont plavix cont meds for BP control check lipids am (5) H/O: CVA (cerebrovascular accident): Continue Plavix, statin Check lipids am Check TSH Cont BP meds including amlodipine see above/ below (6) Acid reflux: Continue PPI (7) Hypercholesteremia: Continue lipitor 40mg daily Check lipid profile am (8) Carotid artery stenosis: b/l on CTA neck today 60% on right, 70% on left await MRI brain to r/o acute or subacute CVA aggressive secondary prevention needed statin, plavix, etc depending on MRI findings may need to see vascular surgery to determine timing of any future procedure on her carotids (9) Vertebral artery stenosis: right-sided occluded Plan spouse updated at bedside extensively Discharge Plan Discharge Items Patient Disposition: Home - Self-Care Reason For Visit: Hypertensive emergency Discharge Diagnosis: 1. headache and chest discomfort - due to hypertensive emergency - resolved 2. uncontrolled high blood pressure - much improved 3. abnormal echocardiogram - follow-up with [facility] needed 4. bilateral carotid artery stenosis - vascular surgery follow-up needed 5. multiple old strokes on brain imaging 6. fatigue - vitamin B12 level, TSH (thyroid level) - both normal; CBC also normal 7. question of sleep apnea - sleep study advised Activity: As commented below Activity Comment: gradually increase your activities over the next week Non-emergency contact: Primary Care Provider, Specialist and Composition Teacher Call non-emergency contact if: you have any medication questions and your symptoms worsen Follow-up/Referrals: [facility] [Outside] (we will refer you to Vascular Surgery for your carotid disease at [facility]) Tim De La Paz MD [Physician] - (Dr De La Paz's office will be contacting you with a follow-up appointment) Carol Barry MD [Primary Care Provider] - (1 week) Diet: Heart Healthy Addtl Attending Provider Instructions: Ms Tarango, You were hospitalized due to having severely uncontrolled high blood pressure. The high blood pressure likely caused your headache & chest discomfort. Your blood pressure improved with additional medicine given at the hospital. A CT scan of the head showed that an additional stroke was present that hadn't been seen in the past. Therefore, we performed MRI brain as well as CT scans of your head/neck arteries. The MRI brain did indeed show multiple OLD strokes but no recent/acute stroke. The CTs of your arteries showed significant clogging in both carotid arteries - worse on the left (70% blockage on left, 60% blockage on right). In addition, an echocardiogram of your heart showed that the heart muscle in one portion may not be squeezing as well as other portions. The most common cause of this abnormality is having coronary artery disease. Therefore, Dr Kelechi De La Paz from cardiology saw you in consult and recommended a stress test. You did well on the stress test, but we still see a small abnormality in the muscle of the heart. Dr De La Paz is going to follow this carefully and, if you have chest pains or other heart symptoms in the future, he likely would then pursue a heart catheterization. Recommendations - 1. for high blood pressure - * amlodipine 2.5mg once daily each morning starting 03/21/24 * check your blood pressure at least once daily at home; keep a log of your blood pressure readings * if you can checking it twice daily would be best * resume your hydrochlorothiazide blood pressure medicine at a dose of 12.5mg each morning 2. for carotid disease (see handout) - we will refer you to vascular surgery at [facility] in [facility] ; be sure to bring the CD with you that contains your pictures of the brain, the blood vessels, etc 3. we will be referring you to Dr De La Paz from [facility] to keep tabs on your blood pressure, chest discomforts, etc 4. activity - plan to take it easy the next 3-4 days, then gradually increase activities over a 7-10 day period thereafter 5. if you have any chest pain (at rest or with exertion), shortness of breath (at rest or with activity), etc - let Dr De La Paz know about these symptoms 6. for your fatigue please talk to your family doctor about getting a sleep study to rule out sleep apnea as a cause of your fatigue Follow-up - see separate section Return to [facility] if - * you have fevers over 100 degrees * you have worsening shortness of breath or chest pains * you have severe headaches * you have dizziness or lightheadedness * any other concerns It was our pleasure to care for you! -Dr Napoles Pending Studies at Discharge: Yes Studies:: tick-borne illness labs Stand-Alone Forms: [facility], Smoking Cessation Medications and DC Order Prescriptions: New amlodipine 2.5 mg tablet 2.5 mg PO DAILY Qty: 30 2RF Rx Instructions: for high blood pressure Continued lisinopril 40 mg tablet 40 mg PO QAM Qty: 90 3RF atorvastatin 40 mg tablet 40 mg PO QAM 90 Days Qty: 90 4RF clopidogrel 75 mg tablet 75 mg PO QAM 90 Days Qty: 90 4RF coenzyme Q10 10 mg capsule 10 mg PO QAM calcium carbonate [Calcium 600] 600 mg calcium (1,500 mg) tablet 600 mg PO QAM multivitamin tablet 1 tab PO QAM ascorbic acid (vitamin C) 500 mg tablet 500 mg PO QAM triamcinolone acetonide 0.1 % ointment 1 applic topical BID 14 Days Qty: 30 3RF vitamin E 400 unit Capsule 400 unit PO QAM cholecalciferol (vitamin D3) 50 mcg (2,000 unit) capsule 50 mcg PO QAM pantoprazole 20 mg tablet,delayed release (DR/EC) 20 mg PO Q OTHER DAY Rx Instructions: Take 20mg by mouth every other day alendronate [Fosamax] 70 mg tablet 70 mg PO WK Rx Instructions: Take 1 tablet, once weekly with plain water. Patient stated she takes every Monday Changed hydrochlorothiazide 12.5 mg tablet 12.5 mg PO QAM Qty: 1 0RF Rx Instructions: Per pt, this has been on hold since 11/2023 but she does not want it removed from the list. Discharge Orders: Discharge Order (Routine); Ordered 03/20/24 Ordered By: Mark Sheffield/Other Patient Handouts: Carotid Artery Problems: Stroke, Carotid Artery Disease Admission Data Admit Date/Time: 03/18/24 16:54 Attending Provider: Mark Napoles Admit Provider: Daphne Kamara Primary Care Provider: Carol Barry Other Providers: Daphne Kamara; Tim De La Paz Coding Diagnoses Hypertensive emergency I16.1 Elevated troponin R79.89 Fatigue R53.83 Cerebrovascular disease I67.9 H/O: CVA (cerebrovascular accident) Z86.73 Acid reflux K21.9 Hypercholesteremia E78.00 Carotid artery stenosis I65.29 Vertebral artery stenosis I65.09
[2024-03-22 07:22] LABS: Babesia microti DNA Not Detected (Not Detected)
[2024-03-22 17:07] LABS: Ehrlichia chaff DNA Bld Negative (Negative)
== END 2024-03-20 18:55 | disposition home or self-care (01) ==
LOC: 2W 12:21 → ED 12:21 → SUATTDRO 16:54 → 2W 18:15